=== PATIENT | female | born 1980 | race Hispanic/Latino ===

== ENCOUNTER 2017-08-01 10:27 | Emergency (ER) | payer OTHER ==
[~2017-08-01 10:27] MED LIST: ALBU8.5H8 IH; CICL6.1H2 IH; MOME13HF2 IH; MONT10TA21 PO
[2017-08-01] MEDS ORDERED: IPRATROPIUM/ALBUTEROL SULFATE 3 ML SOLUTION IH ONE (10:50)
[2017-08-01] MEDS ORDERED: METHYLPREDNISOLONE SOD SUCC 125MG/2ML VIAL ONE (10:51)
[2017-08-01] MEDS ORDERED: MAGNESIUM 2GM PREMIX 50ML 50 ML IV ONE (11:02)
[2017-08-01 11:04] LABS: BASOPHILS % (AUTO) 0.8 % (0.0-5.0); EOSINOPHILS % (AUTO) 5.9 % (0.0-8.0); HEMATOCRIT 28.6 % (36-48); LYMPHOCYTES % (AUTO) 29.3 % (21.0-51.0); MEAN CORPUSCULAR HEMOGLOBIN 21.5 pg (27.0-33.0); MEAN CORPUSCULAR HGB CONC 31.2 g/dL (32.0-36.0); MEAN CORPUSCULAR VOLUME 68.7 fL (79-99); MONOCYTES % (AUTO) 4.7 % (3.0-13.0); NEUTROPHILS % (AUTO) 59.3 % (40.0-77.0); PLATELET COUNT (AUTO) 360 K/uL (130-400); RED BLOOD CELL COUNT(AUTO) 4.16 MIL/uL (4.00-5.50); RED CELL DISTRIBUTION WIDTH 19.6 % (11.0-15.5); WHITE BLOOD COUNT (AUTO) 7.2 K/uL (4.8-10.8)
[2017-08-01 11:24] LABS: CREATININE 0.9 mg/dL (0.5-1.5)
[2017-08-01 11:30] LABS: ALBUMIN 3.3 g/dL (3.5-5.0); BILIRUBIN,DIRECT 0.1 mg/dL (0.0-0.3); BILIRUBIN,TOTAL 0.3 mg/dL (0.2-1.0); TOTAL PROTEIN, SERUM 7.4 g/dL (6.0-8.3)
[2017-08-01] MEDS ORDERED: ALBUTEROL SULFATE 0.083% 2.5 MG/3 ML INH IH ONE ×4 (11:42→11:43)
== END 2017-08-01 13:29 | disposition home or self-care (01) ==
LOC: EDH 10:27
DX: J45.41 Moderate persistent asthma with (acute) exacerbation (principal)
CPT/HCPCS: 36415; 71045; 80048; 80076; 84484; 85025; 93005; 94640; 94644; 94761; 96365; 96375; 99285; J2930; J3475

== ENCOUNTER 2017-11-26 11:08 | Emergency (ER) | payer MEDICAID, OTHER ==
[2017-11-26] MEDS ORDERED: IPRATROPIUM/ALBUTEROL SULFATE 3 ML SOLUTION IH ONE (12:16)
[2017-11-26] MEDS ORDERED: DEXAMETHASONE SOD PHOSPHATE 10MG/ML 1ML VIAL ONE (12:28)
== END 2017-11-26 12:45 | disposition home or self-care (01) ==
LOC: EDH 11:08
DX: J10.1 Influenza due to other identified influenza virus with other respiratory manifestations (principal); J45.21 Mild intermittent asthma with (acute) exacerbation
CPT/HCPCS: 94640; 96372; 99283; J1100

== ENCOUNTER 2017-11-28 00:05 | Emergency (ER) | payer MEDICAID, OTHER ==
[2017-11-28] MEDS ORDERED: IPRATROPIUM/ALBUTEROL SULFATE 3 ML SOLUTION IH ONE (00:29)
[2017-11-28] MEDS ORDERED: ALBUTEROL SULFATE 0.083% 2.5 MG/3 ML INH IH ONE ×2 (00:39)
[2017-11-28] MEDS ORDERED: DEXAMETHASONE SOD PHOSPHATE 10MG/ML 1ML VIAL ONE (01:24)
== END 2017-11-28 02:33 | disposition home or self-care (01) ==
LOC: EDH 00:05
DX: J45.901 Unspecified asthma with (acute) exacerbation (principal)
CPT/HCPCS: 71045; 94640 ×3; 96372; 99285; J1100

== ENCOUNTER 2018-06-20 12:30 | Emergency (ER) | payer OTHER ==
[2018-06-20 13:34] LABS: APPEARANCE,URINE TURBID (CLEAR); BILIRUBIN,URINE SMALL (NEGATIVE); COLOR,URINE RED (YELLOW); GLUCOSE, URINE (UA) NEGATIVE (NEGATIVE); KETONES,URINE 5 mg/dL (NEGATIVE); LEUKOCYTE ESTERASE ,URINE NEGATIVE (NEGATIVE); NITRATE,URINE POSITIVE (NEGATIVE); OCCULT BLOOD,URINE LARGE (NEGATIVE); PROTEIN,URINE 100 mg/dL (NEGATIVE)
[2018-06-20 13:36] LABS: HCG,QUAL RESULT NEGATIVE (NEGATIVE)
[2018-06-20 13:43] LABS: BACTERIA,URINE Rare /HPF (None Seen); RBC,URINE TNTC /HPF (0-1); SQUAMOUS EPITHELIAL CELL,UR Few /HPF (0-2); WBC,URINE 0-1 /HPF (0-1)
[2018-06-20 13:50] LABS: BASOPHILS % (AUTO) 1.1 % (0.0-5.0); EOSINOPHILS % (AUTO) 4.6 % (0.0-8.0); LYMPHOCYTES % (AUTO) 32.7 % (21.0-51.0); MEAN CORPUSCULAR HEMOGLOBIN 25.3 pg (27.0-33.0); MEAN CORPUSCULAR HGB CONC 33.1 g/dL (32.0-36.0); MEAN CORPUSCULAR VOLUME 76.6 fL (79-99); MONOCYTES % (AUTO) 5.3 % (3.0-13.0); NEUTROPHILS % (AUTO) 56.3 % (40.0-77.0); NUCLEATED RED BLOOD CELLS 0.1 % (0.0-0.19); PLATELET COUNT (AUTO) 333 K/uL (130-400); RED BLOOD CELL COUNT(AUTO) 3.52 MIL/uL (4.00-5.50); RED CELL DISTRIBUTION WIDTH 16.8 % (11.0-15.5); WHITE BLOOD COUNT (AUTO) 4.3 K/uL (4.8-10.8)
[2018-06-20 13:57] LABS: CHLORIDE 104 mmol/L (101-111); CREATININE 0.8 mg/dL (0.5-1.5); GLUCOSE,RANDOM 103 mg/dL (70-105); POTASSIUM 3.6 mmol/L (3.5-5.1); SODIUM SERUM 137 mmol/L (136-145); UREA NITROGEN, BLOOD 13 mg/dL (7-18)
[2018-06-20 14:02] LABS: CARBON DIOXIDE 26 mmol/L (21-32); INR 1.03 (0.85-1.15); PARTIAL THROMBOPLASTIN TIME 29.5 SEC (26.3-35.5); PROTHROMBIN TIME 10.8 SEC (9.6-11.6)
== END 2018-06-20 15:29 | disposition home or self-care (01) ==
LOC: EDH 12:30
DX: N92.1 Excessive and frequent menstruation with irregular cycle (principal); J45.909 Unspecified asthma, uncomplicated
CPT/HCPCS: 36415; 76856; 80048; 81001; 81025; 85025; 85610; 85730

== ENCOUNTER 2018-09-03 19:18 | Inpatient (IN) | payer OTHER ==
[~2018-09-03] VITALS: Ht 157.5 cm; Wt 126.6 kg
[2018-09-03 19:40] LABS: BASOPHILS % (AUTO) 0.6 % (0.0-5.0); EOSINOPHILS % (AUTO) 2.2 % (0.0-8.0); LYMPHOCYTES % (AUTO) 21.9 % (21.0-51.0); MEAN CORPUSCULAR HEMOGLOBIN 21.5 pg (27.0-33.0); MEAN CORPUSCULAR HGB CONC 30.9 g/dL (32.0-36.0); MEAN CORPUSCULAR VOLUME 69.6 fL (79-99); MONOCYTES % (AUTO) 5.5 % (3.0-13.0); NEUTROPHILS % (AUTO) 69.8 % (40.0-77.0); NUCLEATED RED BLOOD CELLS 0.1 % (0.0-0.19); PLATELET COUNT (AUTO) 411 K/uL (130-400); RED BLOOD CELL COUNT(AUTO) 2.96 MIL/uL (4.00-5.50); RED CELL DISTRIBUTION WIDTH 17.5 % (11.0-15.5)
[2018-09-03] MEDS ORDERED: ASPIRIN 325 MG TABLET ONE (19:43)
[2018-09-03 19:47] LABS: CREATININE 1.1 mg/dL (0.5-1.5); POTASSIUM 3.4 mmol/L (3.5-5.1)
[2018-09-03 19:52] LABS: ALBUMIN 3.3 g/dL (3.5-5.0); BILIRUBIN,TOTAL 0.2 mg/dL (0.2-1.0); TOTAL PROTEIN, SERUM 7.2 g/dL (6.0-8.3)
[2018-09-03 20:00] LABS: B-TYPE NATRIURETIC PEPTIDE 33 pg/mL (0-100)
[2018-09-03 20:02] LABS: HEMATOCRIT 20.6 % (36-48)
[2018-09-03 20:02] LABS: AMPHET/METH SCREEN,URINE NEGATIVE (NEGATIVE); BARBITURATE SCREEN, URINE NEGATIVE (NEGATIVE); BENZODIAZEPINES SCREEN,URINE NEGATIVE (NEGATIVE); CANNABINOID SCREEN,URINE NEGATIVE (NEGATIVE); COCAINE SCREEN,URINE NEGATIVE (NEGATIVE); OPIATE SCREEN,URINE NEGATIVE (NEGATIVE); PHENCYCLIDINE SCREEN,URINE NEGATIVE (NEGATIVE)
[2018-09-03] MEDS ORDERED: ACETAMINOPHEN 325 MG TAB PO PRN (21:30)
[2018-09-03] MEDS ORDERED: ONDANSETRON HCL 4 MG/2 ML VIAL IV PRN (21:30)
[2018-09-03] MEDS: SERTRALINE HCL 50 MG TABLET PO SCH (21:45)
[2018-09-03] MEDS ORDERED: HYDROXYZINE HCL 25 MG TABLET ONE (22:07)
[2018-09-03] MEDS ORDERED: SERTRALINE HCL 50 MG TABLET ONE (22:07)
[2018-09-03] MEDS ORDERED: SODIUM CHLORIDE 0.9% 250 ML IV ONE (23:48)
--- NOTE | 2018-09-04 01:20 | NUR ---
PT. RECEIVED FROM ER VIA STRETCHER. PRBC UNIT #1 INFUSING.
--- NOTE | 2018-09-04 01:20 | NUR ---
ONE YELLOW BRACELET, 2 RINGS AND A PAIR OF LOOP EARRINGS. Addendum: 09/04/18 at 0440 by EMMY LVOE RN RN Amended: Links added.
[2018-09-04 01:25] VITALS: BP 136/78
[2018-09-04 03:00] VITALS: BP 162/74
--- NOTE | 2018-09-04 03:00 | NUR ---
PRBC #1 INFUSED, VS STABLE.
--- NOTE | 2018-09-04 03:15 | NUR ---
PRBC #2 STARTED. VS REMAIN STABLE. NO REACTION NOTED.
[2018-09-04] MEDS ORDERED: ALBU8.5H8 IH ×2 (04:49)
[2018-09-04] MEDS ORDERED: HYD25 PO ×2 (04:51)
[2018-09-04] MEDS ORDERED: SERT50TA PO ×2 (04:52)
[2018-09-04] MEDS ORDERED: ADV250 IH ×2 (04:54)
--- NOTE | 2018-09-04 06:00 | NUR ---
PRBC #2 INFUSED, NORMAL SALINE INFUSING. PT. DENIED TRANSFUSION REACTION
[2018-09-04 07:48] VITALS: BP 122/65
--- NOTE | 2018-09-04 08:05 | NUR ---
ROUNDING DR. Adkins AND JOHNATHAN DESAI AT BEDSIDE TO ASSESS AND TALK TO PT. PT DENIES PAIN AND HAS NO COMPLAINTS AT THIS TIME.
[2018-09-04 08:11] LABS: HEMATOCRIT 27.6 % (36-48); MEAN CORPUSCULAR HGB CONC 30.8 g/dL (32.0-36.0); MEAN CORPUSCULAR VOLUME 74.6 fL (79-99); NUCLEATED RED BLOOD CELLS 0.1 % (0.0-0.19); PLATELET COUNT (AUTO) 364 K/uL (130-400); RED CELL DISTRIBUTION WIDTH 18.1 % (11.0-15.5)
[2018-09-04] MEDS: ACETAMINOPHEN 325 MG TAB PO PRN (08:26)
[2018-09-04] MEDS: FAMOTIDINE/PF 20 MG/2 ML VIAL IV SCH ×2 (08:26→20:35)
[2018-09-04] MEDS: HYDROXYZINE HCL 25 MG TABLET PO PRN ×2 (08:28→16:52)
--- NOTE | 2018-09-04 08:30 | NUR ---
PT STATED WAS FEELING ANXIOUS AND HAD SOME SLIGHT CHEST PAIN, REPORTED AT A 2. PT REQUESTED ATARAX FOR ANXIETY AND WAS GIVEN AT THIS TIME. WILL CONTINUE TO MONITOR.
[2018-09-04] MEDS ORDERED: VENTOLIN HFA IH PRN (09:00)
--- NOTE | 2018-09-04 11:45 | NUR ---
REPORTED TO DR. Adkins THAT PT CONTINUES WITH CHEST PAIN. NEW ORDERS RECEIVED
[2018-09-04 11:47] VITALS: BP 119/55
[2018-09-04 12:37] LABS: HEMATOCRIT 25.9 % (36-48); MEAN CORPUSCULAR HGB CONC 31.9 g/dL (32.0-36.0); MEAN CORPUSCULAR VOLUME 72.3 fL (79-99); NUCLEATED RED BLOOD CELLS 0.1 % (0.0-0.19); PLATELET COUNT (AUTO) 353 K/uL (130-400); RED BLOOD CELL COUNT(AUTO) 3.59 MIL/uL (4.00-5.50); RED CELL DISTRIBUTION WIDTH 18.3 % (11.0-15.5); WHITE BLOOD COUNT (AUTO) 6.4 K/uL (4.8-10.8)
--- NOTE | 2018-09-04 12:50 | NUR ---
REPORT RECEIVED FROM WILLIAM HARRIS (). PATIENT TRANSFERRED FROM ROOM 119 TO 312 VIA WHEELCHAIR. PATIENT STABLE AT THIS TIME.
[2018-09-04 12:55] LABS: CREATINE KINASE, TOTAL 40 U/L (21-232); MYOGLOBIN 33 ng/mL (10-92); TROPONIN I < 0.04 ng/mL (0.00-0.06)
[2018-09-04 14:33] VITALS: BP 118/95
--- NOTE | 2018-09-04 14:38 | NUR ---
DCP CM met with pt discussed dc plans. Pt is independent prior to admission, lives at home with spouse. Denies any equipments/services. Pt feels safe to go back home, still drives, spouse able to assist with transportation and needs as necessry. DC plan to home once stable. CM to cont to follow up. Addendum: 09/04/18 at 1440 by MIROSLAVA BECKMAN LVN CM Amended: Links added.
[2018-09-04] MEDS ORDERED: HYDROCODONE/ACETAMINOPHEN 5/325 MG TAB PO PRN (17:00)
[2018-09-04 19:15] VITALS: BP 149/81
[2018-09-04 20:17] LABS: CREATINE KINASE, TOTAL 42 U/L (21-232); MYOGLOBIN 26 ng/mL (10-92); TROPONIN I < 0.04 ng/mL (0.00-0.06)
[2018-09-04] MEDS: FERROUS SULFATE 325 MG TABLET.DR PO SCH (20:35)
[2018-09-04] MEDS: SERTRALINE HCL 50 MG TABLET PO SCH (20:35)
[2018-09-05 00:10] VITALS: BP 143/79
[2018-09-05] MEDS: HYDROXYZINE HCL 25 MG TABLET PO PRN ×2 (00:22→09:03)
[2018-09-05] MEDS: ACETAMINOPHEN 325 MG TAB PO PRN (00:23)
[2018-09-05 04:12] VITALS: BP 145/68
[2018-09-05 06:43] LABS: MEAN CORPUSCULAR HEMOGLOBIN 22.5 pg (27.0-33.0); MEAN CORPUSCULAR HGB CONC 31.6 g/dL (32.0-36.0); MEAN CORPUSCULAR VOLUME 71.1 fL (79-99); NUCLEATED RED BLOOD CELLS 0.1 % (0.0-0.19); PLATELET COUNT (AUTO) 370 K/uL (130-400); RED BLOOD CELL COUNT(AUTO) 3.66 MIL/uL (4.00-5.50); RED CELL DISTRIBUTION WIDTH 18.1 % (11.0-15.5); WHITE BLOOD COUNT (AUTO) 7.4 K/uL (4.8-10.8)
[2018-09-05 07:07] LABS: CARBON DIOXIDE 26 mmol/L (21-32); CHLORIDE 106 mmol/L (101-111); CREATINE KINASE, TOTAL 39 U/L (21-232); CREATININE 0.8 mg/dL (0.5-1.5); GLOMERULAR FILTR. RATE CALC 86 mL/min (>60); GLUCOSE,RANDOM 99 mg/dL (70-105); MYOGLOBIN 29 ng/mL (10-92); POTASSIUM 3.8 mmol/L (3.5-5.1); SODIUM SERUM 138 mmol/L (136-145); TROPONIN I < 0.04 ng/mL (0.00-0.06); UREA NITROGEN, BLOOD 10 mg/dL (7-18)
[2018-09-05 08:00] VITALS: BP 122/52
[2018-09-05] MEDS: FERROUS SULFATE 325 MG TABLET.DR PO SCH (09:01)
[2018-09-05] MEDS: FAMOTIDINE/PF 20 MG/2 ML VIAL IV SCH (09:01)
[2018-09-05] MEDS ORDERED: FERR324T4 PO ×2 (10:11)
[2018-09-05 11:45] VITALS: BP 120/65
[2018-09-05 12:24] LABS: CREATINE KINASE, TOTAL 44 U/L (21-232); MYOGLOBIN 24 ng/mL (10-92); TROPONIN I < 0.04 ng/mL (0.00-0.06)
--- NOTE | 2018-09-05 15:30 | NUR ---
DISCHARGE PATIENT GIVEN DISCHARGE INSTRUCTIONS VIA TEACH BACK. RX GIVEN FOR FERROUS SULFATE 325MG 1 TAB PO TID X 30 DAYS. PATIENT WITH FOLLOW UP APPOINTMENT WITH DR. ALANNAH CONWAY AT [facility] AND DR. VALLE ([employer]). 20G PIV TO LAC DISCONTINUED, TIP INTACT. PATIENT STABLE AT THIS TIME. PATIENT WHEELED DOWN TO LOBBY BY BARBARA HALE AND SPOUSE.
== END 2018-09-05 15:30 | disposition home or self-care (01) | DRG 392 ==
LOC: EDH 19:18 → OBSVTOIN 19:19 → EDHIP 19:19 → WSH 09-04 01:30 → 3BH 09-04 12:58
PROVIDERS: ADMIT Hospitalist; ATTEND Hospitalist
PROC: 30233N1 Transfusion of Nonautologous Red Blood Cells into Peripheral Vein, Percutaneous Approach (ICD-10-PCS; principal; 2018-09-03)
DX: K21.9 Gastro-esophageal reflux disease without esophagitis (principal); N17.9 Acute kidney failure, unspecified; N92.0 Excessive and frequent menstruation with regular cycle; D50.0 Iron deficiency anemia secondary to blood loss (chronic); J45.909 Unspecified asthma, uncomplicated; F41.9 Anxiety disorder, unspecified; D75.1 Secondary polycythemia; Z82.5 Family history of asthma and other chronic lower respiratory diseases; Z83.3 Family history of diabetes mellitus; Z82.49 Family history of ischemic heart disease and other diseases of the circulatory system; Z82.3 Family history of stroke; Z82.0 Family history of epilepsy and other diseases of the nervous system
CPT/HCPCS: 36415; 36430; 71045; 80048; 80053; 80305; 82550; 83874; 83880; 84484; 85025; 85027; 86850; 86900; 86901; 86922; 93005; 99291; G0378; J3490; J7030; P9016

== ENCOUNTER 2018-09-07 22:48 | Emergency (ER) | payer OTHER ==
[~2018-09-07 22:48] MED LIST changes: +ADV250 IH; +FERR324T4 PO; +HYD25 PO; +SERT50TA PO
[2018-09-07 23:50] LABS: BASOPHILS % (AUTO) 0.9 % (0.0-5.0); EOSINOPHILS % (AUTO) 3.7 % (0.0-8.0); HEMATOCRIT 27.6 % (36-48); LYMPHOCYTES % (AUTO) 21.3 % (21.0-51.0); MEAN CORPUSCULAR HEMOGLOBIN 23.2 pg (27.0-33.0); MEAN CORPUSCULAR HGB CONC 31.9 g/dL (32.0-36.0); MEAN CORPUSCULAR VOLUME 72.9 fL (79-99); MONOCYTES % (AUTO) 4.8 % (3.0-13.0); NEUTROPHILS % (AUTO) 69.3 % (40.0-77.0); PLATELET COUNT (AUTO) 380 K/uL (130-400); RED BLOOD CELL COUNT(AUTO) 3.78 MIL/uL (4.00-5.50); RED CELL DISTRIBUTION WIDTH 19.5 % (11.0-15.5); WHITE BLOOD COUNT (AUTO) 7.4 K/uL (4.8-10.8)
[2018-09-08] LABS: APPEARANCE,URINE Cloudy (CLEAR); BILIRUBIN,URINE Negative (NEGATIVE); COLOR,URINE Dark Yellow (YELLOW); GLUCOSE, URINE (UA) Negative (NEGATIVE); KETONES,URINE Trace mg/dL (NEGATIVE); LEUKOCYTE ESTERASE ,URINE Negative (NEGATIVE); NITRATE,URINE Negative (NEGATIVE); OCCULT BLOOD,URINE Negative (NEGATIVE); PROTEIN,URINE POS 1+ mg/dL (NEGATIVE)
[2018-09-08 00:05] LABS: CREATININE 1.5 mg/dL (0.5-1.5); POTASSIUM 4.1 mmol/L (3.5-5.1)
[2018-09-08 00:17] LABS: ALBUMIN 3.2 g/dL (3.5-5.0); BILIRUBIN,TOTAL 0.3 mg/dL (0.2-1.0); TOTAL PROTEIN, SERUM 7.5 g/dL (6.0-8.3)
[2018-09-08 00:22] LABS: BACTERIA,URINE Few /HPF (None Seen); MUCUS,URINE Moderate LPF (None Seen); RBC,URINE 0-1 /HPF (0-1); WBC,URINE 0-1 /HPF (0-1)
[2018-09-08] MEDS ORDERED: DICYCLOMINE HCL 10 MG/ML 2ML AMP IM ONE (01:06)
[2018-09-08] MEDS ORDERED: CYCLOBENZAPRINE HCL 10 MG TABLET ONE (01:07)
[2018-09-08] MEDS ORDERED: METOCLOPRAMIDE 10 MG TABLET ONE (01:07)
[2018-09-08] MEDS ORDERED: ONDANSETRON ODT 4 MG TAB ONE (01:08)
== END 2018-09-08 02:16 | disposition home or self-care (01) ==
LOC: EDH 22:48
DX: R10.30 Lower abdominal pain, unspecified (principal); R19.7 Diarrhea, unspecified; R11.0 Nausea; J45.909 Unspecified asthma, uncomplicated; F41.9 Anxiety disorder, unspecified; F32.9 Major depressive disorder, single episode, unspecified; Z98.890 Other specified postprocedural states
CPT/HCPCS: 36415; 80053; 81001; 81025; 83690; 85025; 96372; 99284; J0500

== ENCOUNTER 2018-10-26 16:24 | Emergency (ER) | payer MEDICAID ==
[~2018-10-26 16:24] MED LIST changes: -CICL6.1H2 IH; -MOME13HF2 IH; -MONT10TA21 PO
[2018-10-26 17:21] LABS: CREATININE 0.8 mg/dL (0.5-1.5); POTASSIUM 3.3 mmol/L (3.5-5.1)
[2018-10-26 17:24] LABS: BASOPHILS % (AUTO) 0.8 % (0.0-5.0); EOSINOPHILS % (AUTO) 6.9 % (0.0-8.0); HEMATOCRIT 26.6 % (36-48); LYMPHOCYTES % (AUTO) 28.9 % (21.0-51.0); MEAN CORPUSCULAR HGB CONC 31.7 g/dL (32.0-36.0); MEAN CORPUSCULAR VOLUME 72.6 fL (79-99); MONOCYTES % (AUTO) 5.1 % (3.0-13.0); NEUTROPHILS % (AUTO) 58.3 % (40.0-77.0); PLATELET COUNT (AUTO) 385 K/uL (130-400); RED BLOOD CELL COUNT(AUTO) 3.66 MIL/uL (4.00-5.50); WHITE BLOOD COUNT (AUTO) 5.4 K/uL (4.8-10.8)
[2018-10-26 17:27] LABS: ALCOHOL, BLOOD < 3 mg/dL (0-10); INR 1.03 (0.85-1.15); PARTIAL THROMBOPLASTIN TIME 25.7 SEC (26.3-35.5); PROTHROMBIN TIME 10.8 SEC (9.6-11.6)
[2018-10-26 17:29] LABS: ACETAMINOPHEN < 1 mcg/mL (10-30); SALICYLATE < 2.8 mg/dL (2.8-20.0)
[2018-10-26 17:30] LABS: APPEARANCE,URINE Clear (CLEAR); BILIRUBIN,URINE Negative (NEGATIVE); COLOR,URINE Yellow (YELLOW); GLUCOSE, URINE (UA) Negative (NEGATIVE); KETONES,URINE Negative (NEGATIVE); LEUKOCYTE ESTERASE ,URINE Negative (NEGATIVE); NITRATE,URINE Negative (NEGATIVE); OCCULT BLOOD,URINE Moderate (NEGATIVE); PH,URINE 6.5 (5.0-8.0); PROTEIN,URINE Negative (NEGATIVE)
[2018-10-26 17:32] LABS: ALBUMIN 3.1 g/dL (3.5-5.0); BILIRUBIN,TOTAL 0.2 mg/dL (0.2-1.0); TOTAL PROTEIN, SERUM 7.2 g/dL (6.0-8.3)
[2018-10-26 17:38] LABS: HCG,QUAL RESULT NEGATIVE (NEGATIVE)
[2018-10-26 17:46] LABS: BACTERIA,URINE Few /HPF (None Seen); SQUAMOUS EPITHELIAL CELL,UR Few /HPF (0-2); WBC,URINE 0-1 /HPF (0-1)
[2018-10-26 17:57] LABS: AMPHET/METH SCREEN,URINE NEGATIVE (NEGATIVE); BARBITURATE SCREEN, URINE NEGATIVE (NEGATIVE); BENZODIAZEPINES SCREEN,URINE POSITIVE (NEGATIVE); CANNABINOID SCREEN,URINE NEGATIVE (NEGATIVE); COCAINE SCREEN,URINE POSITIVE (NEGATIVE); OPIATE SCREEN,URINE NEGATIVE (NEGATIVE); PHENCYCLIDINE SCREEN,URINE NEGATIVE (NEGATIVE)
[2018-10-26] MEDS ORDERED: ALBUTEROL SULFATE 0.083% 2.5 MG/3 ML INH IH ONE ×2 (20:02→22:29)
[2018-10-26] MEDS ORDERED: POTASSIUM BICARB/CIT AC 25 MEQ TABLET.EFF ONE (20:30)
[2018-10-26] MEDS ORDERED: HYDRALAZINE HCL 20 MG/ML VIAL ONE (23:32)
== END 2018-10-27 00:25 ==
LOC: EDH 16:24
DX: T42.4X2A Poisoning by benzodiazepines, intentional self-harm, initial encounter (principal); F23 Brief psychotic disorder; J45.909 Unspecified asthma, uncomplicated; F41.9 Anxiety disorder, unspecified; F31.9 Bipolar disorder, unspecified; Z98.890 Other specified postprocedural states; Y92.89 Other specified places as the place of occurrence of the external cause
CPT/HCPCS: 36415; 71045; 80053; 80305; 81001; 81025; 82550; 83874; 84484; 85025; 85610; 85730; 93005; 94640 ×2; 96365; 99285; G0480 ×2; G0481; J0360

== ENCOUNTER 2019-01-24 18:26 | Emergency (ER) | payer MEDICAID ==
[2019-01-24 19:01] LABS: APPEARANCE,URINE Clear (CLEAR); BILIRUBIN,URINE Negative (NEGATIVE); COLOR,URINE Yellow (YELLOW); GLUCOSE, URINE (UA) Negative (NEGATIVE); KETONES,URINE Negative (NEGATIVE); LEUKOCYTE ESTERASE ,URINE Moderate (NEGATIVE); NITRATE,URINE Negative (NEGATIVE); OCCULT BLOOD,URINE Negative (NEGATIVE); PROTEIN,URINE Negative (NEGATIVE)
[2019-01-24 19:10] LABS: AMPHET/METH SCREEN,URINE NEGATIVE (NEGATIVE); BARBITURATE SCREEN, URINE NEGATIVE (NEGATIVE); BENZODIAZEPINES SCREEN,URINE NEGATIVE (NEGATIVE); CANNABINOID SCREEN,URINE NEGATIVE (NEGATIVE); COCAINE SCREEN,URINE POSITIVE (NEGATIVE); OPIATE SCREEN,URINE NEGATIVE (NEGATIVE); PHENCYCLIDINE SCREEN,URINE NEGATIVE (NEGATIVE)
[2019-01-24 19:18] LABS: HCG,QUAL RESULT NEGATIVE (NEGATIVE)
[2019-01-24 19:29] LABS: BASOPHILS % (AUTO) 0.7 % (0.0-5.0); EOSINOPHILS % (AUTO) 2.9 % (0.0-8.0); HEMATOCRIT 26.6 % (36-48); LYMPHOCYTES % (AUTO) 30.9 % (21.0-51.0); MEAN CORPUSCULAR HEMOGLOBIN 20.9 pg (27.0-33.0); MEAN CORPUSCULAR HGB CONC 29.3 g/dL (32.0-36.0); MEAN CORPUSCULAR VOLUME 71.1 fL (79-99); NEUTROPHILS % (AUTO) 59.2 % (40.0-77.0); PLATELET COUNT (AUTO) 455 K/uL (130-400); RED BLOOD CELL COUNT(AUTO) 3.74 MIL/uL (4.00-5.50); RED CELL DISTRIBUTION WIDTH 17.9 % (11.0-15.5); WHITE BLOOD COUNT (AUTO) 5.8 K/uL (4.8-10.8)
[2019-01-24 19:36] LABS: RBC,URINE None Seen /HPF (0-1)
[2019-01-24 19:37] LABS: BACTERIA,URINE Few /HPF (None Seen)
[2019-01-24 19:38] LABS: CREATININE 0.8 mg/dL (0.5-1.5); POTASSIUM 3.9 mmol/L (3.5-5.1)
[2019-01-24 19:42] LABS: ALBUMIN 3.3 g/dL (3.5-5.0); BILIRUBIN,TOTAL 0.3 mg/dL (0.2-1.0); TOTAL PROTEIN, SERUM 7.7 g/dL (6.0-8.3)
[2019-01-24] MEDS ORDERED: ACETAMINOPHEN EXTRA STRENGTH 500 MG TABLET ONE (19:49)
== END 2019-01-24 20:15 | disposition home or self-care (01) ==
LOC: EDH 18:26
DX: R07.89 Other chest pain (principal); J00 Acute nasopharyngitis [common cold]; G44.209 Tension-type headache, unspecified, not intractable; F14.10 Cocaine abuse, uncomplicated; F41.9 Anxiety disorder, unspecified; J45.909 Unspecified asthma, uncomplicated; F32.9 Major depressive disorder, single episode, unspecified
CPT/HCPCS: 36415; 71046; 80053; 80305; 81001; 81025; 84484; 85025; 87880; 93005

== ENCOUNTER 2019-07-01 15:27 | Observation (INO) | payer MEDICAID ==
[2019-07-01 16:12] LABS: BASOPHILS % (AUTO) 0.5 % (0.0-5.0); EOSINOPHILS % (AUTO) 1.9 % (0.0-8.0); HEMATOCRIT 24.5 % (36-48); LYMPHOCYTES % (AUTO) 29.3 % (21.0-51.0); MEAN CORPUSCULAR HEMOGLOBIN 19.9 pg (27.0-33.0); MEAN CORPUSCULAR HGB CONC 28.2 g/dL (32.0-36.0); MEAN CORPUSCULAR VOLUME 70.8 fL (79-99); MONOCYTES % (AUTO) 5.8 % (3.0-13.0); NEUTROPHILS % (AUTO) 62.3 % (40.0-77.0); PLATELET COUNT (AUTO) 332 K/uL (130-400); RED BLOOD CELL COUNT(AUTO) 3.46 MIL/uL (4.00-5.50); RED CELL DISTRIBUTION WIDTH 17.2 % (11.0-15.5); WHITE BLOOD COUNT (AUTO) 5.7 K/uL (4.8-10.8)
[2019-07-01 16:28] LABS: CREATININE 0.8 mg/dL (0.5-1.5); POTASSIUM 3.3 mmol/L (3.5-5.1)
[2019-07-01 16:30] LABS: INR 0.96 (0.85-1.15); PARTIAL THROMBOPLASTIN TIME 25.5 SEC (26.3-35.5); PROTHROMBIN TIME 10.4 SEC (9.6-11.6)
[2019-07-01 16:32] LABS: ALBUMIN 3.4 g/dL (3.5-5.0); BILIRUBIN,TOTAL 0.3 mg/dL (0.2-1.0); TOTAL PROTEIN, SERUM 7.2 g/dL (6.0-8.3)
[2019-07-01 17:03] LABS: AMPHET/METH SCREEN,URINE NEGATIVE (NEGATIVE); BARBITURATE SCREEN, URINE NEGATIVE (NEGATIVE); BENZODIAZEPINES SCREEN,URINE NEGATIVE (NEGATIVE); CANNABINOID SCREEN,URINE NEGATIVE (NEGATIVE); COCAINE SCREEN,URINE POSITIVE (NEGATIVE); OPIATE SCREEN,URINE NEGATIVE (NEGATIVE); PHENCYCLIDINE SCREEN,URINE NEGATIVE (NEGATIVE)
[2019-07-01] MEDS ORDERED: POTASSIUM CHLORIDE 10% ELIXIR 20 MEQ/15 ML UDCUP PO PRN (22:15)
[2019-07-01] MEDS ORDERED: LIDOCAINE HCL-MPF 1% 2ML VIAL IV PRN (22:15)
[2019-07-01] MEDS ORDERED: POTASSIUM CHLORIDE 20MEQ/100ML 100 ML IV PRN (22:15)
[2019-07-01] MEDS ORDERED: NITROGLYCERIN 1GM/1 INCH PACKET TD SCH (22:15)
[2019-07-01] MEDS ORDERED: ONDANSETRON HCL 4 MG/2 ML VIAL IV PRN (22:15)
[2019-07-01] MEDS ORDERED: MAGNESIUM 2GM PREMIX 50ML 50 ML IV PRN (22:15)
[2019-07-01] MEDS ORDERED: LACTATED RINGERS 1000ML 1,000 ML IV SCH (22:15)
[2019-07-01] MEDS ORDERED: POTASSIUM CHLORIDE 20 MEQ ERTAB PO PRN (22:15)
[2019-07-01] MEDS ORDERED: LACTATED RINGERS 1000ML 1,000 ML IV ONE (22:44)
[2019-07-01] MEDS ORDERED: NITROGLYCERIN 1GM/1 INCH PACKET TD ONE (22:44)
[2019-07-01] MEDS ORDERED: FAMOTIDINE/PF 20 MG/2 ML VIAL IV ONE (22:45)
[2019-07-01] MEDS ORDERED: ACETAMINOPHEN 325 MG TAB ONE (22:54)
[2019-07-02] MEDS ORDERED: ACETAMINOPHEN 325 MG TAB ONE (03:58)
[2019-07-02 07:59] LABS: BASOPHILS % (AUTO) 0.8 % (0.0-5.0); EOSINOPHILS % (AUTO) 2.7 % (0.0-8.0); HEMATOCRIT 24.9 % (36-48); MEAN CORPUSCULAR HEMOGLOBIN 20.7 pg (27.0-33.0); MEAN CORPUSCULAR HGB CONC 28.9 g/dL (32.0-36.0); MEAN CORPUSCULAR VOLUME 71.8 fL (79-99); MONOCYTES % (AUTO) 5.6 % (3.0-13.0); NEUTROPHILS % (AUTO) 52.7 % (40.0-77.0); PLATELET COUNT (AUTO) 318 K/uL (130-400); RED BLOOD CELL COUNT(AUTO) 3.47 MIL/uL (4.00-5.50); RED CELL DISTRIBUTION WIDTH 17.3 % (11.0-15.5); WHITE BLOOD COUNT (AUTO) 5.9 K/uL (4.8-10.8)
[2019-07-02 08:21] LABS: ALBUMIN 3.1 g/dL (3.5-5.0); BILIRUBIN,TOTAL 0.4 mg/dL (0.2-1.0); CREATININE 0.7 mg/dL (0.5-1.5); POTASSIUM 3.5 mmol/L (3.5-5.1); THYROID STIMULATING HORMONE 3.1 uIU/mL (0.36-3.74); TOTAL PROTEIN, SERUM 6.7 g/dL (6.0-8.3)
[2019-07-02 08:29] LABS: HEMOGLOBIN A1C 4.9 % (4.0-6.0)
[2019-07-02] MEDS ORDERED: FAMOTIDINE/PF 20 MG/2 ML VIAL IV SCH (09:00)
--- NOTE | 2019-07-02 09:30 | NUR ---
DCP: HOME Sw met with pt who states she lives with her Pop Hinojosa [phone] nd their 3 kids. Pt reports she is independent of all ADLS, drives and has no in home care services. PCP is Renay Dhaliwal and [facility] is pharm of choice. Plan is home with family at ri Addendum: 07/02/19 at 0932 by NIKHIL SELLERS Amended: Links added.
[2019-07-02] MEDS ORDERED: FAMOTIDINE/PF 20 MG/2 ML VIAL IV ONE (09:33)
[2019-07-02] MEDS ORDERED: POTASSIUM CHLORIDE 10% ELIXIR 20 MEQ/15 ML UDCUP ONE ×2 (10:43→13:13)
[2019-07-02] MEDS ORDERED: MAGNESIUM 2GM PREMIX 50ML 50 ML IV ONE (10:43)
[2019-07-02] MEDS ORDERED: NITROGLYCERIN 1GM/1 INCH PACKET TD ONE (10:43)
[2019-07-02] MEDS ORDERED: EPOETIN ALFA 10,000 UNIT/ML VIAL SQ SCH (16:14)
[2019-07-02] MEDS ORDERED: IRON SUCROSE COMPLEX 300 MG in SODIUM CHLORIDE 0.9% 250 ML IV SCH (16:14)
[2019-07-03] MEDS ORDERED: IRON SUCROSE COMPLEX 300 MG in SODIUM CHLORIDE 0.9% 50 ML IV SCH (09:00)
== END 2019-07-02 18:38 | disposition home or self-care (01) ==
LOC: EDH 15:27 → INTOOBSV 22:04 → EDHIP 22:04
PROVIDERS: ADMIT Internal Medicine; ATTEND Internal Medicine
DX: I20.9 Angina pectoris, unspecified (principal); I10 Essential (primary) hypertension; E11.9 Type 2 diabetes mellitus without complications; E66.01 Morbid (severe) obesity due to excess calories; F14.90 Cocaine use, unspecified, uncomplicated; D64.9 Anemia, unspecified; M06.9 Rheumatoid arthritis, unspecified; M81.0 Age-related osteoporosis without current pathological fracture; Z68.42 Body mass index [BMI] 45.0-49.9, adult; Z98.51 Tubal ligation status
CPT/HCPCS: 36415 ×2; 71045; 80053 ×2; 80061; 80305; 82550; 83036; 83735; 84443; 84484 ×3; 85025 ×2; 85610; 85730; 86850; 86900; 86901; 86922; 93005; 99291; G0378 ×3; J0885; J3475; J3490 ×2; J7120; P9016; J1756; J7050

== ENCOUNTER → 2019-07-24 | Outpatient (CLI) | payer MEDICAID | END | disposition home or self-care (01) | LOC: SHCH 14:14 | PROVIDERS: ATTEND Internal Medicine Cardiovascular Disease | DX: R01.1 Cardiac murmur, unspecified (principal) | CPT/HCPCS: 93306; 93356 ==

== ENCOUNTER 2020-02-23 12:57 | Emergency (ER) | payer MEDICAID ==
[2020-02-23] MEDS ORDERED: ALBUTEROL INHALER 90MCG/INH IH ONE (13:24)
[2020-02-23] MEDS ORDERED: DEXAMETHASONE SOD PHOSPHATE 10MG/ML 1ML VIAL ONE (13:24)
[2020-02-23] MEDS ORDERED: CEFTRIAXONE 1G VIAL ONE (13:25)
[2020-02-23] MEDS ORDERED: 0.9%NACL 50ML 50 ML IV ONE (13:25)
[2020-02-23] MEDS ORDERED: ACETAMINOPHEN 325 MG TAB ONE (13:25)
[2020-02-23 13:40] LABS: HEMATOCRIT 35.3 % (36-48); MEAN CORPUSCULAR HEMOGLOBIN 28.4 pg (27.0-33.0); MEAN CORPUSCULAR HGB CONC 33.4 g/dL (32.0-36.0); MEAN CORPUSCULAR VOLUME 84.9 fL (79-99); RED BLOOD CELL COUNT(AUTO) 4.16 MIL/uL (4.00-5.50); RED CELL DISTRIBUTION WIDTH 13.3 % (11.0-15.5); WHITE BLOOD COUNT (AUTO) 6.6 K/uL (4.8-10.8)
[2020-02-23 13:52] LABS: INR 1.02 (0.85-1.15); PROTHROMBIN TIME 10.9 SEC (9.6-11.6)
[2020-02-23 13:54] LABS: CREATININE 0.9 mg/dL (0.5-1.5); PARTIAL THROMBOPLASTIN TIME 27.4 SEC (26.3-35.5); POTASSIUM 3.5 mmol/L (3.5-5.1)
[2020-02-23 13:59] LABS: ALBUMIN 3.2 g/dL (3.5-5.0); BILIRUBIN,TOTAL 0.3 mg/dL (0.2-1.0); TOTAL PROTEIN, SERUM 7.6 g/dL (6.0-8.3)
[2020-02-23] MEDS ORDERED: AZITHROMYCIN 500MG+NS 250ML 250 ML IV ONE (14:24)
[2020-02-23 14:40] LABS: ABG OXYGEN SATURATION 98.4 % (95.0-99.0); ABG PCO2 22 mmHg (32-45)
[2020-02-23] MEDS ORDERED: IOHEXOL-350 75 ML VIAL IV ONE (15:46)
[2020-02-23 16:08] LABS: APPEARANCE,URINE Cloudy (CLEAR); BILIRUBIN,URINE Negative (NEGATIVE); COLOR,URINE Dark Yellow (YELLOW); GLUCOSE, URINE (UA) Negative (NEGATIVE); KETONES,URINE Trace mg/dL (NEGATIVE); LEUKOCYTE ESTERASE ,URINE Moderate (NEGATIVE); NITRATE,URINE Negative (NEGATIVE); OCCULT BLOOD,URINE Negative (NEGATIVE); PH,URINE 5.5 (5.0-8.0); PROTEIN,URINE Trace mg/dL (NEGATIVE); UROBILINOGEN,URINE 0.2 mg/dL (0.2-1.0)
[2020-02-23 16:15] LABS: HCG,QUAL RESULT NEGATIVE (NEGATIVE)
[2020-02-23 17:47] LABS: BACTERIA,URINE Few /HPF (None Seen); RBC,URINE 0-1 /HPF (0-1); SQUAMOUS EPITHELIAL CELL,UR Moderate /HPF (0-2); WBC,URINE 0-1 /HPF (0-1)
== END 2020-02-23 17:05 | disposition home or self-care (01) ==
LOC: EDH 12:57
DX: J12.89 Other viral pneumonia (principal); J45.21 Mild intermittent asthma with (acute) exacerbation; Z20.828 Contact with and (suspected) exposure to other viral communicable diseases; F41.9 Anxiety disorder, unspecified; F32.9 Major depressive disorder, single episode, unspecified; I10 Essential (primary) hypertension; Z90.49 Acquired absence of other specified parts of digestive tract; Z90.710 Acquired absence of both cervix and uterus; Z98.890 Other specified postprocedural states
CPT/HCPCS: 36415; 36600; 71045; 71275; 80053; 81001; 81025; 82550; 82803; 83605; 83880; 84145; 84484; 85027; 85378; 85610; 85730; 87040 ×2; 87088; 87426; 93005; 96365; 96366; 96368; 96375; 99285; J0456; J0696; J1100; Q9967; U0003

== ENCOUNTER 2020-09-05 00:22 | Emergency (ER) | payer MEDICAID ==
[~2020-09-05] VITALS: Ht 157.5 cm; Wt 124.7 kg
[2020-09-05 00:54] VITALS: BP 104/53
[2020-09-05 01:55] LABS: BASOPHILS % (AUTO) 0.3 % (0.0-5.0); EOSINOPHILS % (AUTO) 0.1 % (0.0-8.0); HEMATOCRIT 33.9 % (36-48); LYMPHOCYTES % (AUTO) 14.9 % (21.0-51.0); MEAN CORPUSCULAR HEMOGLOBIN 29.2 pg (27.0-33.0); MEAN CORPUSCULAR HGB CONC 32.7 g/dL (32.0-36.0); MEAN CORPUSCULAR VOLUME 89.2 fL (79-99); MONOCYTES % (AUTO) 4.5 % (3.0-13.0); NEUTROPHILS % (AUTO) 79.7 % (40.0-77.0); PLATELET COUNT (AUTO) 285 K/uL (130-400); RED CELL DISTRIBUTION WIDTH 14.4 % (11.0-15.5); WHITE BLOOD COUNT (AUTO) 7.8 K/uL (4.8-10.8)
[2020-09-05 02:01] LABS: CREATININE 0.9 mg/dL (0.5-1.5)
[2020-09-05 02:08] LABS: ALBUMIN 3.5 g/dL (3.5-5.0); BILIRUBIN,TOTAL 0.2 mg/dL (0.2-1.0); TOTAL PROTEIN, SERUM 7.8 g/dL (6.0-8.3)
[2020-09-05 02:11] LABS: B-TYPE NATRIURETIC PEPTIDE 38 pg/mL (0-100)
[2020-09-05] MEDS ORDERED: ALBUTEROL 0.083% 2.5 MG/3 ML INH IH ONE ×2 (03:00→03:30)
[2020-09-05] MEDS ORDERED: PREDNISONE 20 MG TABLET PO ONE (03:30)
[2020-09-05] MEDS ORDERED: PRED20TA3 PO (04:18)
[2020-09-05] MEDS ORDERED: AZIT250T9 PO (04:18)
[2020-09-05] MEDS ORDERED: BENZ-17 PO (04:18)
[2020-09-05] MEDS ORDERED: ALBU8.5H8 IH (04:18)
[2020-09-05] MEDS ORDERED: AZITHROMYCIN 250 MG TABLET PO ONE ×2 (04:20→04:30)
[2020-09-05 04:34] VITALS: BP 113/72
== END 2020-09-05 04:38 | disposition home or self-care (01) ==
LOC: EDH 00:22
DX: J45.901 Unspecified asthma with (acute) exacerbation (principal); Z20.822 Contact with and (suspected) exposure to COVID-19; F32.9 Major depressive disorder, single episode, unspecified; I10 Essential (primary) hypertension; F41.9 Anxiety disorder, unspecified; Z79.52 Long term (current) use of systemic steroids; Z79.899 Other long term (current) drug therapy; Z79.51 Long term (current) use of inhaled steroids
CPT/HCPCS: 36415; 71045; 80053; 83880; 84484; 85025; 87635; 93005; 94640 ×2; 99285; C9803

== ENCOUNTER → 2020-09-30 | Outpatient (CLI) | payer MEDICAID ==
[~2020-09-30] MED LIST changes: +AZIT250T9 PO; +BENZ-17 PO; +PRED20TA3 PO
[2020-09-30 11:50] LABS: BASOPHILS % (AUTO) 0.3 % (0.0-5.0); EOSINOPHILS % (AUTO) 1.9 % (0.0-8.0); LYMPHOCYTES % (AUTO) 27.3 % (21.0-51.0); MEAN CORPUSCULAR HEMOGLOBIN 28.8 pg (27.0-33.0); MEAN CORPUSCULAR HGB CONC 31.8 g/dL (32.0-36.0); MEAN CORPUSCULAR VOLUME 90.7 fL (79-99); PLATELET COUNT (AUTO) 256 K/uL (130-400); RED BLOOD CELL COUNT(AUTO) 3.75 MIL/uL (4.00-5.50); RED CELL DISTRIBUTION WIDTH 15.1 % (11.0-15.5); WHITE BLOOD COUNT (AUTO) 5.8 K/uL (4.8-10.8)
[2020-09-30 12:05] LABS: ALBUMIN 3.3 g/dL (3.5-5.0); BILIRUBIN,TOTAL 0.3 mg/dL (0.2-1.0); CREATININE 0.9 mg/dL (0.5-1.5); POTASSIUM 3.6 mmol/L (3.5-5.1); TOTAL PROTEIN, SERUM 7.6 g/dL (6.0-8.3)
[2020-09-30 12:24] LABS: INR 1.01 (0.85-1.15)
[2020-10-01 08:14] LABS: HEPATITIS A ANTIBODY IGM Negative (Negative); HEPATITIS B CORE IGM Negative (Negative); HEPATITIS Bs ANTIGEN SCREEN P Negative (Negative)
[2020-10-01 13:13] LABS: ALPHA-1-ANTITRYPSIN 163 mg/dL (100-188)
== END | disposition home or self-care (01) ==
LOC: LAB 10:52
PROVIDERS: ATTEND Internal Medicine Gastroenterology
DX: R94.5 Abnormal results of liver function studies (principal)
CPT/HCPCS: 36415; 80053; 80074; 82103; 82390; 82784; 83516; 85025; 85610; 86038; 86215; 86235; 86706; 86709

== ENCOUNTER 2021-02-28 14:47 | Emergency (ER) | payer MEDICAID ==
[~2021-02-28] VITALS: Ht 157.5 cm; Wt 124.7 kg
[2021-02-28 15:09] LABS: APPEARANCE,URINE Cloudy (CLEAR); BILIRUBIN,URINE Small (NEGATIVE); COLOR,URINE Dark Yellow (YELLOW); GLUCOSE, URINE (UA) Negative (NEGATIVE); KETONES,URINE Trace mg/dL (NEGATIVE); LEUKOCYTE ESTERASE ,URINE Moderate (NEGATIVE); NITRATE,URINE Negative (NEGATIVE); OCCULT BLOOD,URINE Negative (NEGATIVE); PH,URINE 5.5 (5.0-8.0); PROTEIN,URINE POS 1+ mg/dL (NEGATIVE)
[2021-02-28 15:23] LABS: BACTERIA,URINE Few /HPF (None Seen); RBC,URINE 0-1 /HPF (0-1); TRICHOMONAS,URINE Few /LPF (None Seen)
[2021-02-28 15:24] LABS: COARSE GRANULAR CASTS,URINE 0-2 /LPF (None Seen); HYALINE CASTS, URINE 0-1 /LPF (0-1 /LPF); MUCUS,URINE Moderate LPF (None Seen)
[2021-02-28] MEDS ORDERED: METR375C2 PO (18:14)
[2021-02-28] MEDS ORDERED: CEPH500B PO (18:14)
[2021-02-28] MEDS ORDERED: ALBU8.5H8 IH (18:23)
[2021-02-28 18:30] VITALS: BP 127/72
[2021-02-28] MEDS ORDERED: ACETAMINOPHEN WITH CODEINE 1 TAB TAB PO ONE (18:30)
[2021-02-28] MEDS ORDERED: CEFTRIAXONE 1G VIAL IM ONE (18:30)
[2021-02-28] MEDS ORDERED: ALBUTEROL INHALER 90MCG/INH IH PRN (18:30)
[2021-02-28] MEDS: METRONIDAZOLE 500 MG TABLET PO SCH ×2 (18:38→18:44)
== END 2021-02-28 18:46 | disposition home or self-care (01) ==
LOC: EDH 14:47
DX: N39.0 Urinary tract infection, site not specified (principal); A59.9 Trichomoniasis, unspecified; J02.9 Acute pharyngitis, unspecified; Z20.822 Contact with and (suspected) exposure to COVID-19; F32.A Depression, unspecified; F41.9 Anxiety disorder, unspecified; I10 Essential (primary) hypertension; J45.909 Unspecified asthma, uncomplicated; E66.9 Obesity, unspecified; Z79.51 Long term (current) use of inhaled steroids; Z79.52 Long term (current) use of systemic steroids; Z68.43 Body mass index [BMI] 50.0-59.9, adult
CPT/HCPCS: 71045; 81001; 87088; 87426; 87880; 96372; 99284; J0696

== ENCOUNTER 2021-10-31 15:07 | Inpatient (IN) | payer MEDICAID ==
[~2021-10-31] VITALS: Ht 157.5 cm; Wt 120.6 kg
[~2021-10-31 15:07] MED LIST changes: +ALBU18HF7 IH; +AUD IH; +CEPH500B PO; +METR375C2 PO; +PRED50TA2 PO
[2021-10-31] MEDS ORDERED: IPRATROPIUM/ALBUTEROL SULFATE 3 ML SOLUTION IH ONE ×5 (15:25→18:00)
[2021-10-31] MEDS ORDERED: AZITHROMYCIN 250 MG TABLET PO ONE (17:00)
[2021-10-31] MEDS ORDERED: SOLU-MEDROL 125MG VIAL IVP ONE (17:00)
[2021-10-31] MEDS ORDERED: 0.9%NACL 1000ML 1,000 ML IV ONE (17:00)
[2021-10-31] MEDS ORDERED: CEFTRIAXONE 1G VIAL IVP ONE (17:00)
[2021-10-31 17:10] LABS: BASOPHILS % (AUTO) 0.3 % (0.0-5.0); EOSINOPHILS % (AUTO) 2.4 % (0.0-8.0); HEMATOCRIT 35.6 % (36-48); LYMPHOCYTES % (AUTO) 11.8 % (21.0-51.0); MEAN CORPUSCULAR HEMOGLOBIN 29.2 pg (27.0-33.0); NEUTROPHILS % (AUTO) 81.1 % (40.0-77.0); PLATELET COUNT (AUTO) 293 K/uL (130-400); RED BLOOD CELL COUNT(AUTO) 4.14 MIL/uL (4.00-5.50); RED CELL DISTRIBUTION WIDTH 13.9 % (11.0-15.5); WHITE BLOOD COUNT (AUTO) 11.4 K/uL (4.8-10.8)
[2021-10-31 17:31] LABS: ALBUMIN 3.3 g/dL (3.5-5.0); CREATININE 0.9 mg/dL (0.5-1.5); TOTAL PROTEIN, SERUM 8.1 g/dL (6.0-8.3)
[2021-10-31 17:32] LABS: APPEARANCE,URINE CLOUDY (CLEAR); BILIRUBIN,URINE 0.5 mg/dL (NEGATIVE); COLOR,URINE YELLOW (YELLOW); GLUCOSE, URINE (UA) NEGATIVE (NEGATIVE); KETONES,URINE NEGATIVE (NEGATIVE); LEUKOCYTE ESTERASE ,URINE NEGATIVE Leu/uL (NEGATIVE); NITRATE,URINE NEGATIVE (NEGATIVE); OCCULT BLOOD,URINE NEGATIVE (NEGATIVE); PROTEIN,URINE 70 mg/dL (NEGATIVE); UROBILINOGEN,URINE 3 mg/dL (0.2-1.0)
[2021-10-31 17:38] LABS: BACTERIA,URINE FEW /HPF (None Seen); MUCUS,URINE MOD LPF (None Seen); SQUAMOUS EPITHELIAL CELL,UR FEW /HPF (0-2)
[2021-10-31] MEDS ORDERED: POTASSIUM BICARB/CIT AC 25 MEQ TABLET.EFF PO ONE (18:00)
[2021-10-31] MEDS ORDERED: BENZONATATE 100 MG CAPSULE PO SCH (18:00)
[2021-10-31] MEDS: MAGNESIUM 2GM PREMIX 50ML 50 ML IV SCH (18:02)
[2021-10-31] MEDS ORDERED: MONTELUKAST SODIUM 10 MG TAB PO SCH (20:00)
[2021-10-31] MEDS ORDERED: CLONIDINE HCL 0.1 MG TABLET PO PRN (20:00)
[2021-10-31] MEDS ORDERED: ACETAMINOPHEN 325 MG TAB PO PRN (20:00)
[2021-10-31] MEDS: IPRATROPIUM/ALBUTEROL SULFATE 3 ML SOLUTION IH SCH (21:03)
[2021-10-31] MEDS: FAMOTIDINE 20MG TAB PO SCH (21:21)
[2021-10-31] MEDS: DOXYCYCLINE 100MG+NS 250ML 250 ML IV SCH (21:21)
[2021-10-31] MEDS: SOLU-MEDROL 40MG VIAL IVP SCH (21:21)
[2021-10-31] MEDS: CEFTRIAXONE 1G VIAL IV SCH (21:21)
[2021-10-31 23:25] VITALS: BP 129/67
[2021-10-31] MEDS: HYDROCODONE/ACETAMINOPHEN 5/325 MG TAB PO PRN (23:39)
[2021-11-01] MEDS: IPRATROPIUM/ALBUTEROL SULFATE 3 ML SOLUTION IH SCH ×6 (01:36→22:54)
[2021-11-01 04:00] VITALS: BP 137/63
[2021-11-01] MEDS: SOLU-MEDROL 40MG VIAL IVP SCH ×3 (04:20→20:15)
[2021-11-01] MEDS: GUAIFENESIN-CODEINE 5 ML SYRUP PO PRN ×3 (04:23→18:40)
[2021-11-01 05:32] LABS: BASOPHILS % (AUTO) 0.1 % (0.0-5.0); HEMATOCRIT 31.8 % (36-48); LYMPHOCYTES % (AUTO) 9.5 % (21.0-51.0); MEAN CORPUSCULAR VOLUME 85.3 fL (79-99); MONOCYTES % (AUTO) 2.2 % (3.0-13.0); NEUTROPHILS % (AUTO) 87.5 % (40.0-77.0); PLATELET COUNT (AUTO) 271 K/uL (130-400); RED BLOOD CELL COUNT(AUTO) 3.73 MIL/uL (4.00-5.50); RED CELL DISTRIBUTION WIDTH 13.7 % (11.0-15.5); WHITE BLOOD COUNT (AUTO) 7.6 K/uL (4.8-10.8)
[2021-11-01 05:54] LABS: CREATININE 0.7 mg/dL (0.5-1.5); MAGNESIUM 1.9 mg/dL (1.80-2.40); PHOSPHORUS 1.9 mg/dL (2.5-4.9); POTASSIUM 3.4 mmol/L (3.5-5.1)
[2021-11-01] MEDS ORDERED: KCL 20 MEQ ERTAB PO PRN (07:00)
[2021-11-01] MEDS ORDERED: LIDOCAINE HCL-MPF 1% 2ML VIAL IV PRN (07:00)
[2021-11-01] MEDS ORDERED: POTASSIUM CHLORIDE 20MEQ/100ML 100 ML IV PRN (07:00)
[2021-11-01 08:00] VITALS: BP 158/75
[2021-11-01] MEDS ORDERED: HYDRALAZINE 20MG/ML VIAL IV PRN (09:30)
[2021-11-01] MEDS: FAMOTIDINE 20MG TAB PO SCH ×2 (09:38→20:15)
[2021-11-01] MEDS: ENOXAPARIN SODIUM 40 MG/0.4 ML SYRINGE SQ SCH (09:38)
[2021-11-01] MEDS: MONTELUKAST SODIUM 10 MG TAB PO SCH (09:38)
[2021-11-01] MEDS: CETIRIZINE HCL 5 MG TABLET PO SCH ×2 (09:40→20:15)
[2021-11-01] MEDS: AMLODIPINE 5 MG TAB PO SCH (09:40)
[2021-11-01] MEDS: DOXYCYCLINE 100MG+NS 250ML 250 ML IV SCH ×2 (09:40→21:09)
[2021-11-01] MEDS ORDERED: 0.9% NACL 250ML 250 ML ONE ×2 (09:45→21:01)
[2021-11-01] MEDS: ACETAMINOPHEN 325 MG TAB PO PRN ×2 (10:09→18:40)
[2021-11-01] MEDS ORDERED: LACTATED RINGERS 1000ML IV SCH (11:00)
[2021-11-01] MEDS ORDERED: LACTATED RINGERS 1000ML 1,000 ML IV ONE (11:06)
[2021-11-01 12:00] VITALS: BP 140/75
[2021-11-01] MEDS: LACTATED RINGERS 1000ML 1,000 ML IV SCH (13:12)
[2021-11-01 16:00] VITALS: BP 128/70
[2021-11-01] MEDS: POTASSIUM CHLORIDE 10% ELIXIR 20 MEQ/15 ML UDCUP PO PRN ×2 (16:18→18:41)
[2021-11-01 20:00] VITALS: BP 135/74
[2021-11-01] MEDS: CEFTRIAXONE 1G VIAL IV SCH (20:15)
[2021-11-02] VITALS (7 sets, daily range): BP systolic 138–164; BP diastolic 73–90
[2021-11-02] MEDS: IPRATROPIUM/ALBUTEROL SULFATE 3 ML SOLUTION IH SCH ×6 (01:36→22:25)
[2021-11-02] MEDS: LACTATED RINGERS 1000ML 1,000 ML IV SCH ×3 (03:20→23:11)
[2021-11-02 04:24] LABS: BASOPHILS % (AUTO) 0.1 % (0.0-5.0); HEMATOCRIT 30.7 % (36-48); MEAN CORPUSCULAR HEMOGLOBIN 28.8 pg (27.0-33.0); MEAN CORPUSCULAR HGB CONC 33.2 g/dL (32.0-36.0); MEAN CORPUSCULAR VOLUME 86.7 fL (79-99); MONOCYTES % (AUTO) 2.9 % (3.0-13.0); NEUTROPHILS % (AUTO) 86.4 % (40.0-77.0); PLATELET COUNT (AUTO) 252 K/uL (130-400); RED BLOOD CELL COUNT(AUTO) 3.54 MIL/uL (4.00-5.50); RED CELL DISTRIBUTION WIDTH 14.1 % (11.0-15.5); WHITE BLOOD COUNT (AUTO) 9.3 K/uL (4.8-10.8)
[2021-11-02] MEDS: SOLU-MEDROL 40MG VIAL IVP SCH ×3 (04:27→19:51)
[2021-11-02] MEDS: ACETAMINOPHEN 325 MG TAB PO PRN (04:40)
[2021-11-02] MEDS: GUAIFENESIN-CODEINE 5 ML SYRUP PO PRN ×3 (04:41→18:07)
[2021-11-02 04:45] LABS: CREATININE 0.7 mg/dL (0.5-1.5); MAGNESIUM 1.8 mg/dL (1.80-2.40); PHOSPHORUS 3.5 mg/dL (2.5-4.9); POTASSIUM 4.2 mmol/L (3.5-5.1)
[2021-11-02] MEDS: DOXYCYCLINE 100MG+NS 250ML 250 ML IV SCH ×2 (09:49→19:51)
[2021-11-02] MEDS: ENOXAPARIN SODIUM 40 MG/0.4 ML SYRINGE SQ SCH (09:50)
[2021-11-02] MEDS: FAMOTIDINE 20MG TAB PO SCH ×2 (09:50→19:51)
[2021-11-02] MEDS: CETIRIZINE HCL 5 MG TABLET PO SCH ×2 (09:50→19:51)
[2021-11-02] MEDS: AMLODIPINE 5 MG TAB PO SCH (09:50)
[2021-11-02] MEDS: MONTELUKAST SODIUM 10 MG TAB PO SCH (09:50)
[2021-11-02] MEDS: HYDROCODONE/ACETAMINOPHEN 5/325 MG TAB PO PRN ×2 (10:04→16:25)
[2021-11-02] MEDS: BENZONATATE 100 MG CAPSULE PO PRN ×2 (11:05→18:07)
[2021-11-02] MEDS: CEFTRIAXONE 1G VIAL IV SCH (19:51)
[2021-11-02] MEDS ORDERED: AMLO-257 PO (21:17)
[2021-11-02] MEDS ORDERED: CETI10TA57 PO (21:17)
[2021-11-02] MEDS ORDERED: ESCI5TAB16 PO (21:17)
[2021-11-02] MEDS ORDERED: LISI20TA24 PO (21:17)
[2021-11-02] MEDS ORDERED: OMEP40CA21 PO (21:17)
[2021-11-02] MEDS ORDERED: DICY10 PO (21:17)
[2021-11-02] MEDS: MAGNESIUM 2GM PREMIX 50ML 50 ML IV SCH (23:42)
[2021-11-03] MEDS: ACETAMINOPHEN 325 MG TAB PO PRN (01:28)
[2021-11-03] MEDS: BENZONATATE 100 MG CAPSULE PO PRN ×2 (01:28→08:33)
[2021-11-03] MEDS: IPRATROPIUM/ALBUTEROL SULFATE 3 ML SOLUTION IH SCH ×4 (01:30→13:25)
[2021-11-03] MEDS: GUAIFENESIN-CODEINE 5 ML SYRUP PO PRN ×3 (02:54→15:09)
[2021-11-03] MEDS: SOLU-MEDROL 40MG VIAL IVP SCH ×2 (02:54→15:10)
[2021-11-03] MEDS: LACTATED RINGERS 1000ML 1,000 ML IV SCH (02:54)
[2021-11-03 03:57] VITALS: BP 141/81
[2021-11-03 05:15] LABS: CREATININE 0.8 mg/dL (0.5-1.5); POTASSIUM 4.4 mmol/L (3.5-5.1)
[2021-11-03 05:17] LABS: BASOPHILS % (AUTO) 0.1 % (0.0-5.0); HEMATOCRIT 30.7 % (36-48); LYMPHOCYTES % (AUTO) 14.3 % (21.0-51.0); MEAN CORPUSCULAR HEMOGLOBIN 29.3 pg (27.0-33.0); MEAN CORPUSCULAR HGB CONC 33.2 g/dL (32.0-36.0); MEAN CORPUSCULAR VOLUME 88.2 fL (79-99); MONOCYTES % (AUTO) 3.1 % (3.0-13.0); NEUTROPHILS % (AUTO) 80.9 % (40.0-77.0); PLATELET COUNT (AUTO) 247 K/uL (130-400); RED BLOOD CELL COUNT(AUTO) 3.48 MIL/uL (4.00-5.50); RED CELL DISTRIBUTION WIDTH 14.4 % (11.0-15.5); WHITE BLOOD COUNT (AUTO) 8.1 K/uL (4.8-10.8)
[2021-11-03 07:16] VITALS: BP 174/91
[2021-11-03] MEDS ORDERED: 0.9% NACL 250ML 250 ML ONE (08:26)
[2021-11-03] MEDS: CETIRIZINE HCL 5 MG TABLET PO SCH (08:33)
[2021-11-03] MEDS: MONTELUKAST SODIUM 10 MG TAB PO SCH (08:33)
[2021-11-03] MEDS: AMLODIPINE 5 MG TAB PO SCH (08:33)
[2021-11-03] MEDS: DOXYCYCLINE 100MG+NS 250ML 250 ML IV SCH (08:33)
[2021-11-03] MEDS: FAMOTIDINE 20MG TAB PO SCH (08:33)
[2021-11-03] MEDS: HYDROCODONE/ACETAMINOPHEN 5/325 MG TAB PO PRN (08:34)
[2021-11-03] MEDS: ENOXAPARIN SODIUM 40 MG/0.4 ML SYRINGE SQ SCH (08:35)
[2021-11-03 12:15] VITALS: BP 162/86
[2021-11-03] MEDS ORDERED: MONT10TA21 PO (12:18)
[2021-11-03] MEDS ORDERED: PRED-284 PO (12:18)
[2021-11-03] MEDS ORDERED: FLUT1DIS5 IH (12:18)
[2021-11-04] MEDS ORDERED: AMLODIPINE 5 MG TAB PO SCH (09:00)
== END 2021-11-03 16:30 | disposition home or self-care (01) | DRG 139 ==
LOC: EDH 15:07 → EDHIP 15:08 → 3AH 23:25
PROVIDERS: ADMIT Internal Medicine; ATTEND Internal Medicine
PROC: 5A09357 Assistance with Respiratory Ventilation, Less than 24 Consecutive Hours, Continuous Positive Airway Pressure (ICD-10-PCS; principal; 2021-11-02)
PROC: 5A09357 Assistance with Respiratory Ventilation, Less than 24 Consecutive Hours, Continuous Positive Airway Pressure (ICD-10-PCS; 2021-11-03)
DX: J18.9 Pneumonia, unspecified organism (principal); J45.901 Unspecified asthma with (acute) exacerbation; Z20.822 Contact with and (suspected) exposure to COVID-19; E87.6 Hypokalemia; F32.A Depression, unspecified; F41.9 Anxiety disorder, unspecified; E66.9 Obesity, unspecified; I10 Essential (primary) hypertension; Z56.0 Unemployment, unspecified; Z81.8 Family history of other mental and behavioral disorders; Z82.0 Family history of epilepsy and other diseases of the nervous system; Z82.3 Family history of stroke; Z82.49 Family history of ischemic heart disease and other diseases of the circulatory system; Z82.5 Family history of asthma and other chronic lower respiratory diseases; Z83.3 Family history of diabetes mellitus; Z90.710 Acquired absence of both cervix and uterus; Z68.42 Body mass index [BMI] 45.0-49.9, adult
CPT/HCPCS: 36415; 71045; 80048; 80053; 81001; 83605; 83735; 84100; 84145; 85025; 86606; 86612; 87040; 87071; 87205; 87635; 87804; 87880; 94640; 94660; 94664; 94760; A4606; C9803; G0378; J0696; J1650; J2920; J2930; J3475; J3490; J7050; J7120

== ENCOUNTER 2021-11-21 18:13 | Emergency (ER) | payer MEDICAID ==
[~2021-11-21] VITALS: Ht 157.5 cm; Wt 119.7 kg
[~2021-11-21 18:13] MED LIST changes: -ADV250 IH; -ALBU8.5H8 IH; +AMLO-257 PO; -AZIT250T9 PO; -BENZ-17 PO; -CEPH500B PO; +CETI10TA57 PO; +DICY10 PO; -FERR324T4 PO; +FLUT1DIS5 IH; -HYD25 PO; +LISI20TA24 PO; -METR375C2 PO; +MONT10TA21 PO; +OMEP40CA21 PO; +PRED-284 PO; -PRED20TA3 PO; -PRED50TA2 PO; -SERT50TA PO
[2021-11-21 18:17] VITALS: BP 131/75
[2021-11-21 19:36] LABS: BASOPHILS % (AUTO) 0.2 % (0.0-5.0); EOSINOPHILS % (AUTO) 1.4 % (0.0-8.0); LYMPHOCYTES % (AUTO) 20.4 % (21.0-51.0); MEAN CORPUSCULAR HEMOGLOBIN 29.1 pg (27.0-33.0); MEAN CORPUSCULAR HGB CONC 33.3 g/dL (32.0-36.0); MEAN CORPUSCULAR VOLUME 87.4 fL (79-99); MONOCYTES % (AUTO) 5.1 % (3.0-13.0); NEUTROPHILS % (AUTO) 72.1 % (40.0-77.0); PLATELET COUNT (AUTO) 296 K/uL (130-400); RED BLOOD CELL COUNT(AUTO) 4.12 MIL/uL (4.00-5.50); RED CELL DISTRIBUTION WIDTH 14.1 % (11.0-15.5)
[2021-11-21 19:51] LABS: CREATININE 0.9 mg/dL (0.5-1.5); POTASSIUM 3.8 mmol/L (3.5-5.1)
[2021-11-21 19:55] LABS: ALBUMIN 3.6 g/dL (3.5-5.0); TOTAL PROTEIN, SERUM 7.8 g/dL (6.0-8.3)
[2021-11-21] MEDS ORDERED: 0.9%NACL 1000ML 1,000 ML IV ONE (20:00)
[2021-11-21] MEDS ORDERED: KETOROLAC 15MG/ML VIAL (15MG/ML) IV ONE (20:00)
[2021-11-21] MEDS ORDERED: PROCHLORPERAZINE 10MG/2ML INJ IV ONE (20:00)
[2021-11-21] MEDS ORDERED: DiphenhydrAMINE HCL 50 MG/ML VIAL IV ONE (20:00)
[2021-11-21 20:16] LABS: APPEARANCE,URINE CLEAR (CLEAR); BILIRUBIN,URINE NEGATIVE (NEGATIVE); COLOR,URINE LIGHT-YELLOW (YELLOW); GLUCOSE, URINE (UA) NEGATIVE (NEGATIVE); KETONES,URINE NEGATIVE (NEGATIVE); LEUKOCYTE ESTERASE ,URINE NEGATIVE Leu/uL (NEGATIVE); NITRATE,URINE NEGATIVE (NEGATIVE); OCCULT BLOOD,URINE NEGATIVE (NEGATIVE); PROTEIN,URINE NEGATIVE (NEGATIVE); UROBILINOGEN,URINE 0.2 mg/dL (0.2-1.0)
[2021-11-21 20:19] LABS: HCG,QUALITATIVE URINE NEGATIVE (NEGATIVE)
[2021-11-21] MEDS ORDERED: DEXAMETHASONE SOD PHOSPHATE 4 MG/ML 1ML VIAL IVP ONE (21:30)
== END 2021-11-21 22:10 | disposition home or self-care (01) ==
LOC: EDH 18:13
DX: R51.9 Headache, unspecified (principal); R42 Dizziness and giddiness; R11.0 Nausea; I10 Essential (primary) hypertension; J45.909 Unspecified asthma, uncomplicated; E66.9 Obesity, unspecified; Z79.1 Long term (current) use of non-steroidal anti-inflammatories (NSAID); Z79.51 Long term (current) use of inhaled steroids; Z68.42 Body mass index [BMI] 45.0-49.9, adult
CPT/HCPCS: 99284; 96374; 96375; 96361; 80053; 85025; 81003; 81025; 36415; J1100; J1200; J0780; J1885

== ENCOUNTER 2021-12-05 09:42 | Inpatient (IN) | payer MEDICAID ==
[~2021-12-05] VITALS: Ht 157.5 cm; Wt 121.7 kg
[2021-12-05] MEDS ORDERED: MAGNESIUM 2GM PREMIX 50ML 50 ML IV STA (09:49)
[2021-12-05] MEDS ORDERED: MAGNESIUM 2GM PREMIX 50ML 50 ML IV SCH (10:00)
[2021-12-05] MEDS ORDERED: SOLU-MEDROL 125MG VIAL IM ONE (10:00)
[2021-12-05] MEDS ORDERED: LACTATED RINGERS 1000ML 1,000 ML IV ONE (10:00)
[2021-12-05] MEDS ORDERED: CEFTRIAXONE 1G VIAL IV ONE (10:00)
[2021-12-05] MEDS ORDERED: IPRATROPIUM/ALBUTEROL SULFATE 3 ML SOLUTION IH ONE (10:00)
[2021-12-05] MEDS ORDERED: ALBUTEROL 0.083% 2.5 MG/3 ML INH IH ONE (10:00)
[2021-12-05] MEDS ORDERED: AZITHROMYCIN 500MG+NS 250ML 250 ML IV SCH (10:00)
[2021-12-05 10:02] LABS: BASOPHILS % (AUTO) 0.3 % (0.0-5.0); EOSINOPHILS % (AUTO) 0.3 % (0.0-8.0); HEMATOCRIT 33.7 % (36-48); LYMPHOCYTES % (AUTO) 12.2 % (21.0-51.0); MEAN CORPUSCULAR HEMOGLOBIN 29.3 pg (27.0-33.0); MEAN CORPUSCULAR HGB CONC 33.8 g/dL (32.0-36.0); MEAN CORPUSCULAR VOLUME 86.6 fL (79-99); MONOCYTES % (AUTO) 5.2 % (3.0-13.0); NEUTROPHILS % (AUTO) 81.1 % (40.0-77.0); PLATELET COUNT (AUTO) 277 K/uL (130-400); RED BLOOD CELL COUNT(AUTO) 3.89 MIL/uL (4.00-5.50); RED CELL DISTRIBUTION WIDTH 13.7 % (11.0-15.5)
[2021-12-05 10:10] LABS: CREATININE 0.8 mg/dL (0.5-1.5); POTASSIUM 3.2 mmol/L (3.5-5.1)
[2021-12-05 10:17] LABS: ALBUMIN 3.6 g/dL (3.5-5.0); TOTAL PROTEIN, SERUM 7.7 g/dL (6.0-8.3)
[2021-12-05 11:55] LABS: APPEARANCE,URINE CLOUDY (CLEAR); BILIRUBIN,URINE NEGATIVE (NEGATIVE); COLOR,URINE COLORLESS (YELLOW); GLUCOSE, URINE (UA) NEGATIVE (NEGATIVE); KETONES,URINE NEGATIVE (NEGATIVE); LEUKOCYTE ESTERASE ,URINE NEGATIVE Leu/uL (NEGATIVE); NITRATE,URINE NEGATIVE (NEGATIVE); OCCULT BLOOD,URINE NEGATIVE (NEGATIVE); PH,URINE 6.5 (5.0-8.0); PROTEIN,URINE NEGATIVE (NEGATIVE); UROBILINOGEN,URINE 0.2 mg/dL (0.2-1.0)
[2021-12-05 11:58] LABS: BACTERIA,URINE MANY /HPF (None Seen); RBC,URINE 0-1 /HPF (0-1); SQUAMOUS EPITHELIAL CELL,UR MOD /HPF (0-2)
[2021-12-05] MEDS: IPRATROPIUM/ALBUTEROL SULFATE 3 ML SOLUTION IH SCH ×5 (12:23→23:47)
[2021-12-05] MEDS ORDERED: ALBUTEROL 0.083% 2.5 MG/3 ML INH IH SCH (12:37)
[2021-12-05 12:45] LABS: HEMOGLOBIN A1C 5.7 % (4.0-6.0)
[2021-12-05 12:54] LABS: MAGNESIUM 1.7 mg/dL (1.80-2.40); THYROID STIMULATING HORMONE 0.52 uIU/mL (0.36-3.74)
[2021-12-05 12:57] LABS: ABG BASE EXCESS -3.1 mmol/L (-2.0-3.0); ABG HCO3 19.5 mmol/L (21.0-28.0); ABG OXYGEN SATURATION 99.1 % (95.0-99.0); ABG PCO2 28 mmHg (32-45)
[2021-12-05] MEDS ORDERED: POTASSIUM CHLORIDE 20MEQ/100ML 100 ML IV PRN (13:30)
[2021-12-05] MEDS ORDERED: PANTOPRAZOLE 40 MG TAB DR PO PRN (16:00)
[2021-12-05] MEDS: SOLU-MEDROL 40MG VIAL IVP SCH ×2 (16:22→23:41)
[2021-12-05] MEDS: INSULIN HUMULIN R 100 UNIT/ML 3ML SQ SCH ×2 (16:27→20:54)
[2021-12-05 18:31] VITALS: BP 144/87
[2021-12-05 19:01] VITALS: BP 165/88
[2021-12-05 20:01] VITALS: BP 160/99
[2021-12-05] MEDS: BUDESONIDE 0.5 MG/2 ML INH IH SCH (20:47)
[2021-12-05 21:01] VITALS: BP 154/92
[2021-12-05] MEDS ORDERED: FUROSEMIDE 20MG VIAL IV SCH (21:30)
[2021-12-05 22:01] VITALS: BP 128/73
[2021-12-05 23:01] VITALS: BP 136/80
[2021-12-06] VITALS (12 sets, daily range): BP systolic 127–165; BP diastolic 59–96
[2021-12-06] MEDS: IPRATROPIUM/ALBUTEROL SULFATE 3 ML SOLUTION IH SCH ×6 (02:56→22:54)
[2021-12-06 03:41] LABS: HEMATOCRIT 34.3 % (36-48); LYMPHOCYTES % (AUTO) 12.5 % (21.0-51.0); MEAN CORPUSCULAR HEMOGLOBIN 28.5 pg (27.0-33.0); MEAN CORPUSCULAR HGB CONC 33.2 g/dL (32.0-36.0); MEAN CORPUSCULAR VOLUME 85.8 fL (79-99); MONOCYTES % (AUTO) 2.6 % (3.0-13.0); NEUTROPHILS % (AUTO) 84.3 % (40.0-77.0); PLATELET COUNT (AUTO) 281 K/uL (130-400); RED CELL DISTRIBUTION WIDTH 13.7 % (11.0-15.5); WHITE BLOOD COUNT (AUTO) 5.3 K/uL (4.8-10.8)
[2021-12-06 03:50] LABS: CREATININE 0.7 mg/dL (0.5-1.5); MAGNESIUM 2.1 mg/dL (1.80-2.40); POTASSIUM 3.8 mmol/L (3.5-5.1)
[2021-12-06 03:52] LABS: HEMOGLOBIN A1C 5.6 % (4.0-6.0)
[2021-12-06] MEDS: INSULIN HUMULIN R 100 UNIT/ML 3ML SQ SCH ×4 (06:00→20:10)
[2021-12-06] MEDS: SOLU-MEDROL 40MG VIAL IVP SCH ×3 (06:02→23:01)
[2021-12-06] MEDS: BUDESONIDE 0.5 MG/2 ML INH IH SCH ×2 (06:45→19:34)
[2021-12-06] MEDS: MONTELUKAST SODIUM 10 MG TAB PO SCH (08:38)
[2021-12-06] MEDS: CEFTRIAXONE 1G VIAL IVP SCH (08:38)
[2021-12-06] MEDS: AMLODIPINE 5 MG TAB PO SCH (08:38)
[2021-12-06] MEDS: ENOXAPARIN SODIUM 40 MG/0.4 ML SYRINGE SQ SCH (08:39)
[2021-12-06] MEDS ORDERED: HYDROXYZINE 25 MG TABLET PO PRN (09:00)
[2021-12-06] MEDS: LISINOPRIL 20 MG TABLET PO SCH (09:59)
[2021-12-06] MEDS ORDERED: PANTOPRAZOLE 40 MG TAB DR PO SCH (16:00)
[2021-12-07] VITALS: BP 138/83
[2021-12-07] MEDS: IPRATROPIUM/ALBUTEROL SULFATE 3 ML SOLUTION IH SCH ×6 (02:25→23:14)
[2021-12-07 04:00] VITALS: BP 140/85
[2021-12-07 05:13] LABS: BASOPHILS % (AUTO) 0.1 % (0.0-5.0); HEMATOCRIT 34.7 % (36-48); LYMPHOCYTES % (AUTO) 12.7 % (21.0-51.0); MEAN CORPUSCULAR HEMOGLOBIN 28.6 pg (27.0-33.0); MEAN CORPUSCULAR HGB CONC 32.9 g/dL (32.0-36.0); NEUTROPHILS % (AUTO) 84.4 % (40.0-77.0); PLATELET COUNT (AUTO) 279 K/uL (130-400); RED BLOOD CELL COUNT(AUTO) 3.99 MIL/uL (4.00-5.50); RED CELL DISTRIBUTION WIDTH 13.6 % (11.0-15.5); WHITE BLOOD COUNT (AUTO) 8.4 K/uL (4.8-10.8)
[2021-12-07 05:28] LABS: CREATININE 0.8 mg/dL (0.5-1.5); PHOSPHORUS 4.5 mg/dL (2.5-4.9); POTASSIUM 4.1 mmol/L (3.5-5.1)
[2021-12-07] MEDS: INSULIN HUMULIN R 100 UNIT/ML 3ML SQ SCH ×4 (05:47→20:05)
[2021-12-07] MEDS: SOLU-MEDROL 40MG VIAL IVP SCH ×3 (06:08→23:08)
[2021-12-07] MEDS: BUDESONIDE 0.5 MG/2 ML INH IH SCH ×2 (07:01→18:36)
[2021-12-07 08:00] VITALS: BP 142/78
[2021-12-07] MEDS: AMLODIPINE 5 MG TAB PO SCH (08:44)
[2021-12-07] MEDS: MONTELUKAST SODIUM 10 MG TAB PO SCH (08:44)
[2021-12-07] MEDS: CEFTRIAXONE 1G VIAL IVP SCH (08:44)
[2021-12-07] MEDS: ENOXAPARIN SODIUM 40 MG/0.4 ML SYRINGE SQ SCH (08:45)
[2021-12-07] MEDS: LISINOPRIL 20 MG TABLET PO SCH (08:46)
[2021-12-07 12:00] VITALS: BP 162/98
[2021-12-07 16:00] VITALS: BP 128/74
[2021-12-07] MEDS ORDERED: HYDRALAZINE HCL 10 MG TABLET ONE (20:40)
[2021-12-07] MEDS ORDERED: HYDRALAZINE HCL 10 MG TABLET PO PRN (21:00)
[2021-12-07 21:20] VITALS: BP 161/89
[2021-12-08] VITALS: BP 133/83
[2021-12-08] MEDS: IPRATROPIUM/ALBUTEROL SULFATE 3 ML SOLUTION IH SCH ×3 (01:19→10:24)
[2021-12-08 04:00] VITALS: BP 139/76
[2021-12-08] MEDS: INSULIN HUMULIN R 100 UNIT/ML 3ML SQ SCH ×2 (06:00→11:57)
[2021-12-08] MEDS: SOLU-MEDROL 40MG VIAL IVP SCH (06:08)
[2021-12-08] MEDS: BUDESONIDE 0.5 MG/2 ML INH IH SCH (06:56)
[2021-12-08 08:00] VITALS: BP 149/85
[2021-12-08 08:39] LABS: MEAN CORPUSCULAR HEMOGLOBIN 28.6 pg (27.0-33.0); MEAN CORPUSCULAR HGB CONC 33.2 g/dL (32.0-36.0); RED BLOOD CELL COUNT(AUTO) 4.3 MIL/uL (4.00-5.50); RED CELL DISTRIBUTION WIDTH 13.4 % (11.0-15.5); WHITE BLOOD COUNT (AUTO) 10.3 K/uL (4.8-10.8)
[2021-12-08 08:45] LABS: CREATININE 0.9 mg/dL (0.5-1.5); POTASSIUM 4.6 mmol/L (3.5-5.1)
[2021-12-08] MEDS ORDERED: SOLU-MEDROL 125MG VIAL IVP SCH (09:00)
[2021-12-08] MEDS: MONTELUKAST SODIUM 10 MG TAB PO SCH (09:27)
[2021-12-08] MEDS: AMLODIPINE 5 MG TAB PO SCH (09:27)
[2021-12-08] MEDS: CEFTRIAXONE 1G VIAL IVP SCH (09:27)
[2021-12-08] MEDS: LISINOPRIL 20 MG TABLET PO SCH (09:28)
[2021-12-08] MEDS: ENOXAPARIN SODIUM 40 MG/0.4 ML SYRINGE SQ SCH (09:28)
[2021-12-08 12:00] VITALS: BP 174/81
[2021-12-08] MEDS ORDERED: PRED20TA3 PO (13:11)
== END 2021-12-08 14:30 | disposition home or self-care (01) | DRG 133 ==
LOC: EDH 09:42 → EDHIP 09:43 → 2BH 17:37 → 3BH 12-06 10:56
PROVIDERS: ADMIT Internal Medicine; ATTEND Internal Medicine
PROC: 5A09357 Assistance with Respiratory Ventilation, Less than 24 Consecutive Hours, Continuous Positive Airway Pressure (ICD-10-PCS; principal; 2021-12-05)
DX: J96.01 Acute respiratory failure with hypoxia (principal); J45.901 Unspecified asthma with (acute) exacerbation; N39.0 Urinary tract infection, site not specified; G47.33 Obstructive sleep apnea (adult) (pediatric); Z20.822 Contact with and (suspected) exposure to COVID-19; I10 Essential (primary) hypertension; E66.01 Morbid (severe) obesity due to excess calories; K21.9 Gastro-esophageal reflux disease without esophagitis; Z79.899 Other long term (current) drug therapy; Z90.710 Acquired absence of both cervix and uterus; Z83.3 Family history of diabetes mellitus; Z82.5 Family history of asthma and other chronic lower respiratory diseases; Z82.49 Family history of ischemic heart disease and other diseases of the circulatory system; Z82.3 Family history of stroke; Z82.0 Family history of epilepsy and other diseases of the nervous system; Z81.8 Family history of other mental and behavioral disorders; Z68.42 Body mass index [BMI] 45.0-49.9, adult
CPT/HCPCS: 36415; 36600; 71045; 80048; 80053; 81001; 82435; 82785; 82803; 82947; 82948; 83036; 83605; 83735; 83880; 84100; 84132; 84145; 84295; 84443; 84484; 84703; 85018; 85025; 85027; 85378; 87040; 87635; 87804; 93005; 93306; 93356; 94640; 94660; 94664; 94760; C9803; G0378; J0456; J0696; J1650; J1940; J2920; J2930; J3475; J3480; J7120

== ENCOUNTER 2022-12-14 11:58 | Emergency (ER) | payer BC, MEDICAID ==
[~2022-12-14] VITALS: Ht 157.5 cm; Wt 122.5 kg
[~2022-12-14 11:58] MED LIST changes: -CETI10TA57 PO; -FLUT1DIS5 IH; +LEVO-70 PO; +METR-172 PO; -MONT10TA21 PO; -PRED-284 PO
[2022-12-14 13:04] LABS: BASOPHILS # (AUTO) 0.04 K/uL (0.00-0.20); BASOPHILS % (AUTO) 0.6 % (0.0-5.0); EOSINOPHILS # (AUTO) 0.49 K/uL (0.00-0.70); HEMATOCRIT 35.3 % (36-48); IMMATURE GRANULOCYTE ABSOLUTE 0.02 K/uL (0-1); LYMPHOCYTES # (AUTO) 1.3 K/uL (1.0-4.8); LYMPHOCYTES % (AUTO) 19.1 % (21.0-51.0); MEAN CORPUSCULAR HEMOGLOBIN 28.6 pg (27.0-33.0); MEAN CORPUSCULAR HGB CONC 33.7 g/dL (32.0-36.0); MEAN CORPUSCULAR VOLUME 84.9 fL (79-99); MONOCYTES # (AUTO) 0.3 K/uL (0.1-1.0); MONOCYTES % (AUTO) 4.8 % (3.0-13.0); NEUTROPHILS # (AUTO) 4.8 K/uL (1.8-7.7); NEUTROPHILS % (AUTO) 68.2 % (40.0-77.0); PLATELET COUNT (AUTO) 284 K/uL (130-400); RED BLOOD CELL COUNT(AUTO) 4.16 MIL/uL (4.00-5.50); RED CELL DISTRIBUTION WIDTH 14.3 % (11.0-15.5)
[2022-12-14 13:09] LABS: CREATININE 0.7 mg/dL (0.5-1.5); POTASSIUM 3.2 mmol/L (3.5-5.1)
[2022-12-14 13:13] LABS: ALBUMIN 3.2 g/dL (3.5-5.0); BILIRUBIN,TOTAL 0.4 mg/dL (0.2-1.0); TOTAL PROTEIN, SERUM 7.1 g/dL (6.0-8.3)
[2022-12-14 13:18] LABS: APPEARANCE,URINE CLEAR (CLEAR); BILIRUBIN,URINE NEGATIVE (NEGATIVE); COLOR,URINE LIGHT-YELLOW (YELLOW); GLUCOSE, URINE (UA) NEGATIVE (NEGATIVE); KETONES,URINE NEGATIVE (NEGATIVE); LEUKOCYTE ESTERASE ,URINE NEGATIVE Leu/uL (NEGATIVE); NITRATE,URINE NEGATIVE (NEGATIVE); OCCULT BLOOD,URINE NEGATIVE (NEGATIVE); PH,URINE 6.5 (5.0-8.0); PROTEIN,URINE NEGATIVE (NEGATIVE); UROBILINOGEN,URINE 0.2 mg/dL (0.2-1.0)
[2022-12-14] MEDS ORDERED: ALBUTEROL 0.083% 2.5 MG/3 ML INH IH ONE (13:30)
[2022-12-14] MEDS ORDERED: IPRATROPIUM 0.5 MG/2.5 ML INH IH ONE (13:30)
[2022-12-14] MEDS ORDERED: SOLU-MEDROL 125MG VIAL IVP ONE (13:30)
[2022-12-14] MEDS ORDERED: POTASSIUM BICARB/CIT AC 25 MEQ TABLET.EFF PO ONE (13:30)
[2022-12-14 13:32] LABS: ADD UA MICROSCOPIC NO
[2022-12-14 13:42] LABS: HCG,QUALITATIVE URINE NEGATIVE (NEGATIVE)
[2022-12-14 13:58] VITALS: PULSE 72; RESP 24
[2022-12-14 14:01] LABS: ABG BASE EXCESS 1.4 mmol/L (-2.0-3.0); ABG HCO3 23.2 mmol/L (21.0-28.0); ABG OXYGEN SATURATION 97.3 % (95.0-99.0); ABG PCO2 29 mmHg (32-45); ABG PH 7.515 (7.35-7.450); PO2, ARTERIAL BG 84.4 mmHg (83.0-108.0); VENT MODE, BG NC (ROOM AIR)
[2022-12-14] MEDS ORDERED: ALBU2.5V2 IH (15:01)
[2022-12-14] MEDS ORDERED: PRED20TA3 PO (15:01)
[2022-12-14 15:04] VITALS: BP 152/78; PULSE 82; RESP 17; O2SAT 96
== END 2022-12-14 15:12 | disposition home or self-care (01) ==
LOC: EDH 11:58
DX: J45.909 Unspecified asthma, uncomplicated (principal); F41.9 Anxiety disorder, unspecified; F32.A Depression, unspecified; E66.9 Obesity, unspecified; I10 Essential (primary) hypertension; Z90.49 Acquired absence of other specified parts of digestive tract
CPT/HCPCS: 99284; 96374; 71045; 84484; 80053; 82803; 85025; 81003; 81025; 36415; 36600; 94640; J2930

== ENCOUNTER 2022-12-24 19:34 | Emergency (ER) | payer BC ==
[~2022-12-24] VITALS: Ht 157.5 cm; Wt 122.9 kg
[~2022-12-24 19:34] MED LIST changes: +ALBU2.5V2 IH; +PRED20TA3 PO
[2022-12-24 20:22] LABS: BASOPHILS # (AUTO) 0.04 K/uL (0.00-0.20); BASOPHILS % (AUTO) 0.4 % (0.0-5.0); EOSINOPHILS # (AUTO) 0.21 K/uL (0.00-0.70); EOSINOPHILS % (AUTO) 1.9 % (0.0-8.0); HEMATOCRIT 37.1 % (36-48); IMMATURE GRANULOCYTE ABSOLUTE 0.07 K/uL (0-1); LYMPHOCYTES # (AUTO) 1.7 K/uL (1.0-4.8); MEAN CORPUSCULAR HEMOGLOBIN 28.7 pg (27.0-33.0); MEAN CORPUSCULAR HGB CONC 32.6 g/dL (32.0-36.0); MEAN CORPUSCULAR VOLUME 87.9 fL (79-99); MONOCYTES # (AUTO) 0.7 K/uL (0.1-1.0); MONOCYTES % (AUTO) 6.4 % (3.0-13.0); NEUTROPHILS # (AUTO) 8.5 K/uL (1.8-7.7); NEUTROPHILS % (AUTO) 75.7 % (40.0-77.0); PLATELET COUNT (AUTO) 309 K/uL (130-400); RED BLOOD CELL COUNT(AUTO) 4.22 MIL/uL (4.00-5.50); RED CELL DISTRIBUTION WIDTH 14.6 % (11.0-15.5); WHITE BLOOD COUNT (AUTO) 11.3 K/uL (4.8-10.8)
[2022-12-24 20:39] LABS: CREATININE 0.9 mg/dL (0.5-1.5); POTASSIUM 3.8 mmol/L (3.5-5.1)
[2022-12-24 20:45] LABS: ALBUMIN 3.5 g/dL (3.5-5.0); BILIRUBIN,TOTAL 0.2 mg/dL (0.2-1.0); MAGNESIUM 1.8 mg/dL (1.80-2.40); TOTAL PROTEIN, SERUM 7.7 g/dL (6.0-8.3)
[2022-12-24] MEDS ORDERED: NITROGLYCERIN 0.4 MG SL TAB SL PRN (21:30)
[2022-12-24] MEDS ORDERED: ASPIRIN 325MG TAB PO ONE (21:30)
[2022-12-24] MEDS ORDERED: ENOXAPARIN SODIUM 120 MG/0.8ML SQ ONE (21:30)
[2022-12-25 00:55] VITALS: BP 130/55; PULSE 79; RESP 15; O2SAT 98
[2022-12-25] MEDS ORDERED: NITR0.4T50 SL (01:12)
[2022-12-25] MEDS ORDERED: ASPI-1005 PO (01:12)
== END 2022-12-25 01:29 | disposition home or self-care (01) ==
LOC: EDH 19:34
DX: I20.89 Other forms of angina pectoris (principal); I10 Essential (primary) hypertension; I16.9 Hypertensive crisis, unspecified; F41.9 Anxiety disorder, unspecified; F32.A Depression, unspecified; J45.909 Unspecified asthma, uncomplicated; E66.9 Obesity, unspecified; Z79.899 Other long term (current) drug therapy; Z98.890 Other specified postprocedural states; Z90.710 Acquired absence of both cervix and uterus
CPT/HCPCS: 99284; 71045; 83735; 84484 ×2; 80053; 85025; 85378; 36415; 96372; 93005 ×2; J1650

== ENCOUNTER 2023-05-17 13:06 | Emergency (ER) | payer BC ==
[~2023-05-17] VITALS: Ht 157.5 cm; Wt 129.7 kg
[~2023-05-17 13:06] MED LIST changes: +ASPI-1005 PO; +NITR0.4T50 SL
[2023-05-17 16:08] VITALS: BP 141/80; PULSE 80; RESP 18; O2SAT 100
[2023-05-17] MEDS ORDERED: CLIN-141 PO (16:08)
[2023-05-17] MEDS: KETOROLAC 60 MG VIAL (30MG/ML) IM ONE (16:19)
== END 2023-05-17 16:22 | disposition home or self-care (01) ==
LOC: EDH 13:06
DX: L03.011 Cellulitis of right finger (principal); I10 Essential (primary) hypertension; E66.9 Obesity, unspecified; J45.909 Unspecified asthma, uncomplicated; Z79.82 Long term (current) use of aspirin; Z90.710 Acquired absence of both cervix and uterus; Z79.899 Other long term (current) drug therapy; Z98.890 Other specified postprocedural states; Z88.8 Allergy status to other drugs, medicaments and biological substances
CPT/HCPCS: 99284; 10060; 73130; 96372; J1885

== ENCOUNTER 2023-07-31 11:21 | Emergency (ER) | payer BC, OTHER ==
[~2023-07-31] VITALS: Ht 157.5 cm; Wt 126.6 kg
[~2023-07-31 11:21] MED LIST changes: +CLIN-141 PO
[2023-07-31] MEDS: IPRATROPIUM/ALBUTEROL SULFATE 3 ML SOLUTION IH ONE (11:49)
[2023-07-31 11:52] VITALS: PULSE 63; RESP 18
[2023-07-31 11:55] LABS: BASOPHILS # (AUTO) 0.06 K/uL (0.00-0.20); BASOPHILS % (AUTO) 1.1 % (0.0-5.0); EOSINOPHILS # (AUTO) 0.36 K/uL (0.00-0.70); EOSINOPHILS % (AUTO) 6.7 % (0.0-8.0); HEMATOCRIT 38.8 % (36-48); IMMATURE GRANULOCYTE ABSOLUTE 0.02 K/uL (0-1); LYMPHOCYTES # (AUTO) 1.5 K/uL (1.0-4.8); LYMPHOCYTES % (AUTO) 27.9 % (21.0-51.0); MEAN CORPUSCULAR HEMOGLOBIN 29.4 pg (27.0-33.0); MEAN CORPUSCULAR VOLUME 86.4 fL (79-99); MONOCYTES # (AUTO) 0.2 K/uL (0.1-1.0); MONOCYTES % (AUTO) 4.3 % (3.0-13.0); NEUTROPHILS # (AUTO) 3.2 K/uL (1.8-7.7); NEUTROPHILS % (AUTO) 59.6 % (40.0-77.0); PLATELET COUNT (AUTO) 306 K/uL (130-400); RED BLOOD CELL COUNT(AUTO) 4.49 MIL/uL (4.00-5.50); RED CELL DISTRIBUTION WIDTH 14.6 % (11.0-15.5); WHITE BLOOD COUNT (AUTO) 5.4 K/uL (4.8-10.8)
[2023-07-31 12:03] LABS: CREATININE 0.8 mg/dL (0.5-1.0); POTASSIUM 3.7 mmol/L (3.5-5.1)
[2023-07-31] MEDS: SOLU-MEDROL 125MG VIAL IVP ONE (12:03)
[2023-07-31] MEDS: MAGNESIUM 2GM PREMIX 50ML 25 ML IV ONE (12:04)
[2023-07-31 13:08] VITALS: BP 133/106; PULSE 64; RESP 18; O2SAT 97
[2023-07-31] MEDS ORDERED: ALBU18HF7 IH (13:16)
[2023-07-31] MEDS ORDERED: TIOT4MIS5 IH (13:16)
== END 2023-07-31 13:39 | disposition home or self-care (01) ==
LOC: EDH 11:21
DX: J45.901 Unspecified asthma with (acute) exacerbation (principal); I10 Essential (primary) hypertension; F41.9 Anxiety disorder, unspecified; Z79.82 Long term (current) use of aspirin; Z79.899 Other long term (current) drug therapy; Z98.890 Other specified postprocedural states
CPT/HCPCS: 99284; 96365; 71045; 96375; 80048; 85025; 36415; 94640; J3475; J2919

== ENCOUNTER 2023-08-28 18:43 | Emergency (ER) | payer BC, OTHER ==
[~2023-08-28] VITALS: Ht 157.5 cm; Wt 124.7 kg
[~2023-08-28 18:43] MED LIST changes: +TIOT4MIS5 IH
[2023-08-28] MEDS ORDERED: ONDANSETRON ODT 4MG TAB SL ONE (19:30)
[2023-08-28 20:54] LABS: BASOPHILS # (AUTO) 0.03 K/uL (0.00-0.20); BASOPHILS % (AUTO) 0.4 % (0.0-5.0); EOSINOPHILS # (AUTO) 0.35 K/uL (0.00-0.70); EOSINOPHILS % (AUTO) 4.6 % (0.0-8.0); IMMATURE GRANULOCYTE ABSOLUTE 0.02 K/uL (0-1); LYMPHOCYTES # (AUTO) 1.8 K/uL (1.0-4.8); LYMPHOCYTES % (AUTO) 22.8 % (21.0-51.0); MEAN CORPUSCULAR HEMOGLOBIN 28.7 pg (27.0-33.0); MEAN CORPUSCULAR HGB CONC 33.3 g/dL (32.0-36.0); MEAN CORPUSCULAR VOLUME 86.1 fL (79-99); MONOCYTES # (AUTO) 0.4 K/uL (0.1-1.0); MONOCYTES % (AUTO) 5.1 % (3.0-13.0); NEUTROPHILS # (AUTO) 5.1 K/uL (1.8-7.7); NEUTROPHILS % (AUTO) 66.8 % (40.0-77.0); PLATELET COUNT (AUTO) 271 K/uL (130-400); RED BLOOD CELL COUNT(AUTO) 4.18 MIL/uL (4.00-5.50); RED CELL DISTRIBUTION WIDTH 14.1 % (11.0-15.5); WHITE BLOOD COUNT (AUTO) 7.7 K/uL (4.8-10.8)
[2023-08-28 20:59] LABS: APPEARANCE,URINE CLEAR (CLEAR); BILIRUBIN,URINE NEGATIVE (NEGATIVE); COLOR,URINE LIGHT-YELLOW (YELLOW); GLUCOSE, URINE (UA) NEGATIVE (NEGATIVE); KETONES,URINE NEGATIVE (NEGATIVE); LEUKOCYTE ESTERASE ,URINE NEGATIVE Leu/uL (NEGATIVE); NITRATE,URINE NEGATIVE (NEGATIVE); OCCULT BLOOD,URINE NEGATIVE (NEGATIVE); PH,URINE 5.5 (5.0-8.0); PROTEIN,URINE NEGATIVE (NEGATIVE); UROBILINOGEN,URINE 0.2 mg/dL (0.2-1.0)
[2023-08-28 21:02] LABS: ADD UA MICROSCOPIC NO
[2023-08-28] MEDS: ONDANSETRON 4MG INJ IVP ONE (21:02)
[2023-08-28] MEDS: MORPHINE 2 MG SYG IVP ONE (21:02)
[2023-08-28 21:03] LABS: CREATININE 0.6 mg/dL (0.5-1.0); POTASSIUM 3.6 mmol/L (3.5-5.1)
[2023-08-28] MEDS: 0.9%NACL 1000ML 1,000 ML IV ONE (21:03)
[2023-08-28 21:08] LABS: ALBUMIN 3.7 g/dL (3.5-5.0); BILIRUBIN,TOTAL 0.3 mg/dL (0.2-1.0); TOTAL PROTEIN, SERUM 7.8 g/dL (6.0-8.3)
[2023-08-28] MEDS: KETOROLAC 30MG VIAL (30MG/ML) IVP ONE (21:59)
[2023-08-28] MEDS ORDERED: IOHEXOL 350 MG/ML 100ML INFUS..BTL IV ONE (22:13)
[2023-08-28 22:57] VITALS: BP 158/74; PULSE 82; RESP 18; O2SAT 98
[2023-08-28] MEDS ORDERED: KETO10TA2 PO (23:00)
[2023-08-28] MEDS ORDERED: CIPR500T10 PO (23:00)
[2023-08-28] MEDS ORDERED: METR-172 PO (23:00)
[2023-08-28] MEDS: CEFTRIAXONE 1G VIAL IVPB ONE (23:27)
[2023-08-30] MEDS ORDERED: ACET-2079 PO ×2 (15:57→16:01)
== END 2023-08-28 23:50 | disposition home or self-care (01) ==
LOC: EDH 18:43
DX: K57.32 Diverticulitis of large intestine without perforation or abscess without bleeding (principal); I10 Essential (primary) hypertension; E66.9 Obesity, unspecified; J45.909 Unspecified asthma, uncomplicated; Z79.82 Long term (current) use of aspirin; Z79.899 Other long term (current) drug therapy; Z98.890 Other specified postprocedural states
CPT/HCPCS: 99284; 74177; 96374; 96375; 96361; 80053; 84703; 85025; 81003; 36415; J2270; J7030; J0696; J2405; J1885; Q9967

== ENCOUNTER 2023-12-07 15:07 | Inpatient (IN) | payer BC ==
[~2023-12-07] VITALS: Ht 157.5 cm; Wt 122.8 kg
[~2023-12-07 15:07] MED LIST changes: -ALBU2.5V2 IH; -AMLO-257 PO; +AMLO5TAB4 PO; -ASPI-1005 PO; +ATOR40TA69 PO; -AUD IH; -CLIN-141 PO; +HYDR-3421 PO; -LEVO-70 PO; -METR-172 PO; +MONT-39 PO; -OMEP40CA21 PO; -PRED20TA3 PO
[2023-12-07] MEDS: MAGNESIUM 2GM PREMIX 50ML 50 ML IV SCH (15:45)
[2023-12-07] MEDS: Solu-medROL 125MG VIAL IVP ONE (15:45)
[2023-12-07 15:50] LABS: BASOPHILS # (AUTO) 0.04 K/uL (0.00-0.20); BASOPHILS % (AUTO) 0.6 % (0.0-5.0); EOSINOPHILS # (AUTO) 0.43 K/uL (0.00-0.70); EOSINOPHILS % (AUTO) 6.8 % (0.0-8.0); HEMATOCRIT 38.5 % (36-48); IMMATURE GRANULOCYTE ABSOLUTE 0.02 K/uL (0-1); LYMPHOCYTES # (AUTO) 1.6 K/uL (1.0-4.8); LYMPHOCYTES % (AUTO) 24.6 % (21.0-51.0); MEAN CORPUSCULAR HEMOGLOBIN 29.2 pg (27.0-33.0); MEAN CORPUSCULAR HGB CONC 33.5 g/dL (32.0-36.0); MEAN CORPUSCULAR VOLUME 87.1 fL (79-99); MONOCYTES # (AUTO) 0.3 K/uL (0.1-1.0); MONOCYTES % (AUTO) 4.1 % (3.0-13.0); NEUTROPHILS % (AUTO) 63.6 % (40.0-77.0); PLATELET COUNT (AUTO) 316 K/uL (130-400); RED BLOOD CELL COUNT(AUTO) 4.42 MIL/uL (4.00-5.50); RED CELL DISTRIBUTION WIDTH 14.6 % (11.0-15.5); WHITE BLOOD COUNT (AUTO) 6.3 K/uL (4.8-10.8)
[2023-12-07] MEDS: IpraTROPium/alBUTERol SULFATE 3 ML SOLUTION IH ONE (15:53)
[2023-12-07 15:54] VITALS: PULSE 64; RESP 18
[2023-12-07 16:08] LABS: CREATININE 0.9 mg/dL (0.5-1.0); POTASSIUM 3.6 mmol/L (3.5-5.1)
[2023-12-07 16:27] LABS: SARS-CoV-2, RNA, NAAT NEGATIVE SARS CoV-2 (NEGATIVE)
[2023-12-07] MEDS: ALBUTEROL 0.083% 2.5 MG/3 ML INH IH ONE (16:56)
[2023-12-07 16:57] VITALS: PULSE 64; RESP 18
[2023-12-07] MEDS ORDERED: IpraTROPium/alBUTERol SULFATE 3 ML SOLUTION IH ONE (17:00)
[2023-12-07 17:49] LABS: HEMOGLOBIN A1C 5.3 % (4.0-6.0)
[2023-12-07 17:56] LABS: THYROID STIMULATING HORMONE 1.19 uIU/mL (0.36-3.74)
[2023-12-07 17:58] LABS: ABG BASE EXCESS -2.5 mmol/L (-2.0-3.0); ABG HCO3 20.8 mmol/L (21.0-28.0); ABG OXYGEN SATURATION 95.5 % (94.0-98.0); ABG PCO2 32 mmHg (32-45); ABG PH 7.435 (7.350-7.450); CARBON MONOXIDE 1.4 % (0.5-1.5); DEVICE COMMENT RR RA; HHb 4.4; PO2, ARTERIAL BG 78.7 mmHg (83.0-108.0)
[2023-12-07 18:24] LABS: APPEARANCE,URINE CLEAR (CLEAR); BILIRUBIN,URINE NEGATIVE (NEGATIVE); COLOR,URINE YELLOW (YELLOW); GLUCOSE, URINE (UA) NEGATIVE (NEGATIVE); KETONES,URINE NEGATIVE (NEGATIVE); LEUKOCYTE ESTERASE ,URINE NEGATIVE Leu/uL (NEGATIVE); NITRATE,URINE NEGATIVE (NEGATIVE); OCCULT BLOOD,URINE NEGATIVE (NEGATIVE); PH,URINE 5.5 (5.0-8.0); PROTEIN,URINE NEGATIVE (NEGATIVE); UROBILINOGEN,URINE 0.2 mg/dL (0.2-1.0)
[2023-12-07 18:32] LABS: AMPHET/METH SCREEN,URINE NEGATIVE (NEGATIVE); BARBITURATE SCREEN, URINE NEGATIVE (NEGATIVE); BENZODIAZEPINES SCREEN,URINE NEGATIVE (NEGATIVE); CANNABINOID SCREEN,URINE NEGATIVE (NEGATIVE); COCAINE SCREEN,URINE POSITIVE (NEGATIVE); OPIATE SCREEN,URINE NEGATIVE (NEGATIVE); PHENCYCLIDINE SCREEN,URINE NEGATIVE (NEGATIVE)
[2023-12-07 18:34] LABS: ADD UA MICROSCOPIC NO
[2023-12-07] MEDS: AZITHROMYCIN 500MG+NS 250ML 250 ML IVPB SCH (19:07)
[2023-12-07 19:40] VITALS: PULSE 87; RESP 18; O2SAT 96
[2023-12-07] MEDS: ALBUTEROL 0.083% 2.5 MG/3 ML INH IH SCH (19:40)
[2023-12-07] MEDS ORDERED: Solu-medROL 125MG VIAL IVP SCH (20:00)
[2023-12-07] MEDS: Solu-medROL 125MG VIAL IVP SCH (20:55)
[2023-12-07] MEDS: FAMOTIDINE 20MG VIAL IV SCH (20:55)
[2023-12-07 21:20] VITALS: BP 158/67; PULSE 78; RESP 18; TEMP 97.7
[2023-12-07] MEDS ORDERED: cefTRIAXone 1G VIAL IVPB ONE (21:30)
[2023-12-07] MEDS ORDERED: FENTanyl CITRate PF 50 MCG/1 ML 2ML VIAL IVP ONE (21:30)
[2023-12-07] MEDS ORDERED: DOXYCYCLINE 100MG+NS 250ML 250 ML IV ONE (21:30)
[2023-12-07 21:35] VITALS: O2SAT 99
[2023-12-07] MEDS ORDERED: ADV250 IH (21:55)
[2023-12-07] MEDS ORDERED: DICY10CA2 PO (21:55)
[2023-12-07] MEDS ORDERED: OMEP40CA21 PO (21:55)
[2023-12-07] MEDS: acetaMINOPHEN 500 MG TABLET PO PRN (22:36)
[2023-12-07 22:44] VITALS: PULSE 81; RESP 18; O2SAT 97
[2023-12-07] MEDS ORDERED: ALBUTEROL 0.083% 2.5 MG/3 ML INH IH PRN (23:30)
[2023-12-08] VITALS (8 sets, daily range): BP systolic 133–145; BP diastolic 50–78; PULSE 65–84; RESP 16–19; TEMP 97.1–98.1; O2SAT 98–99
[2023-12-08 00:08] LABS: INFLUENZA TYPE A Negative For Type A (NEGATIVE); INFLUENZA TYPE B Negative For Type B (NEGATIVE)
[2023-12-08] MEDS: fluTICasone proPIONate 50MCG/SPRAY 16 GM BOTTLE EN ONE (00:12)
[2023-12-08] MEDS: IpraTROPium 0.5 MG/2.5 ML INH IH SCH (02:23)
[2023-12-08] MEDS: guaiFENesin-DM 200/20MG 10ML PO PRN (05:02)
[2023-12-08] MEDS ORDERED: IpraTROPium 0.5 MG/2.5 ML INH IH PRN (07:30)
[2023-12-08] MEDS ORDERED: FLUTICASONE/VILANTEROL 1 EACH AER.POW.BA IH SCH (09:00)
[2023-12-08] MEDS: predniSONE 20 MG TABLET PO SCH (09:09)
[2023-12-08] MEDS: ENOXAPARIN SODIUM 30 MG/0.3 ML SQ SCH (09:10)
[2023-12-08] MEDS ORDERED: AUD NEB (12:01)
[2023-12-08] MEDS ORDERED: AMOX1TAB16 PO (12:01)
[2023-12-08] MEDS ORDERED: NEBU-305 MC (12:01)
[2023-12-08] MEDS ORDERED: ALBU18HF7 IH (12:01)
== END 2023-12-08 12:40 | disposition home or self-care (01) | DRG 202 ==
LOC: EDH 15:07 → EDHIP 17:10 → 3AH 21:07
PROVIDERS: ADMIT Internal Medicine; ATTEND Internal Medicine
DX: J45.901 Unspecified asthma with (acute) exacerbation (principal); Z68.42 Body mass index [BMI] 45.0-49.9, adult; Z20.822 Contact with and (suspected) exposure to COVID-19; E66.01 Morbid (severe) obesity due to excess calories; F14.10 Cocaine abuse, uncomplicated; I10 Essential (primary) hypertension; F41.9 Anxiety disorder, unspecified; E78.5 Hyperlipidemia, unspecified; Z90.710 Acquired absence of both cervix and uterus
CPT/HCPCS: 36415; 36600; 71045; 80048; 80305; 81003; 82435; 82803; 82947; 83036; 83605; 84132; 84145; 84295; 84443; 84703; 85018; 85025; 86140; 87635; 87804; 87880; 94640; 94664; 96365; 96375; G0378; J0456; J1650; J2919; J3475; J3490

== ENCOUNTER 2024-01-30 14:13 | Emergency (ER) | payer BC, OTHER ==
[~2024-01-30] VITALS: Ht 157.5 cm; Wt 122.5 kg
[~2024-01-30 14:13] MED LIST changes: +ADV250 IH; +AMOX1TAB16 PO; +AUD NEB; -DICY10 PO; +DICY10CA2 PO; +NEBU-305 MC; +OMEP40CA21 PO
[2024-01-30] MEDS: Solu-medROL 125MG VIAL IVP ONE (14:33)
[2024-01-30] MEDS: MAGNESIUM 2GM PREMIX 50ML 50 ML IV SCH (14:34)
[2024-01-30] MEDS: IpraTROPium/alBUTERol SULFATE 3 ML SOLUTION IH ONE (14:35)
[2024-01-30 14:36] VITALS: PULSE 82; RESP 20
[2024-01-30 14:40] LABS: BASOPHILS # (AUTO) 0.05 K/uL (0.00-0.20); BASOPHILS % (AUTO) 0.8 % (0.0-5.0); EOSINOPHILS # (AUTO) 0.44 K/uL (0.00-0.70); EOSINOPHILS % (AUTO) 6.9 % (0.0-8.0); HEMATOCRIT 39.8 % (36-48); IMMATURE GRANULOCYTE ABSOLUTE 0.03 K/uL (0-1); LYMPHOCYTES # (AUTO) 1.7 K/uL (1.0-4.8); LYMPHOCYTES % (AUTO) 26.8 % (21.0-51.0); MEAN CORPUSCULAR HEMOGLOBIN 29.5 pg (27.0-33.0); MEAN CORPUSCULAR HGB CONC 33.7 g/dL (32.0-36.0); MEAN CORPUSCULAR VOLUME 87.5 fL (79-99); MONOCYTES # (AUTO) 0.3 K/uL (0.1-1.0); MONOCYTES % (AUTO) 4.9 % (3.0-13.0); NEUTROPHILS # (AUTO) 3.8 K/uL (1.8-7.7); NEUTROPHILS % (AUTO) 60.1 % (40.0-77.0); PLATELET COUNT (AUTO) 310 K/uL (130-400); RED BLOOD CELL COUNT(AUTO) 4.55 MIL/uL (4.00-5.50); RED CELL DISTRIBUTION WIDTH 13.2 % (11.0-15.5); WHITE BLOOD COUNT (AUTO) 6.3 K/uL (4.8-10.8)
--- NOTE | 2024-01-30 14:44 | ERN ---
General Chief Complaint: Adult-Asthma Stated Complaint: ASTHMA Time Seen by MD: 14:13 Time Seen by Midlevel: 14:13 Source: patient History of Present Illness Initial Comments Patient is a 43-year-old female with a past medical history of asthma presenting to the emergency department with shortness of breath that started earlier today. She reports running out of her asthma medication. She states she developed a cough a couple of days ago which worsened her asthma. On arrival she specifically denies any chest pain, fever, chills, or any other symptoms at this time. Allergies: Coded Allergies: No Known Drug Allergies (Verified Allergy, Unknown, 06/20/18) Home Meds Active Scripts Methylprednisolone (Medrol) 4 Mg Tab.ds.pk, 1 TAB PO AD for 6 Days, #21 TAB 0 Refills 6 on day 1 then reduce by one tablet daily until gone Prov:KELLI CONWAY 01/30/24 Azithromycin (Azithromycin) 250 Mg Tablet, 1 TAB PO AD for 5 Days, #6 TAB 0 Refills 2 the first day followed by 1 for days 2-5 Prov:KELLI CONWAY 01/30/24 Albuterol Sulfate (Albuterol Sulfate) 2.5 Mg/0.5 Ml Vial.neb, 2.5 MG IH Q6H for wheezing/sob, #20 INH 0 Refills Prov:KELLI CONWAY 01/30/24 Budesonide/Formoterol Fumarate (Budesonide-Formoterol 80-4.5) 80 Mcg-4.5 Mcg/Actuation Hfa.aer.ad, 2 PUFF PO BID for 30 Days, #10.2 GM 0 Refills Prov:KELLI CONWAY 01/30/24 Tiotropium [place] (Spiriva Respimat) 1.25 Mcg/Actuation Mist.inhal, 4 GM IH BID, #1 INHALER Prov:KELLI CONWAY 01/30/24 Lisinopril (Lisinopril) 10 Mg Tablet, 1 TAB PO BID for 10 Days, #20 TAB 0 Refills Prov:KELLI CONWAY 01/30/24 Montelukast Sodium (Montelukast Sodium) 10 Mg Tablet, 1 TAB PO DAILY for 30 Days, #30 TAB 0 Refills Prov:KELLI CONWAY 01/30/24 Nebulizer (Nebulizer) 1 Each Each, EACH , #1 1 Refill Prov:UTE FORBES MD 12/08/23 Albuterol Sulfate (Ventolin Hfa) 90 Mcg Hfa.aer.ad, 2 PUFF IH Q4HPRN PRN for wheezing for 30 Days, #18 GM 2 Refills Prov:UTE FORBES MD 12/08/23 Albuterol Sulfate (Albuterol Sulfate) 2.5 Mg/0.5 Ml Vial.neb, 1 VIAL NEB Q4H for shortness of breath for 30 Days, #30 ML 0 Refills Prov:UTE FORBES MD 12/08/23 Amoxicillin/Potassium Clav (Amox Tr-K Clv 875-125 mg Tab) 875 Mg-125 Mg Tablet, 1 TAB PO BID for 7 Days, #20 TAB 0 Refills Prov:UTE FORBES MD 12/08/23 Lisinopril (Lisinopril) 20 Mg Tablet, 20 MG PO BID for 30 Days, #60 TAB 1 Refill Prov:UTE FORBES MD 09/26/23 Atorvastatin Calcium (LIPITOR) 40 Mg Tablet, 40 MG PO HS for 30 Days, #30 TAB 1 Refill Prov:UTE FORBES MD 09/26/23 Amlodipine Besylate (Norvasc 5Mg Tab) 5 Mg Tablet, 10 MG PO DAILY for 30 Days, #30 TAB 1 Refill Prov:UTE FORBES MD 09/26/23 Hydroxyzine HCl (Hydroxyzine HCl) 25 Mg Tablet, 1 TAB PO [id number] for 30 Days, #60 TAB 1 Refill Prov:UTE FORBES MD 09/26/23 Montelukast Sodium (Montelukast Sodium) 10 Mg Tablet, 1 TAB PO DAILY for 30 Days, #30 TAB 1 Refill Prov:UTE FORBES MD 09/26/23 Tiotropium [place] (Spiriva Respimat) 1.25 Mcg/Actuation Mist.inhal, 4 GM IH BID for 30 Days, #1 INHALER 3 Refills Prov:UTE FORBES MD 09/26/23 Albuterol Sulfate (Ventolin Hfa) 90 Mcg Hfa.aer.ad, 18 GM IH BID for 30 Days, #1 INHALER 3 Refills Prov:UTE FORBES MD 09/26/23 Nitroglycerin (Nitroglycerin) 0.4 Mg Tab.subl, 0.4 MG SL AD for 30 Days, #30 TAB.SL 1 Refill In the event you experience chest pain please first call 911, second you can take 1 tablet under your tongue every 5 minutes if you continue to have chest pain (max allotment is 3 tablets over the course of 15 minutes) Prov:UTE FORBES MD 09/26/23 Reported Medications Dicyclomine HCl (Dicyclomine HCl) 10 Mg Capsule, 1 CAP PO DAILY PRN for ABDOMINAL PAIN for 25 Days, #100 CAP 0 Refills 12/07/23 Omeprazole (Omeprazole) 40 Mg Capsule.dr, 1 CAP PO DAILY for 30 Days, #30 CAP 0 Refills 12/07/23 Fluticasone/Salmeterol (ADVAIR 250-50 DISKUS) 14 Inh/Disk Inh, 1 PUFF IH BID for 30 Days, #1 EACH 0 Refills 12/07/23 Past Medical History Past Medical History: Anxiety, Asthma, Hypertension Medical History Other: Obesity Past Surgical History: Hysterectomy, Family History Family History: Negative Social History Social History: Drugs, Negative, Lives with family Female( History) History: Not Applicable ROS Dictation CONSTITUTIONAL: Negative except for HPI HEAD/FACE: Negative except for HPI EENT: Negative except for HPI RESPIRATORY: Negative except for HPI GASTROINTESTINAL/ABDOMINAL: Negative except for HPI GENITOURINARY: Negative except for HPI MUSCULOSKELETAL: Negative except for HPI INTEGUMENTARY: Negative except for HPI NEUROLOGICAL/PSYCH: Negative except for HPI HEMATOLOGIC/LYMPHATIC: Negative except for HPI All Systems Negative, Except as noted above. 13 point review of systems assessed and all negative except for above. Physical Exam Physical Exam Dictation Vital Signs reviewed General Appearance: Alert, oriented x 3, no acute distress, well developed, nourished. Head and Face: non-traumatic. Eyes: PERRL, pink conjunctivas, eyelid no trauma, anterior chamber with arcus senilis. Ears: Pinnas intact and no signs of trauma or erythema ear canals clear and no discharge TM no erythema Nose: No discharge, no bleeding. Oropharynx: Mouth normal, tongue pink, pharynx clear,no erythema, tonsils no exudates, no abscesses noted, mucous membrane moist Neck: Supple, non-tender, no thyromegaly, no masses, no JVD, no bruits Breast:Deferred Chest:No tenderness, no crepitus, no paradoxical movement, no retractions Lungs: Diffuse expiratory wheezing to bilateral lung knight, no rhonchi or rales noted, equal breath sounds bilaterally Heart: Regular rate, regular rhythm, no murmur, no gallops Vascular: no peripheral edema, Abdomen: Soft, positive bowel sounds, nondistended, no guarding, nontender, no rebound, no masses no hepatomegaly, no splenomegaly, no Huffman's sign, no hernias. Rectal: Deferred Genital: Deferred Neurological: Normal speech, motor function intact, sensory function intact Musculoskeletal: Neck nontender, full range of motion, back nontender, full range of motion, Extremities: nontender, full range of motion Skin: Color pink, dry, no turgor, no rash, no lacerations, no abrasions, no contusions. Lymphatic: Deferred Results Laboratory and Microbiology Lab and Micro Result Laboratory Tests Test 01/30/24 14:21 01/30/24 14:30 Influenza Type A Antigen Negative For Type A Influenza Type B Antigen Negative For Type B SARS-CoV-2, RNA, NAAT NEGATIVE SARS CoV-2 White Blood Count 6.3 K/uL (4.8-10.8) Red Blood Count 4.55 MIL/uL (4.00-5.50) Hemoglobin 13.4 g/dL (12.0-16.0) Hematocrit 39.8 % (36-48) Mean Corpuscular Volume 87.5 fL (79-99) Mean Corpuscular Hemoglobin 29.5 pg (27.0-33.0) Mean Corpuscular Hemoglobin Concent 33.7 g/dL (32.0-36.0) Red Cell Distribution Width 13.2 % (11.0-15.5) Platelet Count 310 K/uL (130-400) Mean Platelet Volume 10.7 fL (7.5-10.5) H Immature Granulocyte % (Auto) 0.5 % (0-1) Neutrophils (%) (Auto) 60.1 % (40.0-77.0) Lymphocytes (%) (Auto) 26.8 % (21.0-51.0) Monocytes (%) (Auto) 4.9 % (3.0-13.0) Eosinophils (%) (Auto) 6.9 % (0.0-8.0) Basophils (%) (Auto) 0.8 % (0.0-5.0) Neutrophils # (Auto) 3.8 K/uL (1.8-7.7) Lymphocytes # (Auto) 1.7 K/uL (1.0-4.8) Monocytes # (Auto) 0.3 K/uL (0.1-1.0) Eosinophils # (Auto) 0.44 K/uL (0.00-0.70) Basophils # (Auto) 0.05 K/uL (0.00-0.20) Absolute Immature Granulocyte (auto 0.03 K/uL (0-1) Nucleated Red Blood Cells 0.0 % (0.0-0.19) Sodium Level 142 mmol/L (136-145) Potassium Level 3.8 mmol/L (3.5-5.1) Chloride Level 107 mmol/L (101-111) Carbon Dioxide Level 26 mmol/L (21-32) Blood Urea Nitrogen 10 mg/dL (7-18) Creatinine 0.8 mg/dL (0.5-1.0) Glomerular Filtration Rate Calc 94 mL/min (>90) Random Glucose 92 mg/dL (70-105) Total Calcium 8.6 mg/dL (8.5-10.1) Labs Reviewed?: Yes MDM MDM: Patient is a 43-year-old female with a past medical history of asthma presenting to the emergency department with shortness of breath that started earlier today. She reports running out of her asthma medication. She states she developed a cough a couple of days ago which worsened her asthma. On arrival she specifically denies any chest pain, fever, chills, or any other symptoms at this time. On physical examination there is audible wheezing. She was diffuse expiratory wheezing during my lung auscultation to bilateral lung knight. Her vital signs are normal. Her O2 saturation is stable. Patient was given IV steroids, magnesium sulfate, and a breathing treatment. She was re- evaluated after 2 hours in the emergency department and has improved significantly. Her wheezing has completely resolved. She is in no acute respiratory distress. Her O2 saturation is normal. Her CBC and chemistries unremarkable. Her respiratory swabs are negative. Her chest x-ray does not show any evidence of pneumonia. Her home medications were refilled. She will be sent home with azithromycin and Medrol pack for outpatient management. She was advised to follow up with the PCP in 2-3 days for repeat evaluation. Return precautions discussed Differential diagnosis: Acute asthma exacerbation, viral syndrome, pneumonia There are no social concerns with this patient. Prescription drug management Prescriptions will include: Azithromycin and Medrol pack Medical management and examination interpretation discussions were had by me with other qualified healthcare professionals as indicated for the patient's care. ED Course Orders Procedure Category Date Status Time Cbc With Differential LAB 01/30/24 Complete 14:20 Basic Metabolic Panel LAB 01/30/24 Complete 14:20 Chest 1vw RAD 01/30/24 Resulted 14:20 Covid Rna Naat LAB 01/30/24 Complete 14:20 Influenza Type A & B, LAB 01/30/24 Complete Rapid 14:20 Magnesium 2gm Premix PHA 01/30/24 Complete 50ml (Magnesium 2gm 14:30 Methylprednisolone PHA 01/30/24 Complete Succ 125mg (Solu-Medr 14:30 Ipratropium/Albuterol PHA 01/30/24 Complete Neb (Duoneb) 14:30 Vital Signs Date Time Temp Pulse Resp B/P (MAP) Pulse Ox O2 Delivery O2 Flow Rate FiO2 01/30/24 16:40 98.4 72 19 171/85 98 Room Air* 0 01/30/24 15:35 98.1 81 20 165/81 98 Room Air* 0 21 01/30/24 14:36 82 20 01/30/24 14:30 98.2 104 30 182/104 96 Room Air* 0 01/30/24 14:18 98.1 76 28 164/119 98 0 [address] [id number] [place] [address] IMAGING REPORT Signed PATIENT: RAJINDER LEBLANC MR#: [id number] : 1980 SEX: F AGE: 43 LOCATION: [facility] ORDER 21 STATUS: REG ER REPORT#: [id number] SERVICE 19 REASON: sob hx of asthma ORDERING PHYSICIAN: KELLI CONWAY PROCEDURE: CXR1VW - CHEST 1VW CHEST 1VW HISTORY: Shortness of breath COMPARISON: 12/07/2023 FINDINGS: A frontal projection of the chest was obtained. No acute pulmonary infiltrates is seen. The heart is borderline enlarged. Prominent interstitial markings are seen. Degenerative changes are seen. No evidence of aortic calcification is seen. IMPRESSION: 1. No acute pulmonary infiltrate is seen. Prominent interstitial markings. DICTATED BY: ALFREDO MARTINEZ MD DATE: 01/30/241529 ELECTRONICALLY SIGNED BY: ALFREDO MARTINEZ MD DATE: 01/30/241531 DX & DISP Disposition: Discharge Departure Impression: Primary Impression: Acute asthma exacerbation Condition: Stable Scripts Methylprednisolone (Medrol) 4 Mg Tab.ds.pk 1 TAB PO AD for 6 Days, #21 TAB 0 Refills 6 on day 1 then reduce by one tablet daily until gone Prov: KELLI CONWAY 01/30/24 Azithromycin (Azithromycin) 250 Mg Tablet 1 TAB PO AD for 5 Days, #6 TAB 0 Refills 2 the first day followed by 1 for days 2-5 Prov: KELLI CONWAY 01/30/24 Albuterol Sulfate (Albuterol Sulfate) 2.5 Mg/0.5 Ml Vial.neb 2.5 MG IH Q6H for wheezing/sob, #20 INH 0 Refills Prov: KELLI CONWAY 01/30/24 Budesonide/Formoterol Fumarate (Budesonide-Formoterol 80-4.5) 80 Mcg-4.5 Mcg/Actuation Hfa.aer.ad 2 PUFF PO BID for 30 Days, #10.2 GM 0 Refills Prov: KELLI CONWAY 01/30/24 Tiotropium [place] (Spiriva Respimat) 1.25 Mcg/Actuation Mist.inhal 4 GM IH BID, #1 INHALER Prov: KELLI CONWAY 01/30/24 Lisinopril (Lisinopril) 10 Mg Tablet 1 TAB PO BID for 10 Days, #20 TAB 0 Refills Prov: KELLI CONWAY 01/30/24 Montelukast Sodium (Montelukast Sodium) 10 Mg Tablet 1 TAB PO DAILY for 30 Days, #30 TAB 0 Refills Prov: KELLI CONWAY 01/30/24 Additional Instructions: Your blood work today is unremarkable. You have tested negative for influenza a, influenza B, and COVID-19. Your chest x-ray does not reveal any evidence of pneumonia. It appears your symptoms today are related to an asthma flare-up. Have renewed her prescriptions and has sent you home with a prescription for azithromycin and Medrol pack was should help with your symptoms. Follow up with your primary care provider in 2-3 days for repeat evaluation. Return to the ER for any new or worsening symptoms Referrals: MARIA G WELCH (PCP) ATTESTATION BY PHYSICIAN I PERFORMED THE SUBSTANTIVE PORTION OF THE VISIT. I HAVE REVIEWED AND PERSONALLY MADE AND APPROVED THE MANAGEMENT PLAN THAT IS DOCUMENTED IN THE NOTE BY MYSELF FOR THE A PP. I ACKNOWLEDGED FOR RESPONSIBILITY FOR THE PATIENT'S MANAGEMENT PLAN. KELLI CONWAY Jan 30, 2024 14:44 JASMINE BRENNAN MD Feb 04, 2024 07:30
[2024-01-30 14:52] LABS: CREATININE 0.8 mg/dL (0.5-1.0); POTASSIUM 3.8 mmol/L (3.5-5.1)
[2024-01-30 15:00] LABS: SARS-CoV-2, RNA, NAAT NEGATIVE SARS CoV-2 (NEGATIVE)
[2024-01-30 15:05] LABS: INFLUENZA TYPE A Negative For Type A (NEGATIVE); INFLUENZA TYPE B Negative For Type B (NEGATIVE)
--- NOTE | 2024-01-30 15:32 | HMCIMG ---
CHEST 1VW HISTORY: Shortness of breath COMPARISON: 12/07/2023 FINDINGS: A frontal projection of the chest was obtained. No acute pulmonary infiltrates is seen. The heart is borderline enlarged. Prominent interstitial markings are seen. Degenerative changes are seen. No evidence of aortic calcification is seen. IMPRESSION: 1. No acute pulmonary infiltrate is seen. Prominent interstitial markings.
[2024-01-30] MEDS ORDERED: MONT-39 PO (15:45)
[2024-01-30] MEDS ORDERED: BUDE10.27 PO (15:45)
[2024-01-30] MEDS ORDERED: LISI10TA24 PO (15:45)
[2024-01-30] MEDS ORDERED: AUD IH (15:45)
[2024-01-30] MEDS ORDERED: TIOT4MIS5 IH (15:45)
[2024-01-30] MEDS ORDERED: METH4TAB3 PO (15:50)
[2024-01-30] MEDS ORDERED: AZIT250T9 PO (15:50)
[2024-01-30 16:40] VITALS: BP 171/85; PULSE 72; RESP 19; TEMP 98.5; O2SAT 98
== END 2024-01-30 16:54 | disposition home or self-care (01) ==
LOC: EDH 14:13
DX: J45.901 Unspecified asthma with (acute) exacerbation (principal); F41.9 Anxiety disorder, unspecified; E66.9 Obesity, unspecified; I10 Essential (primary) hypertension; Z79.51 Long term (current) use of inhaled steroids; Z79.899 Other long term (current) drug therapy; Z90.710 Acquired absence of both cervix and uterus; Z20.822 Contact with and (suspected) exposure to COVID-19
CPT/HCPCS: 99284; 96365; 71045; 87635; 96366; 96375; 80048; 85025; 87804 ×2; 36415; 94640; J3475; J2919

== ENCOUNTER 2024-03-04 13:36 | Emergency (ER) | payer OTHER ==
[~2024-03-04] VITALS: Ht 157.5 cm; Wt 116.1 kg
[~2024-03-04 13:36] MED LIST changes: -ADV250 IH; -ALBU18HF7 IH; +AMOX1TAB15 PO; -AMOX1TAB16 PO; +FLUT16H NS; +LISI10TA24 PO; -LISI20TA24 PO; -NEBU-305 MC; -OMEP40CA21 PO; +PRED20TA3 PO
--- NOTE | 2024-03-04 13:46 | ERN ---
ED Note History of Present Illness Stated Complaint: CHEST PAIN Time Seen by MD: 13:37 Dictation: PATIENT IS A 43-YEAR-OLD FEMALE COMING FROM A FLOOR UPSTAIRS AT [facility] WHILE SHE WAS HERE VISITING SOMEBODY SHE HAD DIFFUSE ANTERIOR CHEST PAIN NONRADIATING. NO FEVER NO CHILLS NO NAUSEA. NO HISTORY OF CAD. SHE STATES SHE HAS A HISTORY OF ASTHMA AND HAS BEEN SHORT OF BREATH SINCE YESTERDAY, USED HER INHALER TWICE TODAY. NO FEVER NO CHILLS NO NAUSEA VOMITING. Allergies: Coded Allergies: No Known Drug Allergies (Verified Allergy, Unknown, 06/20/18) Home Meds Active Scripts Fluticasone Propionate (Fluticasone Propionate) 50 Mcg/Actuation [place].susp, 2 SPRAY NS DAILY for 30 Days, #16 GM 0 Refills Prov:GIANNA SIDDIQI [facility] 02/28/24 Amoxicillin/Potassium Clav (Amox Tr-K Clv 500-125 mg Tab) 500 Mg-125 Mg Tablet, 1 TAB PO BID for 5 Days, #10 TAB 0 Refills Prov:GIANNA SIDDIQI [facility] 02/28/24 Prednisone (Prednisone) 20 Mg Tablet, 1 TAB PO DAILY for 5 Days, #5 TAB 0 Refills Prov:GIANNA SIDDIQI [facility] 02/28/24 Lisinopril (Lisinopril) 10 Mg Tablet, 1 TAB PO BID for 30 Days, #60 TAB 0 Refills Prov:GIANNA SIDDIQI [facility] 02/28/24 Montelukast Sodium (Montelukast Sodium) 10 Mg Tablet, 1 TAB PO HS for 30 Days, #30 TAB 0 Refills Prov:GIANNA SIDDIQI [facility] 02/28/24 Albuterol Sulfate (Albuterol Sulfate) 2.5 Mg/0.5 Ml Vial.neb, 1 VIAL NEB Q4H for shortness of breath for 30 Days, #30 ML 0 Refills Prov:GIANNA SIDDIQI [facility] 02/28/24 Tiotropium [place] (Spiriva Respimat) 1.25 Mcg/Actuation Mist.inhal, 4 GM IH BID, #1 INHALER Prov:KELLI CONWAY 01/30/24 Atorvastatin Calcium (LIPITOR) 40 Mg Tablet, 40 MG PO HS for 30 Days, #30 TAB 1 Refill Prov:UTE FORBES MD 09/26/23 Amlodipine Besylate (Norvasc 5Mg Tab) 5 Mg Tablet, 10 MG PO DAILY for 30 Days, #30 TAB 1 Refill Prov:UTE FORBES MD 09/26/23 Hydroxyzine HCl (Hydroxyzine HCl) 25 Mg Tablet, 1 TAB PO [id number] for 30 Days, #60 TAB 1 Refill Prov:UTE FORBES MD 09/26/23 Tiotropium [place] (Spiriva Respimat) 1.25 Mcg/Actuation Mist.inhal, 4 GM IH BID for 30 Days, #1 INHALER 3 Refills Prov:UTE FORBES MD 09/26/23 Nitroglycerin (Nitroglycerin) 0.4 Mg Tab.subl, 0.4 MG SL AD for 30 Days, #30 TAB.SL 1 Refill In the event you experience chest pain please first call 911, second you can take 1 tablet under your tongue every 5 minutes if you continue to have chest pain (max allotment is 3 tablets over the course of 15 minutes) Prov:UTE FORBES MD 09/26/23 Reported Medications Dicyclomine HCl (Dicyclomine HCl) 10 Mg Capsule, 1 CAP PO DAILY PRN for ABDOMINAL PAIN for 25 Days, #100 CAP 0 Refills 12/07/23 Discontinued Reported Medications Omeprazole (Omeprazole) 40 Mg Capsule.dr, 1 CAP PO DAILY for 30 Days, #30 CAP 0 Refills 12/07/23 Fluticasone/Salmeterol (ADVAIR 250-50 DISKUS) 14 Inh/Disk Inh, 1 PUFF IH BID for 30 Days, #1 EACH 0 Refills 12/07/23 Discontinued Scripts Azithromycin (Azithromycin) 250 Mg Tablet, 1 TAB PO AD for 5 Days, #6 TAB 0 Refills 2 the first day followed by 1 for days 2-5 Prov:KELLI CONWAY 01/30/24 Albuterol Sulfate (Albuterol Sulfate) 2.5 Mg/0.5 Ml Vial.neb, 2.5 MG IH Q6H for wheezing/sob, #20 INH 0 Refills Prov:KELLI CONWAY 01/30/24 Budesonide/Formoterol Fumarate (Budesonide-Formoterol 80-4.5) 80 Mcg-4.5 Mcg/Actuation Hfa.aer.ad, 2 PUFF PO BID for 30 Days, #10.2 GM 0 Refills Prov:KELLI CONWAY 01/30/24 Albuterol Sulfate (Ventolin Hfa) 90 Mcg Hfa.aer.ad, 2 PUFF IH Q4HPRN PRN for wheezing for 30 Days, #18 GM 2 Refills Prov:UTE FORBES MD 12/08/23 Albuterol Sulfate (Ventolin Hfa) 90 Mcg Hfa.aer.ad, 18 GM IH BID for 30 Days, #1 INHALER 3 Refills Prov:UTE FORBES MD 09/26/23 Past Medical History Past Medical History: Anxiety, Asthma, Hypertension Additional Past Medical Hx: Obesity Surgical History: Hysterectomy, Family History: Negative Social History: Drugs, Negative, Lives with family History: Not Applicable RN Note Reviewed/Agreed w/PFSH: Yes Review of System Dictation CONSTITUTIONAL: NEGATIVE EXCEPT FOR HPI HEAD/FACE: NEGATIVE EXCEPT FOR HPI EENT: NEGATIVE EXCEPT FOR HPI RESPIRATORY: NEGATIVE EXCEPT FOR HPI CHEST PAIN/SOB GASTROINTESTINAL/ABDOMINAL: NEGATIVE EXCEPT FOR HPI GENITOURINARY: NEGATIVE EXCEPT FOR HPI MUSCULOSKELETAL: NEGATIVE EXCEPT FOR HPI INTEGUMENTARY: NEGATIVE EXCEPT FOR HPI NEUROLOGICAL/PSYCH: NEGATIVE EXCEPT FOR HPI HEMATOLOGIC/LYMPHATIC: NEGATIVE EXCEPT FOR HPI ALL SYSTEMS NEGATIVE, EXCEPT NOTED ABOVE. 13 POINT REVIEW OF SYSTEMS ASSESSED AND ALL NEGATIVE EXCEPT FOR ABOVE. Initial Vital Sign VS Vital Signs Date Time Temp Pulse Resp B/P (MAP) Pulse Ox O2 Delivery O2 Flow Rate FiO2 03/04/24 14:03 98.2 69 22 170/98 99 Room Air Physical Exam Dictation VITAL SIGNS REVIEWED GENERAL APPEARANCE: ALERT, ORIENTED X 3, MILD ACUTE DISTRESS, WELL DEVELOPED, NOURISHED. OBESE HEAD AND FACE: NON-TRAUMATIC. EYES: PERRL, PINK CONJUNCTIVAS, EYELID NO TRAUMA, ANTERIOR CHAMBER WITH ARCUS SENILIS. EARS: PINNAS INTACT AND NO SIGNS OF TRAUMA OR ERYTHEMA EAR CANALS CLEAR AND NO DISCHARGE TM NO ERYTHEMA NOSE: NO DISCHARGE, NO BLEEDING. OROPHARYNX: MOUTH NORMAL, TONGUE PINK, PHARYNX CLEAR,NO ERYTHEMA, TONSILS NO EXUDATES, NO ABSCESSES NOTED, MUCOUS MEMBRANE MOIST NECK: SUPPLE, NON-TENDER, NO THYROMEGALY, NO MASSES, NO JVD, NO BRUITS BREAST:DEFERRED CHEST:NO TENDERNESS, NO CREPITUS, NO PARADOXICAL MOVEMENT, NO RETRACTIONS LUNGS:CLEAR, WELL-VENTILATED, SYMMETRIC, NO RALES, NO WHEEZING, NO RHONCHI, NO STRIDOR, GOOD BREATH SOUNDS BILATERALLY /DIMINISHED IN THE BASES HEART: REGULAR RATE, REGULAR RHYTHM, NO MURMUR, NO GALLOPS VASCULAR: NO PERIPHERAL EDEMA, ABDOMEN: SOFT, POSITIVE BOWEL SOUNDS, NONDISTENDED, NO GUARDING, NONTENDER, NO REBOUND, NO MASSES NO HEPATOMEGALY, NO SPLENOMEGALY, NO RAMIREZ'S SIGN, NO HERNIAS. RECTAL: DEFERRED GENITAL: DEFERRED NEUROLOGICAL: NORMAL SPEECH, MOTOR FUNCTION INTACT, SENSORY FUNCTION INTACT MUSCULOSKELETAL: NECK NONTENDER, FULL RANGE OF MOTION, BACK NONTENDER, FULL RANGE OF MOTION, EXTREMITIES: NONTENDER, FULL RANGE OF MOTION SKIN: COLOR PINK, DRY, NO TURGOR, NO RASH, NO LACERATIONS, NO ABRASIONS, NO CONTUSIONS. LYMPHATIC: DEFERRED Results (Laboratory/Radiology) Laboratory/Radiology Laboratory Tests Test 03/04/24 13:56 White Blood Count 8.0 K/uL (4.8-10.8) Red Blood Count 3.73 MIL/uL (4.00-5.50) L Hemoglobin 11.0 g/dL (12.0-16.0) L Hematocrit 33.2 % (36-48) L Mean Corpuscular Volume 89.0 fL (79-99) Mean Corpuscular Hemoglobin 29.5 pg (27.0-33.0) Mean Corpuscular Hemoglobin Concent 33.1 g/dL (32.0-36.0) Red Cell Distribution Width 14.9 % (11.0-15.5) Platelet Count 271 K/uL (130-400) Mean Platelet Volume 10.9 fL (7.5-10.5) H Immature Granulocyte % (Auto) 1.4 % (0-1) H Neutrophils (%) (Auto) 64.5 % (40.0-77.0) Lymphocytes (%) (Auto) 26.9 % (21.0-51.0) Monocytes (%) (Auto) 5.5 % (3.0-13.0) Eosinophils (%) (Auto) 1.4 % (0.0-8.0) Basophils (%) (Auto) 0.3 % (0.0-5.0) Neutrophils # (Auto) 5.2 K/uL (1.8-7.7) Lymphocytes # (Auto) 2.2 K/uL (1.0-4.8) Monocytes # (Auto) 0.4 K/uL (0.1-1.0) Eosinophils # (Auto) 0.11 K/uL (0.00-0.70) Basophils # (Auto) 0.02 K/uL (0.00-0.20) Absolute Immature Granulocyte (auto 0.11 K/uL (0-1) Nucleated Red Blood Cells 0.0 % (0.0-0.19) Sodium Level 141 mmol/L (136-145) Potassium Level 3.6 mmol/L (3.5-5.1) Chloride Level 105 mmol/L (101-111) Carbon Dioxide Level 29 mmol/L (21-32) Blood Urea Nitrogen 23 mg/dL (7-18) H Creatinine 0.7 mg/dL (0.5-1.0) Glomerular Filtration Rate Calc 111 mL/min (>90) Random Glucose 118 mg/dL (70-105) H Total Calcium 8.2 mg/dL (8.5-10.1) L Troponin I High Sensitivity 4 ng/L (4-50) Labs Reviewed?: Yes EKG Comment: EKG NORMAL SINUS RHYTHM/HEART RATE 69/AXIS NORMAL/NO ECTOPY ED Course ED Course Orders Procedure Category Date Status Time Cbc With Differential LAB 03/04/24 Complete 13:44 12 Lead Ekg Tracing- EKG 03/04/24 Complete Technical 13:44 Troponin I High LAB 03/04/24 Complete Sensitivity 13:44 Basic Metabolic Panel LAB 03/04/24 Complete 13:44 Dexamethasone 4mg/Ml PHA 03/04/24 Complete 1ml Vial (Dexametha 14:00 Albuterol 0.083% PHA 03/04/24 Complete 2.5mg/3ml (Proventil 14:00 Current Medications Medications (Trade) Dose Ordered Sig/[place]af Route PRN Reason Start Time Stop Time Status Last Admin Dose Admin Albuterol Sulfate (Proventil 0.083% 2.5mg/3ml) 5 mg ONCE ONCE IH 03/04/24 14:00 03/04/24 14:01 DC 03/04/24 14:47 Dexamethasone Sodium Phosphate (dexaMETHasone 4MG/ML 1ML VIAL) 8 mg ONCE ONCE IM 03/04/24 14:00 03/04/24 14:01 DC 03/04/24 14:21 Vital Signs Date Time Temp Pulse Resp B/P (MAP) Pulse Ox O2 Delivery O2 Flow Rate FiO2 03/04/24 14:48 80 16 03/04/24 14:03 98.2 69 22 170/98 99 Room Air 1515/patient is satting 99-100% on room air no chest pain at this time discharged home with asthma flare and atypical chest pain told to continue albuterol inhalers we will be given Medrol Dosepak and told to see her doctor. HEART Score Response (Comments) Value History: Low suspicion (0) 0 EKG: Normal 0 Age: < 45yrs (0) 0 Risk Factors: No known risk factors (0) 0 Initial Troponin: Normal limit (0) 0 Total 0 Medical Decision Making MDM MDM: Differential diagnosis: ACS/AMI/electrolyte imbalance/dehydration/atypical chest pain/asthma flare Rationale: Tests considered and ordered secondary to shared decision making include: EKG/labs Previous outside records reviewed: Old ER visits. Risk of complication and/or morbidity or mortality of patient management: None Medications-Per medication reconciliation Need for hospitalization: Patient does not meet criteria for hospitalization. No Need for emergency major/minor surgery: No There are no social concerns with this patient. Prescription drug management Medrol/albuterol Prescriptions will include symptomatic care Patient's prior external medical records from other ER visits were reviewed by me as indicated. Prior testing and results from previous visits were reviewed. Prior tests were taken into account with medical decision making and resource utilization, independent historian/historians were used to obtain complete medical history. I independently interpreted the test that were performed, results were reviewed by me and considered findings on radiology if ordered. Medical management and examination interpretation discussions were had by me with other qualified healthcare professionals as indicated for the patient's care. DX & DISP Disposition: Discharge Departure Impression: Primary Impression: Acute asthma exacerbation Additional Impression: Atypical chest pain Condition: Stable Scripts Albuterol Sulfate (Ventolin Hfa/Proventil Hfa/Proair Hfa) 90 Mcg Puff 2 PUFF IH Q4H for WHEEZING, #1 INHALER 0 Refills Prov: ARI MORGAN [employer] SALES REPRESENTATIVE 03/04/24 Prednisone (Prednisone) 20 Mg Tablet 1 TAB PO AD for 6 Days, #14 TAB 0 Refills TAKE 1 TAB BY MOUTH THREE TIMES PER DAY X3 DAYS, THEN TAKE 1 TAB BY MOUTH TWICE A DAY X2 DAYS, THEN TAKE 1 TAB BY MOUTH ONCE A DAY X1 DAY. Prov: ARI MORGAN NP 03/04/24 Additional Instructions: Follow-up with primary care provider in 1 to 2 days. Take medications as directed here in the emergency room. Okay to continue home medications unless otherwise discussed during your visit in the emergency room today. Return to your nearest emergency room if symptoms worsen or if there is no improvement. Call 911 if you need immediate assistance. Take Tylenol or Motrin [id number] as needed and if no contraindications are present. Increase oral hydration. A wound culture or urine culture was ordered here in the emergency room department please follow-up with primary care provider and advise them to get repeat ports from our facility. If you had any Rocael wrap/splints that were applied here, please do not remove them until you see your primary care or specialty. Take prednisone as directed until gone. Use your albuterol inhaler every4 hours while awake for the next two days. , see your primary care doctor for follow up and management in the next 1-2 days Referrals: MARIA G WELCH (PCP) Time of Disposition: 15:18 I have reviewed the case, and I agree with, Diagnosis and Plan ARI MORGAN NP Mar 04, 2024 13:46
--- NOTE | 2024-03-04 13:56 | EKG ---
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
[2024-03-04 14:02] LABS: BASOPHILS # (AUTO) 0.02 K/uL (0.00-0.20); BASOPHILS % (AUTO) 0.3 % (0.0-5.0); EOSINOPHILS # (AUTO) 0.11 K/uL (0.00-0.70); EOSINOPHILS % (AUTO) 1.4 % (0.0-8.0); HEMATOCRIT 33.2 % (36-48); IMMATURE GRANULOCYTE ABSOLUTE 0.11 K/uL (0-1); LYMPHOCYTES # (AUTO) 2.2 K/uL (1.0-4.8); LYMPHOCYTES % (AUTO) 26.9 % (21.0-51.0); MEAN CORPUSCULAR HEMOGLOBIN 29.5 pg (27.0-33.0); MEAN CORPUSCULAR HGB CONC 33.1 g/dL (32.0-36.0); MONOCYTES # (AUTO) 0.4 K/uL (0.1-1.0); MONOCYTES % (AUTO) 5.5 % (3.0-13.0); NEUTROPHILS # (AUTO) 5.2 K/uL (1.8-7.7); NEUTROPHILS % (AUTO) 64.5 % (40.0-77.0); PLATELET COUNT (AUTO) 271 K/uL (130-400); RED BLOOD CELL COUNT(AUTO) 3.73 MIL/uL (4.00-5.50); RED CELL DISTRIBUTION WIDTH 14.9 % (11.0-15.5)
[2024-03-04 14:12] LABS: CREATININE 0.7 mg/dL (0.5-1.0); POTASSIUM 3.6 mmol/L (3.5-5.1)
[2024-03-04] MEDS: dexaMETHasone SOD PHOSPHATE 4 MG/ML 1ML VIAL IM ONE (14:21)
[2024-03-04] MEDS: ALBUTEROL 0.083% 2.5 MG/3 ML INH IH ONE (14:47)
[2024-03-04 14:48] VITALS: PULSE 80; RESP 16
[2024-03-04] MEDS ORDERED: ALBUHFA IH (15:18)
[2024-03-04] MEDS ORDERED: PRED20TA3 PO (15:18)
[2024-03-04 15:51] VITALS: BP 158/92; PULSE 76; RESP 16; TEMP 98.2; O2SAT 99
[2024-03-04] MEDS ORDERED: AMOX1TAB16 PO (23:46)
[2024-03-04] MEDS ORDERED: DICY20TA3 PO (23:46)
== END 2024-03-04 16:01 | disposition home or self-care (01) ==
LOC: EDH 13:36
DX: J45.901 Unspecified asthma with (acute) exacerbation (principal); R07.89 Other chest pain; E66.9 Obesity, unspecified; F41.9 Anxiety disorder, unspecified; I10 Essential (primary) hypertension; Z79.51 Long term (current) use of inhaled steroids; Z79.52 Long term (current) use of systemic steroids; Z79.899 Other long term (current) drug therapy; Z90.710 Acquired absence of both cervix and uterus; Z98.890 Other specified postprocedural states
CPT/HCPCS: 99284; 84484; 80048; 85025; 36415; 96372; 93005; 94640; J1100

== ENCOUNTER 2024-03-04 20:03 | Emergency (ER) | payer OTHER ==
[~2024-03-04] VITALS: Ht 157.5 cm; Wt 124.3 kg
[~2024-03-04 20:03] MED LIST changes: +ALBUHFA IH
[2024-03-04 21:01] LABS: BASOPHILS # (AUTO) 0.02 K/uL (0.00-0.20); BASOPHILS % (AUTO) 0.2 % (0.0-5.0); IMMATURE GRANULOCYTE ABSOLUTE 0.17 K/uL (0-1); LYMPHOCYTES # (AUTO) 0.8 K/uL (1.0-4.8); LYMPHOCYTES % (AUTO) 7.5 % (21.0-51.0); MEAN CORPUSCULAR HEMOGLOBIN 29.3 pg (27.0-33.0); MEAN CORPUSCULAR HGB CONC 32.6 g/dL (32.0-36.0); MONOCYTES # (AUTO) 0.1 K/uL (0.1-1.0); MONOCYTES % (AUTO) 0.8 % (3.0-13.0); NEUTROPHILS # (AUTO) 9.6 K/uL (1.8-7.7); NEUTROPHILS % (AUTO) 89.9 % (40.0-77.0); PLATELET COUNT (AUTO) 270 K/uL (130-400); RED BLOOD CELL COUNT(AUTO) 3.89 MIL/uL (4.00-5.50); RED CELL DISTRIBUTION WIDTH 14.8 % (11.0-15.5); WHITE BLOOD COUNT (AUTO) 10.7 K/uL (4.8-10.8)
[2024-03-04 21:10] LABS: CREATININE 0.7 mg/dL (0.5-1.0); POTASSIUM 4.3 mmol/L (3.5-5.1)
[2024-03-04 21:15] LABS: ALBUMIN 3.3 g/dL (3.5-5.0); BILIRUBIN,DIRECT 0.1 mg/dL (0.0-0.3); BILIRUBIN,TOTAL 0.2 mg/dL (0.2-1.0); TOTAL PROTEIN, SERUM 7.2 g/dL (6.0-8.3)
[2024-03-04] MEDS ORDERED: IOHEXOL-350 75 ML VIAL IV ONE (21:55)
[2024-03-04] MEDS: morPHINE 4 MG SYG IVP ONE (22:13)
[2024-03-04] MEDS: ketOROlac 15MG/ML VIAL (15MG/ML) IV ONE (22:13)
[2024-03-04] MEDS: 0.9%NACL 1000ML 1,000 ML IV ONE (22:13)
[2024-03-04 22:15] LABS: HCG,QUALITATIVE URINE NEGATIVE (NEGATIVE)
[2024-03-04 22:16] LABS: APPEARANCE,URINE CLEAR (CLEAR); BILIRUBIN,URINE NEGATIVE (NEGATIVE); COLOR,URINE COLORLESS (YELLOW); GLUCOSE, URINE (UA) NEGATIVE (NEGATIVE); KETONES,URINE NEGATIVE (NEGATIVE); LEUKOCYTE ESTERASE ,URINE NEGATIVE Leu/uL (NEGATIVE); NITRATE,URINE NEGATIVE (NEGATIVE); OCCULT BLOOD,URINE NEGATIVE (NEGATIVE); PH,URINE 5.5 (5.0-8.0); PROTEIN,URINE NEGATIVE (NEGATIVE); UROBILINOGEN,URINE 0.2 mg/dL (0.2-1.0)
[2024-03-04 22:18] LABS: ADD UA MICROSCOPIC NO
[2024-03-04] MEDS: MAG/ALUM/SIMETH 30 ML UDCUP PO ONE (23:29)
--- NOTE | 2024-03-04 23:34 | HMCIMG ---
CT ABDOMEN/PELVIS W/CONTRAST HISTORY: Abdominal pain COMPARISON: None TECHNIQUE: Multiple sequential axial images of the abdomen and pelvis were obtained from the dome of the diaphragm through symphysis pubis. Patient was not given contrast through intravenous route. Oral contrast was not given. FINDINGS: No pleural effusion is seen bilaterally. There is no evidence of parenchymal disease or pulmonary nodule of the visualized lower lungs. Degenerative changes of the thoracolumbar spine are present. The heart is not enlarged. Liver is enlarged and fatty changes measuring 22 cm. The liver, spleen, adrenal glands and pancreas are unremarkable. There is no evidence of hydronephrosis bilaterally. No evidence of renal stone is seen. There is diverticulosis. Fecal material is seen in the colon. There are normal size retroperitoneal and mesenteric lymph nodes. No ascites is seen. Atherosclerotic changes are present. Pelvic sidewalls are symmetric bilaterally. Bladder is well distended without wall thickening. IMPRESSION: 1. Diverticulosis. No acute findings. CT was performed with one or more following dose reduction techniques: automated exposure control, adjustment of the mA and kv according to patient's size, or use of a iterative reconstruction technique.
[2024-03-04] MEDS ORDERED: DICY20TA3 PO (23:46)
[2024-03-04] MEDS ORDERED: AMOX1TAB16 PO (23:46)
--- NOTE | 2024-03-04 23:47 | ERN ---
General Chief Complaint: Abdominal Pain Stated Complaint: ABDOMINAL PAIN Time Seen by MD: 20:07 History of Present Illness Initial Comments 43F presents for L sided abdominal pain x 24 hours. Moderate to severe, L sided, constant, located to L upper and lower quadrants, non-radiating. No vomiting, cp, fevers, dairrhea, constipation, urinary symptoms, or discharge. Denies pelvic pain. She has been eating. She reports that it feels like a flair up of her diverticulitis. Allergies: Coded Allergies: No Known Drug Allergies (Verified Allergy, Unknown, 06/20/18) Home Meds Active Scripts Dicyclomine HCl (Dicyclomine HCl) 20 Mg Tablet, 1 TAB PO TID for irritable bowel symptoms for 10 Days, #30 TAB 0 Refills Prov:MARIA M DOMINGO DO 03/04/24 Amoxicillin/Potassium Clav (Amox Tr-K Clv 875-125 mg Tab) 875 Mg-125 Mg Tablet, 1 TAB PO BID for 10 Days, #20 TAB 0 Refills Prov:MARIA M DOMINGO DO 03/04/24 Albuterol Sulfate (Ventolin Hfa/Proventil Hfa/Proair Hfa) 90 Mcg Puff, 2 PUFF IH Q4H for WHEEZING, #1 INHALER 0 Refills Prov:ARI MORGAN NP 03/04/24 Prednisone (Prednisone) 20 Mg Tablet, 1 TAB PO AD for 6 Days, #14 TAB 0 Refills TAKE 1 TAB BY MOUTH THREE TIMES PER DAY X3 DAYS, THEN TAKE 1 TAB BY MOUTH TWICE A DAY X2 DAYS, THEN TAKE 1 TAB BY MOUTH ONCE A DAY X1 DAY. Prov:ARI MORGAN NP 03/04/24 Fluticasone Propionate (Fluticasone Propionate) 50 Mcg/Actuation [place].susp, 2 SPRAY NS DAILY for 30 Days, #16 GM 0 Refills Prov:GIANNA SIDDIQI [employer]ON[employer] 02/28/24 Amoxicillin/Potassium Clav (Amox Tr-K Clv 500-125 mg Tab) 500 Mg-125 Mg Tablet, 1 TAB PO BID for 5 Days, #10 TAB 0 Refills Prov:GIANNA SIDDIQI [employer]ON[employer]ATOR 02/28/24 Prednisone (Prednisone) 20 Mg Tablet, 1 TAB PO DAILY for 5 Days, #5 TAB 0 Refills Prov:GIANNA SIDDIQI [employer] DEMONSTRATOR 1/16/25 Lisinopril (Lisinopril) 10 Mg Tablet, 1 TAB PO BID for 30 Days, #60 TAB 0 Refills Prov:GIANNA SIDDIQI Faina [employer]ATOR 02/28/24 Montelukast Sodium (Montelukast Sodium) 10 Mg Tablet, 1 TAB PO HS for 30 Days, #30 TAB 0 Refills Prov:SIDDIQIMJGIANNA O [employer]ONSTRATOR 02/28/24 Albuterol Sulfate (Albuterol Sulfate) 2.5 Mg/0.5 Ml Vial.neb, 1 VIAL NEB Q4H for shortness of breath for 30 Days, #30 ML 0 Refills Prov:GIANNA SIDDIQI Faina [employer] 02/28/24 Tiotropium [place] (Spiriva Respimat) 1.25 Mcg/Actuation [place].inhal, 4 GM IH BID, #1 INHALER Prov:KELLI CONWAY 01/30/24 Atorvastatin Calcium (LIPITOR) 40 Mg Tablet, 40 MG PO HS for 30 Days, #30 TAB 1 Refill Prov:UTE FORBES MD 09/26/23 Amlodipine Besylate (Norvasc 5Mg Tab) 5 Mg Tablet, 10 MG PO DAILY for 30 Days, #30 TAB 1 Refill Prov:UTE FORBES MD 09/26/23 Hydroxyzine HCl (Hydroxyzine HCl) 25 Mg Tablet, 1 TAB PO [id number] for 30 Days, #60 TAB 1 Refill Prov:UTE FORBES MD 09/26/23 Tiotropium [place] (Spiriva Respimat) 1.25 Mcg/Actuation [place].inhal, 4 GM IH BID for 30 Days, #1 INHALER 3 Refills Prov:UTE FORBES MD 09/26/23 Nitroglycerin (Nitroglycerin) 0.4 Mg Tab.subl, 0.4 MG SL AD for 30 Days, #30 TAB.SL 1 Refill In the event you experience chest pain please first call 911, second you can take 1 tablet under your tongue every 5 minutes if you continue to have chest pain (max allotment is 3 tablets over the course of 15 minutes) Prov:UTE FORBES MD 09/26/23 Reported Medications Dicyclomine HCl (Dicyclomine HCl) 10 Mg Capsule, 1 CAP PO DAILY PRN for ABDOMINAL PAIN for 25 Days, #100 CAP 0 Refills 12/07/23 Discontinued Reported Medications Omeprazole (Omeprazole) 40 Mg Capsule.dr, 1 CAP PO DAILY for 30 Days, #30 CAP 0 Refills 12/07/23 Fluticasone/Salmeterol (ADVAIR 250-50 DISKUS) 14 Inh/Disk Inh, 1 PUFF IH BID for 30 Days, #1 EACH 0 Refills 12/07/23 Discontinued Scripts Azithromycin (Azithromycin) 250 Mg Tablet, 1 TAB PO AD for 5 Days, #6 TAB 0 Refills 2 the first day followed by 1 for days 2-5 Prov:KELLI CONWAY 01/30/24 Albuterol Sulfate (Albuterol Sulfate) 2.5 Mg/0.5 Ml Vial.neb, 2.5 MG IH Q6H for wheezing/sob, #20 INH 0 Refills Prov:KELLI CONWAY 01/30/24 Budesonide/Formoterol Fumarate (Budesonide-Formoterol 80-4.5) 80 Mcg-4.5 Mcg/Actuation Hfa.aer.ad, 2 PUFF PO BID for 30 Days, #10.2 GM 0 Refills Prov:KELLI CONWAY 01/30/24 Albuterol Sulfate (Ventolin Hfa) 90 Mcg Hfa.aer.ad, 2 PUFF IH Q4HPRN PRN for wheezing for 30 Days, #18 GM 2 Refills Prov:UTE FORBES MD 12/08/23 Albuterol Sulfate (Ventolin Hfa) 90 Mcg Hfa.aer.ad, 18 GM IH BID for 30 Days, #1 INHALER 3 Refills Prov:UTE FORBES MD 09/26/23 Past Medical History Past Medical History: Anxiety, Asthma, Diverticulosis, High Cholesterol, Hypertension Medical History Other: Obesity Past Surgical History: Hysterectomy, Family History Family History: Negative Social History Social History: Drugs, Negative, Lives with family Female( History) History: Not Applicable ROS Dictation CONSTITUTIONAL: No chills, no fever, no weakness, no diaphoresis, no malaise. HEAD/FACE: No signs of trauma. EENT: No eye pain, no blurred vision, no tearing, no double vision, no ear pain, no ear discharge, no nose pain, no nasal congestion, no throat pain, no throat swelling, no mouth pain. RESPIRATORY: No cough, no orthopnea, no SOB, no stridor, no wheezing. CARDIOVASCULAR: No chest pain, no edema, no palpitations, no syncope. GASTROINTESTINAL/ABDOMINAL: Abdominal pain GENITOURINARY: No abnormal discharge, no dysuria, no frequent urination, no hematuria. No complaints of pain in the genitals. MUSCULOSKELETAL: No back pain, no gout, no joint pain, no joint swelling, no muscle pain, no muscle stiffness, no neck pain. INTEGUMENTARY: No change in color, no change in hair/nails, no dryness, no lesion, no lumps, no rash. NEUROLOGICAL/PSYCH: No anxiety, not depressed, no emotional problem, no headache, no numbness, no pre-existing deficit, no history of seizures, no tremors, no weakness. HEMATOLOGIC/LYMPHATIC: Not anemic, no history of blood clots, no apparent bleeding, no bruising, glands not swollen. All Systems Negative, Except as Noted. Physical Exam Physical Exam Dictation VITAL SIGNS: Reviewed. GENERAL APPEARANCE: Alert, oriented x3, no acute distress, obese. HEAD AND FACE: Non-traumatic. EYES: PERRL, pink conjunctivas, eyelid no trauma, anterior chamber clear. EARS: Pinnas intact and no signs of trauma or erythema. Ear canals clear and no discharge. TMs no erythema. NOSE: No discharge, no bleeding. OROPHARYNX: Mouth normal, teeth no caries, tongue pink. Pharynx clear, no erythema. Tonsils no exudates, no abscesses noted. Mucous membrane moist. NECK: Supple, non-tender, no thyromegaly, no masses, no JVD, no bruits. BREAST: Deferred. CHEST: No tenderness, no crepitus, no paradoxical movement, no retractions. LUNGS: Clear, well-ventilated, symmetric, no rales, no wheezing, no rhonchi, no stridor, good breath sounds bilaterally. HEART: Regular rate, regular rhythm, no murmur, no gallops. VASCULAR: No peripheral edema. ABDOMEN: Soft, positive bowel sounds, nondistended, no guarding, nontender, no rebound, no masses no hepatomegaly, no splenomegaly, no Huffman's sign, no hernias. RECTAL: Deferred. GENITAL: Deferred. NEUROLOGICAL: Normal speech, gross motor function intact, gross sensory function intact. MUSCULOSKELETAL: Neck nontender, full range of motion, back nontender, full range of motion. EXTREMITIES: Nontender, full range of motion. SKIN: Color pink, dry, no turgor, no rash, no lacerations, no abrasions, no contusions. LYMPHATICS: Deferred. Results Laboratory and Microbiology Lab and Micro Result Laboratory Tests Test 03/04/24 20:51 03/04/24 21:04 White Blood Count 10.7 K/uL (4.8-10.8) # Red Blood Count 3.89 MIL/uL (4.00-5.50) L Hemoglobin 11.4 g/dL (12.0-16.0) L Hematocrit 35.0 % (36-48) L Mean Corpuscular Volume 90.0 fL (79-99) Mean Corpuscular Hemoglobin 29.3 pg (27.0-33.0) Mean Corpuscular Hemoglobin Concent 32.6 g/dL (32.0-36.0) Red Cell Distribution Width 14.8 % (11.0-15.5) Platelet Count 270 K/uL (130-400) Mean Platelet Volume 10.9 fL (7.5-10.5) H Immature Granulocyte % (Auto) 1.6 % (0-1) H Neutrophils (%) (Auto) 89.9 % (40.0-77.0) H Lymphocytes (%) (Auto) 7.5 % (21.0-51.0) L Monocytes (%) (Auto) 0.8 % (3.0-13.0) L Eosinophils (%) (Auto) 0.0 % (0.0-8.0) Basophils (%) (Auto) 0.2 % (0.0-5.0) Neutrophils # (Auto) 9.6 K/uL (1.8-7.7) H Lymphocytes # (Auto) 0.8 K/uL (1.0-4.8) L Monocytes # (Auto) 0.1 K/uL (0.1-1.0) Eosinophils # (Auto) 0.00 K/uL (0.00-0.70) Basophils # (Auto) 0.02 K/uL (0.00-0.20) Absolute Immature Granulocyte (auto 0.17 K/uL (0-1) Nucleated Red Blood Cells 0.0 % (0.0-0.19) White Cell Morphology Comment See comments Sodium Level 137 mmol/L (136-145) Potassium Level 4.3 mmol/L (3.5-5.1) Chloride Level 100 mmol/L (101-111) L Carbon Dioxide Level 27 mmol/L (21-32) Blood Urea Nitrogen 19 mg/dL (7-18) H Creatinine 0.7 mg/dL (0.5-1.0) Glomerular Filtration Rate Calc 111 mL/min (>90) Random Glucose 129 mg/dL (70-105) H Total Calcium 8.5 mg/dL (8.5-10.1) Total Bilirubin 0.2 mg/dL (0.2-1.0) Direct Bilirubin 0.1 mg/dL (0.0-0.3) Aspartate Amino Transf (AST/SGOT) 13 U/L (10-37) Alanine Aminotransferase (ALT/SGPT) 31 U/L (12-78) Alkaline Phosphatase 80 U/L (50-136) Total Protein 7.2 g/dL (6.0-8.3) Albumin 3.3 g/dL (3.5-5.0) L Lipase 21 U/L (16-77) Urine Color COLORLESS (YELLOW) Urine Appearance CLEAR (CLEAR) Urine pH 5.5 (5.0-8.0) Urine Specific [place] 1.020 (1.001-1.031) Urine Protein NEGATIVE mg/dL (NEGATIVE) Urine Glucose (UA) NEGATIVE mg/dL (NEGATIVE) Urine Ketones NEGATIVE mg/dL (NEGATIVE) Urine Occult Blood NEGATIVE (NEGATIVE) Urine Nitrate NEGATIVE (NEGATIVE) Urine Bilirubin NEGATIVE mg/dL (NEGATIVE) Urine Urobilinogen 0.2 mg/dL (0.2-1.0) Urine Leukocyte Esterase NEGATIVE Luis/uL Urine HCG, Qualitative NEGATIVE (NEGATIVE) MDM CC: L sided abdominal pain, upper and lower quadrants x 24 hours Historian: patient Comorbidities: obesity, hx of diverticulitis, anxiety, asthma, DLD, HTN, hysterectomy, Limitations by social determinates of health: none Ddx: diverticulitis, surgical pathology, GERD, gastritis, mesenteric ischemia, sepsis, etc. VS: hypertensive 199/103, otherwise stable L sided abd tenderness Labs (independently interpreted and ordered by me): CBC no leukocytosis, normocytic anemia, L shift. BMP stable, elevated BUN/Cr ratio consistent with dehydration. Liver function tests normal, lipast normal. UA normal. CT abdomen and pelvis with contrast (independently interpreted by me ): Diverticulosis, no signs of diverticulitis, no free air, no surgical pathology. Treatment: 1L NS, 15mg IV toradol, 4mg IV morphine for significant pain Re-evaluation: pain improved, stable. Low suspician for surgical pathology, vascular pathology, sepsis, or other life threats. Can be managed as outpatient. Plan: DC to PCP f/u. REASON: L sided abd pain, hx of diverticulitis ORDERING PHYSICIAN: MARIA M DOMINGO DO PROCEDURE: ABD PEL W - CT ABDOMEN/PELVIS W/CONTRAST CT ABDOMEN/PELVIS W/CONTRAST HISTORY: Abdominal pain COMPARISON: None TECHNIQUE: Multiple sequential axial images of the abdomen and pelvis were obtained from the dome of the diaphragm through symphysis pubis. Patient was not given contrast through intravenous route. Oral contrast was not given. FINDINGS: No pleural effusion is seen bilaterally. There is no evidence of parenchymal disease or pulmonary nodule of the visualized lower lungs. Degenerative changes of the thoracolumbar spine are present. The heart is not enlarged. Liver is enlarged and fatty changes measuring 22 cm. The liver, spleen, adrenal glands and pancreas are unremarkable. There is no evidence of hydronephrosis bilaterally. No evidence of renal stone is seen. There is diverticulosis. Fecal material is seen in the colon. There are normal size retroperitoneal and mesenteric lymph nodes. No ascites is seen. Atherosclerotic changes are present. Pelvic sidewalls are symmetric bilaterally. Bladder is well distended without wall thickening. IMPRESSION: 1. Diverticulosis. No acute findings. ED Course Orders Procedure Category Date Status Time Cbc With Differential LAB 03/04/24 Complete 20: ,Urine Test LAB 03/04/24 Complete 20: Urinalysis Profile LAB 03/04/24 Complete 20: Lipase LAB 03/04/24 Complete 20:31 Basic Metabolic Panel LAB 03/04/24 Complete 20: Hepatic Function Panel LAB 03/04/24 Complete 20:31 Ketorolac PHA 03/04/24 Complete Tromethamine 15mg/Ml 22:00 Morphine 4mg Syg PHA 03/04/24 Complete (Morphine 4mg Syg) 22:00 0.9%Nacl 1000ml (Ns PHA 03/04/24 Complete 1000ml) 22:00 Ct Abdomen/Pelvis CT 03/04/24 Resulted W/Contrast 21:45 Iohexol (Omnipaque) PHA 03/04/24 Complete 21:55 Mag/Alum/Simeth 30ml PHA 03/04/24 Complete (Maalox Plus 30ml) 23:30 Current Medications Medications (Trade) Dose Ordered Sig/[place] Route PRN Reason Start Time Stop Time Status Last Admin Dose Admin Al Hydroxide/Mg Hydroxide (MAALox PLUS 30ML) 30 ml ONCE ONCE PO 03/04/24 23:30 03/04/24 23:31 DC 03/04/24 23:29 Iohexol (Omnipaque) 75 ml STK-MED ONCE IV 03/04/24 21:55 03/04/24 21:55 DC Ketorolac Tromethamine (toRADol) 15 mg ONCE ONCE IV 03/04/24 22:00 03/04/24 22:01 DC 03/04/24 22:13 Morphine Sulfate (morPHINE 4MG SYG) 4 mg ONCE ONCE IVP 03/04/24 22:00 03/04/24 22:01 DC 03/04/24 22:13 Sodium Chloride 1,000 ml @ 0 mls/hr ONCE ONCE IV 03/04/24 22:00 03/04/24 22:01 DC 03/04/24 22:13 Vital Signs Date Time Temp Pulse Resp B/P (MAP) Pulse Ox O2 Delivery O2 Flow Rate FiO2 03/04/24 21:35 72 18 175/67 98 Room Air* 0 21 03/04/24 20:59 98.2 65 20 199/103 96 Room Air DX & DISP Disposition: Discharge Departure Impression: Primary Impression: Generalized abdominal pain Additional Impression: Mild dehydration Condition: Stable Scripts Dicyclomine HCl (Dicyclomine HCl) 20 Mg Tablet 1 TAB PO TID for irritable bowel symptoms for 10 Days, #30 TAB 0 Refills Prov: MARIA M DOMINGO DO 03/04/24 Amoxicillin/Potassium Clav (Amox Tr-K Clv 875-125 mg Tab) 875 Mg-125 Mg Tablet 1 TAB PO BID for 10 Days, #20 TAB 0 Refills Prov: MARIA M DOMINGO DO 03/04/24 Additional Instructions: There are no dangerous findings on your workup here today. There are no obvious sources of your pain. Your vital signs have been stable here in the ER. Your blood work (CBC, BMP, lipase, liver function tests, urinalysis) shows some signs of mild dehydration but is otherwise unremarkable. The CT scan of your abdomen and pelvis shows diverticulosis without any signs of acute infection. As we discussed, your symptoms may indicate early diverticulitis. I recommend monitoring your symptoms over the next 48 hours. If you would develop fever, continue with the pain, or have any stool changes, I recommend that you start the antibiotics that I have prescribed. If you feel better in the next day or two, I recommend avoiding the antibiotics. I have prescribed dicyclomine to use as needed for abdominal discomfort. You can also take [id number] Tylenol or ibuprofen as needed. I recommend the BRAT (bananas, rice, applesauce, and toast) diet for the next 24 hours or so. After that you can advance your diet as tolerated. If you do continue with symptoms in the next 48 hours or so, I recommend starting the antibiotics and following up with your primary doctor. Please return to the emergency department as needed. Referrals: MARIA G WELCH (PCP) MARIA M DOMINGO DO Mar 04, 2024 23:47
[2024-03-05 00:01] VITALS: BP 159/64; PULSE 72; RESP 18; TEMP 98.2; O2SAT 96
== END 2024-03-05 00:02 | disposition home or self-care (01) ==
LOC: EDH 20:03
DX: R10.84 Generalized abdominal pain (principal); E86.0 Dehydration; E66.9 Obesity, unspecified; E78.00 Pure hypercholesterolemia, unspecified; F41.9 Anxiety disorder, unspecified; I10 Essential (primary) hypertension; J45.909 Unspecified asthma, uncomplicated; Z79.51 Long term (current) use of inhaled steroids; Z79.52 Long term (current) use of systemic steroids; Z79.899 Other long term (current) drug therapy; Z90.710 Acquired absence of both cervix and uterus; Z98.890 Other specified postprocedural states
CPT/HCPCS: 99285; 74177; 96374; 96361; 96375; 80076; 80048; 83690; 85025; 81003; 81025; 36415; J1885; J7030; J2270; Q9967

== ENCOUNTER 2024-06-21 01:51 | Emergency (ER) | payer BC, OTHER ==
[~2024-06-21] VITALS: Ht 157.5 cm; Wt 123.4 kg
[~2024-06-21 01:51] MED LIST changes: +AMOX1TAB16 PO; +DICY-20 PO; -DICY10CA2 PO; +DICY20TA3 PO
[2024-06-21 01:52] VITALS: TEMP 98
--- NOTE | 2024-06-21 02:33 | ERN ---
ED Note History of Present Illness Stated Complaint: CHEST PAIN Chief Complaint: Chest Pain Time Seen by MD: 01:58 Dictation: This Is a 44-year-old morbidly obese female who presented to the emergency room with complaints of chest pain. The pain started a few hours prior to the pres entation she stated that the pain was mostly in the substernal area radiating to the arm no diaphoresis syncope palpitations. She does admit to recreational drugs including cocaine use. The last she admits was day before. No nausea vomitings diarrhea hematemesis or melena she does have mild cough and congestion. No fever chills or rigors. No mucopurulent sputum Temperature 98 pulse 69 respirations 20 blood pressure 166/100 pulse oximetry 98% on room air Her chronic medical problems include anxiety, asthma, hypertension, hypercholesterolemia and diverticulosis Allergies: Coded Allergies: No Known Drug Allergies (Verified Allergy, Unknown, 06/20/18) Home Meds Active Scripts Omeprazole (Omeprazole) 40 Mg Capsule.dr, 1 CAP PO DAILY for 30 Days, #30 CAP 0 Refills Prov:SONY SORENOSN MD 06/21/24 Dicyclomine HCl (Dicyclomine HCl) 20 Mg Tablet, 1 TAB PO TID for irritable bowel symptoms for 10 Days, #30 TAB 0 Refills Prov:MARIA M DOMINGO DO 03/04/24 Amoxicillin/Potassium Clav (Amox Tr-K Clv 875-125 mg Tab) 875 Mg-125 Mg Tablet, 1 TAB PO BID for 10 Days, #20 TAB 0 Refills Prov:MARIA M DOMINGO DO 03/04/24 Albuterol Sulfate (Ventolin Hfa/Proventil Hfa/Proair Hfa) 90 Mcg Puff, 2 PUFF IH Q4H for WHEEZING, #1 INHALER 0 Refills Prov:ARI MORGAN NP 03/04/24 Prednisone (Prednisone) 20 Mg Tablet, 1 TAB PO AD for 6 Days, #14 TAB 0 Refills TAKE 1 TAB BY MOUTH THREE TIMES PER DAY X3 DAYS, THEN TAKE 1 TAB BY MOUTH TWICE A DAY X2 DAYS, THEN TAKE 1 TAB BY MOUTH ONCE A DAY X1 DAY. Prov:ARI MORGAN NP 03/04/24 Fluticasone Propionate (Fluticasone Propionate) 50 Mcg/Actuation [place].susp, 2 SPRAY NS DAILY for 30 Days, #16 GM 0 Refills Prov:GIANNA SIDDIQI INSOLE COVERER 02/28/24 Amoxicillin/Potassium Clav (Amox Tr-K Clv 500-125 mg Tab) 500 Mg-125 Mg Tablet, 1 TAB PO BID for 5 Days, #10 TAB 0 Refills Prov:GIANNA SIDDIQI [employer]SO[employer] C[employer]ER 02/28/24 Prednisone (Prednisone) 20 Mg Tablet, 1 TAB PO DAILY for 5 Days, #5 TAB 0 Refills Prov:GIANNA SIDDIQI INSO[employer] COVERER 02/28/24 Lisinopril (Lisinopril) 10 Mg Tablet, 1 TAB PO BID for 30 Days, #60 TAB 0 Refills Prov:GIANNA SIDDIQI [facility] 02/28/24 Montelukast Sodium (Montelukast Sodium) 10 Mg Tablet, 1 TAB PO HS for 30 Days, #30 TAB 0 Refills Prov:GIANNA SIDDIQI [facility] 02/28/24 Albuterol Sulfate (Albuterol Sulfate) 2.5 Mg/0.5 Ml Vial.neb, 1 VIAL NEB Q4H for shortness of breath for 30 Days, #30 ML 0 Refills Prov:GIANNA SIDDIQI [facility] 02/28/24 Tiotropium [place] (Spiriva Respimat) 1.25 Mcg/Actuation Mist.inhal, 4 GM IH BID, #1 INHALER Prov:KELLI CONWAY 01/30/24 Atorvastatin Calcium (LIPITOR) 40 Mg Tablet, 40 MG PO HS for 30 Days, #30 TAB 1 Refill Prov:UTE FORBES MD 09/26/23 Amlodipine Besylate (Norvasc 5Mg Tab) 5 Mg Tablet, 10 MG PO DAILY for 30 Days, #30 TAB 1 Refill Prov:UTE FORBES MD 09/26/23 Hydroxyzine HCl (Hydroxyzine HCl) 25 Mg Tablet, 1 TAB PO [id number] for 30 Days, #60 TAB 1 Refill Prov:UTE FORBES MD 09/26/23 Tiotropium [place] (Spiriva Respimat) 1.25 Mcg/Actuation Mist.inhal, 4 GM IH BID for 30 Days, #1 INHALER 3 Refills Prov:UTE FORBES MD 09/26/23 Nitroglycerin (Nitroglycerin) 0.4 Mg Tab.subl, 0.4 MG SL AD for 30 Days, #30 TAB.SL 1 Refill In the event you experience chest pain please first call 911, second you can take 1 tablet under your tongue every 5 minutes if you continue to have chest pain (max allotment is 3 tablets over the course of 15 minutes) Prov:UTE FORBES MD 09/26/23 Reported Medications Dicyclomine HCl (Dicyclomine HCl) 10 Mg Capsule, 1 CAP PO DAILY PRN for ABDOMINAL PAIN for 25 Days, #100 CAP 0 Refills 12/07/23 Past Medical History Past Medical History: Anxiety, Asthma, Hypertension Additional Past Medical Hx: Obesity Surgical History: Family History: Negative Social History: Drugs, Negative, Lives with family History: Not Applicable RN Note Reviewed/Agreed w/PFSH: Yes Review of System Dictation Constitutional: Negative for fever,chills, and weight loss Eyes: Negative for injury, pain,redness, and discharge ENT: Negative for injury,pain or swelling Cardiovascular: Positive for chest pain, denied palpitations, and edema Respiratory: Negative for shortness of breath, positive for cough, and congestion Abdomen/GI: Negative for abdominal pain, nausea, vomiting, diarrhea, and constipation Back: Negative for injury and pain : Negative for injury, bleeding and discharge MS/Extremity: Negative for injury and deformity Skin: Negative for rash, and discoloration Neuro: Negative for headache, weakness, numbness, tingling, and seizure Psych: Negative for suicide ideation, homicidal ideation, and hallucinations Initial Vital Sign VS Vital Signs Date Time Temp Pulse Resp B/P (MAP) Pulse Ox O2 Delivery O2 Flow Rate FiO2 06/21/24 01:52 98.1 69 20 166/100 98 Room Air 06/21/24 02:26 0 21 Physical Exam Dictation General: awake, alert, NAD morbidly obese Head/Face: Normocephalic, atraumatic Eyes: PERRL, EOMI, vision at baseline ENT: oral cavity clear, TMs clear, no signs of infection Neck: Trachea midline, supple, no nuchal rigidity Cardiovascular: RRR, normal S1/S2, No MRGs, no JVD Respiratory: CTAB, no respiratory distress, No rales or wheezes Abdomen: Soft, non-tender, non-distended, normal bowel sounds, no guarding or rebound. Skin: Warm, dry, normal turgor, no rash MS/Extremity: Pulses equal, no cyanosis, neurovascular intact, FROM Neuro: COAx4, GCS 15, strength 5/5, CN 2-12 intact, normal cerebellar exam, normal gait, Psych: Normal behavior, mood, and affect normal Extremities-trace edema without any palpable cords, Homans sign is negative Results (Laboratory/Radiology) Laboratory/Radiology Laboratory Tests Test 06/21/24 02:33 06/21/24 03:02 White Blood Count 5.9 K/uL (4.8-10.8) Red Blood Count 4.15 MIL/uL (4.00-5.50) Hemoglobin 12.2 g/dL (12.0-16.0) Hematocrit 36.3 % (36-48) Mean Corpuscular Volume 87.5 fL (79-99) Mean Corpuscular Hemoglobin 29.4 pg (27.0-33.0) Mean Corpuscular Hemoglobin Concent 33.6 g/dL (32.0-36.0) Red Cell Distribution Width 13.9 % (11.0-15.5) Platelet Count 289 K/uL (130-400) Mean Platelet Volume 10.8 fL (7.5-10.5) H Immature Granulocyte % (Auto) 0.3 % (0-1) Neutrophils (%) (Auto) 53.0 % (40.0-77.0) Lymphocytes (%) (Auto) 35.9 % (21.0-51.0) Monocytes (%) (Auto) 6.1 % (3.0-13.0) Eosinophils (%) (Auto) 4.2 % (0.0-8.0) Basophils (%) (Auto) 0.5 % (0.0-5.0) Neutrophils # (Auto) 3.1 K/uL (1.8-7.7) Lymphocytes # (Auto) 2.1 K/uL (1.0-4.8) Monocytes # (Auto) 0.4 K/uL (0.1-1.0) Eosinophils # (Auto) 0.25 K/uL (0.00-0.70) Basophils # (Auto) 0.03 K/uL (0.00-0.20) Absolute Immature Granulocyte (auto 0.02 K/uL (0-1) Nucleated Red Blood Cells 0.0 % (0.0-0.19) Urine Color YELLOW (YELLOW) Urine Appearance CLEAR (CLEAR) Urine pH 6.0 (5.0-8.0) Urine Specific [place] 1.032 (1.001-1.031) Urine Protein 20 mg/dL (NEGATIVE) H Urine Glucose (UA) NEGATIVE mg/dL (NEGATIVE) Urine Ketones 5 mg/dL (NEGATIVE) H Urine Occult Blood NEGATIVE (NEGATIVE) Urine Nitrate NEGATIVE (NEGATIVE) Urine Bilirubin NEGATIVE mg/dL (NEGATIVE) Urine Urobilinogen 3 mg/dL (0.2-1.0) H Urine Leukocyte Esterase NEGATIVE Luis/uL Urine RBC 0-1 /HPF (0-1) Urine WBC 0-1 /HPF (0-1) Urine Squamous Epithelial Cells RARE /HPF (0-2) Urine Bacteria None /HPF (None Seen) Urine HCG, Qualitative NEGATIVE (NEGATIVE) Sodium Level 142 mmol/L (136-145) Potassium Level 3.2 mmol/L (3.5-5.1) L Chloride Level 106 mmol/L (101-111) Carbon Dioxide Level 29 mmol/L (21-32) Blood Urea Nitrogen 15 mg/dL (7-18) Creatinine 0.8 mg/dL (0.5-1.0) Glomerular Filtration Rate Calc 94 mL/min (>90) Random Glucose 121 mg/dL (70-105) H Total Calcium 8.4 mg/dL (8.5-10.1) L Total Creatine Kinase 58 U/L (21-232) Troponin I High Sensitivity 6 ng/L (4-50) B-Type Natriuretic Peptide 85 pg/mL (0-100) Influenza Type A Antigen Negative For Type A Influenza Type B Antigen Negative For Type B SARS-CoV-2 Antigen (Rapid) PRESUMPTIVE NEGATIVE Labs Reviewed?: Yes EKG Comment: Twelve lead EKG done on 06/21/2024 at 2:01 a.m. showed a heart rate of 64, MD interval 153, QRS 92, QT/QTC 435/451 Impression normal sinus rhythm overall somewhat low voltage likely from the body habitus of BMI of 50. Some nonspecific T-wave changes more pronounced in the inferior leads. No acute ST elevations noted. Poor progression of the R-waves. EKG rhythm strip showed a normal sinus rhythm with no acute STT wave changes noted. Interpreted by ER MD Dr. Sorenson ED Course ED Course Orders Procedure Category Date Status Time Vital Signs Per CPOE 06/21/24 Transmitted Routine 01:58 B-Type Natriuretic LAB 06/21/24 Complete Peptide 01:58 12 Lead Ekg Tracing- EKG 06/21/24 Complete Technical 01:58 Oxygen By Nc/Pulse Ox CPOE 06/21/24 Transmitted 01:58 Maintain Iv CPOE 06/21/24 Transmitted 01:58 Iv Insertion CPOE 06/21/24 Transmitted 01:58 Cardiac Monitoring CPOE 06/21/24 Transmitted 01:58 Pulse Oximetry With CPOE 06/21/24 Transmitted Vs And Prn 01:58 Cbc With Differential LAB 06/21/24 Complete 01:58 Activity: Br W/Brp CPOE 06/21/24 Transmitted With Assist 01:58 Creatine Kinase, Total LAB 06/21/24 Complete 01:58 Troponin I High LAB 06/21/24 Complete Sensitivity 01:58 Urinalysis Profile LAB 06/21/24 Complete 01:58 Basic Metabolic Panel LAB 06/21/24 Complete 01:58 Influenza Type A & B, LAB 06/21/24 Complete Rapid 01:58 Covid19 (Sars Antigen LAB 06/21/24 Complete Rapid) 01:58 Chest 1vw RAD 06/21/24 Resulted 01:58 ,Urine Test LAB 06/21/24 Complete 01:58 Ketorolac PHA 06/21/24 Complete Tromethamine 30mg/Ml 03:30 Famotidine 20mg Vial PHA 06/21/24 Complete (Pepcid 20mg Vial) 03:30 Ondansetron 4mg Inj PHA 06/21/24 Complete (Zofran 4mg Inj) 03:30 Current Medications Medications (Trade) Dose Ordered Sig/Nawaf Route PRN Reason Start Time Stop Time Status Last Admin Dose Admin Famotidine (Pepcid 20mg Vial) 20 mg ONCE ONCE IV 06/21/24 03:30 06/21/24 03:31 DC 06/21/24 03:29 Ketorolac Tromethamine (toRADol) 30 mg ONCE ONCE IVP 06/21/24 03:30 06/21/24 03:31 DC 06/21/24 03:29 Ondansetron HCl (zoFRAN 4MG INJ) 4 mg ONCE ONCE IVP 06/21/24 03:30 06/21/24 03:31 DC 06/21/24 03:29 Vital Signs Date Time Temp Pulse Resp B/P (MAP) Pulse Ox O2 Delivery O2 Flow Rate FiO2 06/21/24 04:57 65 18 122/48 99 Room Air* 0 21 06/21/24 03:45 71 18 150/87 99 Room Air* 0 21 06/21/24 02:26 76 18 143/89 99 Room Air* 0 21 06/21/24 01:52 98.1 69 20 166/100 98 Room Air We will perform diagnostic labs, advanced imaging and administer medications according to the patient's complaint. Once the results are available, will review and personally interpreted the labs to rule out any acute life- threatening emergency the trach require immediate intervention and treatment. I will then re-evaluate the patient after treatment and diagnostic exams have return to determine whether the patient requires any further testing, can safely be discharged home or need further admission to hospital for additional treatment and evaluation. Labs reviewed CBC is with a normal limits urine test is negative urinalysis is unremarkable. BNP 7 revealed a potassium of 3.2 and is glucose of 121 troponins are negative. Serology for influenza as well as other studies are negative. Chest x-ray is unremarkable for any acute infiltrate. I updated the patient at bedside on all the available information lab test and results including the chest x-ray. She does admit to some reflux symptoms in the past and responded to symptomatic treatment Medical Decision Making MDM MDM: Differential diagnosis: Cardiac chest pain, i esophagitis, gastritis, hiatal hernia, musculoskeletal pain Rationale: Tests considered and ordered secondary to shared decision making include: Previous outside records reviewed: Old ER visits. Risk of complication and/or morbidity or mortality of patient management: None Medications-Per medication reconciliation Need for hospitalization: Patient does not meet criteria for hospitalization. Need for emergency major/minor surgery: No There are no social concerns with this patient. Prescription drug management Prescriptions will include symptomatic care Patient's prior external medical records from other ER visits were reviewed by me as indicated. Prior testing and results from previous visits were reviewed. Prior tests were taken into account with medical decision making and resource utilization, independent historian/historians were used to obtain complete medical history. I independently interpreted the test that were performed, results were reviewed by me and considered findings on radiology if ordered. Medical management and examination interpretation discussions were had by me with other qualified healthcare professionals as indicated for the patient's care. Problem List Problem List: (1) Atypical chest pain (2) Obesity (3) Gastroesophageal reflux DX & DISP Disposition: Discharge Departure Impression: Primary Impression: Atypical chest pain Additional Impressions: Obesity, Gastroesophageal reflux Condition: Stable Scripts Omeprazole (Omeprazole) 40 Mg Capsule.dr 1 CAP PO DAILY for 30 Days, #30 CAP 0 Refills Prov: SONY SORENSON MD 06/21/24 Additional Instructions: Patient and the caregiver have been informed of all the diagnostic tests and the imaging conducted during the today's visit to the emergency room and has verbalized understanding of the results I have personally reviewed and interpreted all diagnostic exams performed here in the ER today as well as the vital signs documented by the nursing staff. The patient is now being discharged to home and should follow up with the primary care physician or the specialist as directed by the ER staff. Follow-up with primary care provider in 1 to 2 days. Take medications as directed here in the emergency room. Okay to continue home medications unless otherwise discussed during your visit in the emergency room today. Return to your nearest emergency room if symptoms worsen or if there is no improvement. Call 911 if you need immediate assistance. Take Tylenol or Motrin [id number] as needed and if no contraindications are present. Increase oral hydration. A wound culture or urine culture was ordered here in the emergency room department please follow-up with primary care provider and advise them to get repeat ports from our facility. If you had any Rocael wrap/splints that were applied here, please do not remove them until you see your primary care or specialty. Referrals: MARIA G WELCH (PCP) SONY SORENSON MD June 21, 2024 02:33
[2024-06-21 02:42] LABS: BASOPHILS # (AUTO) 0.03 K/uL (0.00-0.20); BASOPHILS % (AUTO) 0.5 % (0.0-5.0); EOSINOPHILS # (AUTO) 0.25 K/uL (0.00-0.70); EOSINOPHILS % (AUTO) 4.2 % (0.0-8.0); HEMATOCRIT 36.3 % (36-48); IMMATURE GRANULOCYTE ABSOLUTE 0.02 K/uL (0-1); LYMPHOCYTES # (AUTO) 2.1 K/uL (1.0-4.8); LYMPHOCYTES % (AUTO) 35.9 % (21.0-51.0); MEAN CORPUSCULAR HEMOGLOBIN 29.4 pg (27.0-33.0); MEAN CORPUSCULAR HGB CONC 33.6 g/dL (32.0-36.0); MEAN CORPUSCULAR VOLUME 87.5 fL (79-99); MONOCYTES # (AUTO) 0.4 K/uL (0.1-1.0); MONOCYTES % (AUTO) 6.1 % (3.0-13.0); NEUTROPHILS # (AUTO) 3.1 K/uL (1.8-7.7); PLATELET COUNT (AUTO) 289 K/uL (130-400); RED BLOOD CELL COUNT(AUTO) 4.15 MIL/uL (4.00-5.50); RED CELL DISTRIBUTION WIDTH 13.9 % (11.0-15.5); WHITE BLOOD COUNT (AUTO) 5.9 K/uL (4.8-10.8)
[2024-06-21 02:50] LABS: CREATININE 0.8 mg/dL (0.5-1.0); POTASSIUM 3.2 mmol/L (3.5-5.1)
[2024-06-21 02:52] LABS: APPEARANCE,URINE CLEAR (CLEAR); BILIRUBIN,URINE NEGATIVE (NEGATIVE); COLOR,URINE YELLOW (YELLOW); GLUCOSE, URINE (UA) NEGATIVE (NEGATIVE); KETONES,URINE 5 mg/dL (NEGATIVE); LEUKOCYTE ESTERASE ,URINE NEGATIVE Leu/uL (NEGATIVE); NITRATE,URINE NEGATIVE (NEGATIVE); OCCULT BLOOD,URINE NEGATIVE (NEGATIVE); PROTEIN,URINE 20 mg/dL (NEGATIVE); UROBILINOGEN,URINE 3 mg/dL (0.2-1.0)
[2024-06-21 02:53] LABS: ADD UA MICROSCOPIC YES
[2024-06-21 02:54] LABS: HCG,QUALITATIVE URINE NEGATIVE (NEGATIVE); MUCUS,URINE RARE LPF (None Seen); RBC,URINE 0-1 /HPF (0-1); SQUAMOUS EPITHELIAL CELL,UR RARE /HPF (0-2); WBC,URINE 0-1 /HPF (0-1)
[2024-06-21 03:05] LABS: B-TYPE NATRIURETIC PEPTIDE 85 pg/mL (0-100)
[2024-06-21 03:28] LABS: COVID19 (SARS ANTIGEN RAPID) PRESUMPTIVE NEGATIVE (NEGATIVE); INFLUENZA TYPE A Negative For Type A (NEGATIVE); INFLUENZA TYPE B Negative For Type B (NEGATIVE)
[2024-06-21] MEDS: ondanSETRON 4MG INJ IVP ONE (03:29)
[2024-06-21] MEDS: FAMOTIDINE 20MG VIAL IV ONE (03:29)
[2024-06-21] MEDS: ketOROlac 30MG VIAL (30MG/ML) IVP ONE (03:29)
[2024-06-21 04:57] VITALS: BP 122/48; PULSE 65; RESP 18; O2SAT 99
[2024-06-21] MEDS ORDERED: OMEP40CA21 PO (05:04)
--- NOTE | 2024-06-21 06:40 | EKG ---
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
--- NOTE | 2024-06-21 09:35 | HMCIMG ---
Exam Type: CHEST 1VW Clinical Information: chest pain Comparison: None Findings: The lungs are clear of infiltrates. The heart is enlarged. Bony and soft tissue structures of the chest wall are unremarkable. IMPRESSION: Cardiomegaly. Clear lungs.
== END 2024-06-21 05:13 | disposition home or self-care (01) ==
LOC: EDH 01:51
DX: R07.89 Other chest pain (principal); E66.9 Obesity, unspecified; K21.9 Gastro-esophageal reflux disease without esophagitis; F41.9 Anxiety disorder, unspecified; J45.909 Unspecified asthma, uncomplicated; Z79.52 Long term (current) use of systemic steroids; Z79.899 Other long term (current) drug therapy; Z20.822 Contact with and (suspected) exposure to COVID-19
CPT/HCPCS: 99284; 96374; 96375; 71045; 87426; 82550; 84484; 80048; 83880; 85025; 87804 ×2; 81001; 81025; 36415; 93005; J1885; J3490; J2405